=== PATIENT | female | born 1935 | race Caucasian/White ===

== ENCOUNTER → 2017-10-24 | Day surgery (SDC) | payer MEDICARE ==
[2017-10-18 11:37] VITALS: BMI 30.4
[~2017-10-24] MED LIST: SODIUM CHLORIDE 0.9% 1,000 ML IV SCH
[2017-10-24 08:08] VITALS: BP 166/76; PULSE 76; RESP 18; TEMP 97.7
--- NOTE | 2017-10-24 12:45 | P.PCN ---
Preoperative Diagnosis: Indication for the procedure Recurrent syncope Twelve-lead ECG shows sinus rhythm normal MI narrow QRS normal ST segments no delta waves no epsilon waves normal QT interval PACs noted Tilt table test for protocol Baseline blood pressure 145/80 mmHg Baseline heart is 69 beats a minute patient was tilted upright at an angle of 70 per protocol was no significant change in her blood pressure her blood pressure remained in the 140-150s. The procedure without any symptoms No evidence for neurocardiogenic syncope No evidence for dysautonomia Impression Telemetry ECG shows PACs only with normal conduction intervals Tilt table test shows normal heart rate and blood pressure response to upright tilting Anesthesia: none Condition: stable Disposition: same day
== END | disposition home or self-care (01) ==
LOC: CATHEP 07:43
PROVIDERS: ATTEND Internal Medicine Clinical Cardiac Electrophysiology
DX: R55 Syncope and collapse (principal)
CPT/HCPCS: 93660

== ENCOUNTER 2018-09-06 19:05 | Inpatient (IN) | payer MEDICARE ==
[2018-09-06] MEDS ORDERED: SODIUM CHLORIDE 0.9% 500 ML 500 ML IV STA (19:21)
--- NOTE | 2018-09-06 19:54 | ED ---
General Adult HPI - General Chief complaint: Altered Mental Status Stated complaint: Confusion Time Seen by Provider: 09/06/18 19:12 Source: patient, RN notes reviewed, old records reviewed Mode of arrival: wheelchair Limitations: no limitations - History of Present Illness Initial comments: 82-year-old female presents for evaluation generalized weakness and confusion. She has had confusion for the past several days according to family. She has not been eating or drinking well with decreased appetite. No vomiting. No pain complaints. She does note bilateral lower extremity swelling and erythema which is been present for many years. She denies dysuria but states she's had some urinary frequency. No abdominal pain, no vomiting or diarrhea. No chest pain or dyspnea. - Related Data Home Medications Medication Instructions Recorded Confirmed Melatonin 10 mg PO HS 10/15/13 09/06/18 Aspirin EC [Ecotrin Low Dose] 81 mg PO DAILY 09/06/18 09/06/18 Furosemide [Lasix] 40 mg PO DAILY 09/06/18 09/06/18 Meloxicam 15 mg PO DAILY 09/06/18 09/06/18 Metolazone [Zaroxolyn] 5 mg PO DAILY 09/06/18 09/06/18 Potassium Chloride ER [K-Dur 20] 20 meq PO DAILY 09/06/18 09/06/18 Pramipexole [Mirapex] 0.5 mg PO BID 09/06/18 09/06/18 rOPINIRole HCL [Requip] 2 mg PO BID 09/06/18 09/06/18 Allergies Allergy/AdvReac Type Severity Reaction Status Date / Time morphine Allergy Unknown Verified 09/06/18 20:26 erythromycin base AdvReac Unknown Verified 09/06/18 20:26 [Erythromycin Base] hydromorphone HCl AdvReac Itching Verified 09/06/18 20:26 [From Dilaudid] Penicillins AdvReac Rash/Hives Verified 09/06/18 20:26 flu vaccine Allergy Unknown Uncoded 09/06/18 19:10 Review of Systems ROS Statement: Those systems with pertinent positive or pertinent negative responses have been documented in the HPI. ROS Other: All systems not noted in ROS Statement are negative. Past Medical History Past Medical History: Asthma, Chest Pain / Angina, CVA/TIA, Deep Vein Thrombosis (DVT), GERD/Reflux Additional Past Medical History / Comment(s): hx ulcer, hiatal hernia. blood clot x 3 left leg, anemia, bruises easily; see Dr Velázquez's H&P History of Any Multi-Drug Resistant Organisms: None Reported Past Surgical History: Appendectomy, Bladder Surgery, Section, Heart Catheterization, Hysterectomy, Joint Replacement Additional Past Surgical History / Comment(s): gastrectomy, stomach tumor removed, stomach stapling, surgery to reattach ureters, left knee replacement Past Anesthesia/Blood Transfusion Reactions: Motion Sickness Additional Past Anesthesia/Blood Transfusion Reaction / Comment(s): motion sickness in past Past Psychological History: No Psychological Hx Reported Smoking Status: Former smoker - Past Family History Mother Family Medical History: No Reported History General Exam Limitations: no limitations General appearance: alert, in no apparent distress Head exam: Present: atraumatic, normocephalic Eye exam: Present: normal appearance, PERRL ENT exam: Present: mucous membranes dry Neck exam: Present: normal inspection. Absent: tenderness, meningismus Respiratory exam: Present: normal lung sounds bilaterally. Absent: respiratory distress, wheezes Cardiovascular Exam: Present: regular rate, normal rhythm GI/Abdominal exam: Present: soft. Absent: distended, tenderness, guarding Extremities exam: Present: pedal edema, joint swelling, other (Bilateral lower extremity erythema to the mid calf) Neurological exam: Present: alert, oriented X3, CN II-XII intact. Absent: motor sensory deficit Psychiatric exam: Present: normal affect, normal mood Skin exam: Present: warm, dry Course Vital Signs 09/06/18 09/06/18 09/06/18 19:08 19:30 20:00 Temperature 97.8 F Pulse Rate 71 78 78 Respiratory 16 18 18 Rate Blood Pressure 101/59 105/58 114/65 O2 Sat by Pulse 98 Oximetry EKG Findings - EKG Comments: EKG Findings:: EKG: Atrial fibrillation with poor baseline, no ST segment elevation. Rate is 71, QRS duration 94, QTC 430 Medical Decision Making - Medical Decision Making 82-year-old female presenting for generalized weakness, intermittent confusion over the past 3 days. She is alert and oriented at the time of my evaluation with stable vitals. She has a nonfocal neurologic exam. EKG is sinus rhythm. Chest x-ray negative for focal pneumonia or acute findings, head CT shows chronic ischemic changes, no acute processes. She has normal CBC. She is a sodium of 1:15. She has baseline hyponatremia with a sodium typically around 135. She is potassium at 2.3. Creatinine 1.20, lactic acid 4.7. She will be admitted for electrolyte Replacement, close monitoring of Sodium. Discussed case with Dr. Fan and Dr. Lyons. Diuretics will be held. Dr. Fan recommends sodium chloride infusion at a rate of 75 mL/h. Recommends rechecking sodium at midnight tonight. He will be called with these results. If sodium does not respond, patient will require ICU and hypertonic saline. - Lab Data Result diagrams: 09/06/18 19:25 09/06/18 19:25 Lab Results 09/06/18 09/06/18 09/06/18 Range/Units 19:25 19:25 19:25 WBC 10.3 (3.8-10.6) k/uL RBC 4.58 (3.80-5.40) m/uL Hgb 13.0 (11.4-16.0) gm/dL Hct 37.0 (34.0-46.0) % MCV 80.9 (80.0-100.0) fL MCH 28.5 (25.0-35.0) pg MCHC 35.2 (31.0-37.0) g/dL RDW 14.8 (11.5-15.5) % Plt Count 302 (150-450) k/uL Neutrophils % 79 % Lymphocytes % 13 % Monocytes % 4 % Eosinophils % 3 % Basophils % 1 % Neutrophils # 8.1 H (1.3-7.7) k/uL Lymphocytes # 1.4 (1.0-4.8) k/uL Monocytes # 0.4 (0-1.0) k/uL Eosinophils # 0.3 (0-0.7) k/uL Basophils # 0.1 (0-0.2) k/uL PT (9.0-12.0) sec INR (<1.2) APTT (22.0-30.0) sec Sodium 115 L* (137-145) mmol/L Potassium 2.3 L* (3.5-5.1) mmol/L Chloride 74 L* (98-107) mmol/L Carbon Dioxide 24 (22-30) mmol/L Anion Gap 17 mmol/L BUN 21 H (7-17) mg/dL Creatinine 1.20 H (0.52-1.04) mg/dL Est GFR (CKD-EPI)AfAm 48 (>60 ml/min/1.73 sqM) Est GFR (CKD-EPI)NonAf 42 (>60 ml/min/1.73 sqM) Glucose 212 H (74-99) mg/dL Plasma Lactic Acid Davin 4.7 H* (0.7-2.0) mmol/L Calcium 8.1 L (8.4-10.2) mg/dL Magnesium 1.9 (1.6-2.3) mg/dL Total Bilirubin 0.5 (0.2-1.3) mg/dL AST 31 (14-36) U/L ALT 22 (9-52) U/L Alkaline Phosphatase 154 H (38-126) U/L Troponin I (0.000-0.034) ng/mL Total Protein 6.2 L (6.3-8.2) g/dL Albumin 3.8 (3.5-5.0) g/dL 09/06/18 09/06/18 Range/Units 19:25 19:25 WBC (3.8-10.6) k/uL RBC (3.80-5.40) m/uL Hgb (11.4-16.0) gm/dL Hct (34.0-46.0) % MCV (80.0-100.0) fL MCH (25.0-35.0) pg MCHC (31.0-37.0) g/dL RDW (11.5-15.5) % Plt Count (150-450) k/uL Neutrophils % % Lymphocytes % % Monocytes % % Eosinophils % % Basophils % % Neutrophils # (1.3-7.7) k/uL Lymphocytes # (1.0-4.8) k/uL Monocytes # (0-1.0) k/uL Eosinophils # (0-0.7) k/uL Basophils # (0-0.2) k/uL PT 9.9 (9.0-12.0) sec INR 0.9 (<1.2) APTT 25.9 (22.0-30.0) sec Sodium (137-145) mmol/L Potassium (3.5-5.1) mmol/L Chloride (98-107) mmol/L Carbon Dioxide (22-30) mmol/L Anion Gap mmol/L BUN (7-17) mg/dL Creatinine (0.52-1.04) mg/dL Est GFR (CKD-EPI)AfAm (>60 ml/min/1.73 sqM) Est GFR (CKD-EPI)NonAf (>60 ml/min/1.73 sqM) Glucose (74-99) mg/dL Plasma Lactic Acid Davin (0.7-2.0) mmol/L Calcium (8.4-10.2) mg/dL Magnesium (1.6-2.3) mg/dL Total Bilirubin (0.2-1.3) mg/dL AST (14-36) U/L ALT (9-52) U/L Alkaline Phosphatase (38-126) U/L Troponin I 0.040 H* (0.000-0.034) ng/mL Total Protein (6.3-8.2) g/dL Albumin (3.5-5.0) g/dL Critical Care Time Critical Care Time: Yes Total Critical Care Time: 35 Disposition Clinical Impression: Hyponatremia, Hypokalemia Disposition: ADMITTED IP TO THIS [facility] Condition: Stable Is patient prescribed a controlled substance at d/c from ED?: No Referrals: Grzegorz Pandey MD [Primary Care Provider] - 1-2 days Decision to Admit Reason: Admit from EC Decision Date: 09/06/18 Decision Time: 21:16
[2018-09-06 20:01] LABS: Albumin 3.8 g/dL (3.5-5.0); Calcium 8.1 mg/dL (8.4-10.2); Magnesium 1.9 mg/dL (1.6-2.3); Total Bilirubin 0.5 mg/dL (0.2-1.3); Total Protein 6.2 g/dL (6.3-8.2)
[2018-09-06 20:05] LABS: Potassium 2.3 mmol/L (3.5-5.1)
--- NOTE | 2018-09-06 20:16 | CT ---
EXAMINATION TYPE: CT brain wo con DATE OF EXAM: 09/06/2018 COMPARISON: 09/21/2012 HISTORY: weakness and confusion CT DLP: 1142.4 mGycm Automated exposure control for dose reduction was used. FINDINGS: There is cerebral cortical atrophy. There is no mass effect nor midline shift. There is no sign of in tracranial hemorrhage. There is mild hypodensity in the periventricular white matter. Calvarium is in tact. IMPRESSION: MILD ATROPHY. CHRONIC SMALL VESSEL ISCHEMIA. NO ACUTE INTRACRANIAL ABNORMALITY. NO SIGNIFICANT CHANGE .
--- NOTE | 2018-09-06 20:17 | XR ---
EXAMINATION TYPE: XR chest 2V DATE OF EXAM: 09/06/2018 COMPARISON: 06/19/2009 HISTORY: Weakness TECHNIQUE: Frontal and lateral views of the chest are obtained. FINDINGS: Heart is normal. Lungs are clear of consolidation. Thoracic aorta is atheromatous. There i s osteopenia. There is no pleural effusion. IMPRESSION: No active cardiopulmonary disease. Normal heart. No change.
[2018-09-06 20:25] LABS: INR 0.9 (<1.2); Partial Thromboplastin Time 25.9 sec (22.0-30.0); Prothrombin Time 9.9 sec (9.0-12.0)
[2018-09-06 20:31] LABS: Basophils # (A) 0.1 k/uL (0-0.2); Basophils % (A) 1 %; Eosinophils # (A) 0.3 k/uL (0-0.7); Eosinophils % (A) 3 %; Lymphocytes # (A) 1.4 k/uL (1.0-4.8); Lymphocytes % (A) 13 %; MCH 28.5 pg (25.0-35.0); MCHC 35.2 g/dL (31.0-37.0); MCV 80.9 fL (80.0-100.0); Mean Platelet Volume 7.6; Monocytes # (A) 0.4 k/uL (0-1.0); Monocytes % (A) 4 %; Neutrophils # (A) 8.1 k/uL (1.3-7.7); Neutrophils % (A) 79 %; Platelet Count 302 k/uL (150-450); RBC 4.58 m/uL (3.80-5.40); RDW 14.8 % (11.5-15.5); WBC 10.3 k/uL (3.8-10.6)
[2018-09-06] MEDS ORDERED: POTASSIUM CHLORIDE ER 20 MEQ TAB.ER PO STA (20:45)
[2018-09-06] MEDS ORDERED: SODIUM CHLORIDE 0.9% 500 ML 500 ML IV ONE (20:59)
[2018-09-06] MEDS ORDERED: NALOXONE 0.4 MG/ML 1 ML VIAL IV PRN (21:00)
[2018-09-06] MEDS: ACETAMINOPHEN TAB 325 MG TAB PO PRN (21:29)
[2018-09-06] MEDS: SODIUM CHLORIDE 0.9% 1,000 ML IV SCH (21:30)
[2018-09-06] MEDS: POTASSIUM CHLORIDE 10 MEQ in WATER FOR INJECTION 1 100ML.BAG IVPB SCH ×2 (21:34→23:22)
[2018-09-06 22:37] LABS: Glucose,Whole Blood 140 mg/dL (75-99)
[2018-09-07 02:27] LABS: Basophils % (A) 0 %; Eosinophils # (A) 0.3 k/uL (0-0.7); Eosinophils % (A) 2 %; HCT 34.3 % (34.0-46.0); HGB 12.1 gm/dL (11.4-16.0); Lymphocytes # (A) 1.1 k/uL (1.0-4.8); Lymphocytes % (A) 11 %; MCH 28.3 pg (25.0-35.0); MCHC 35.3 g/dL (31.0-37.0); MCV 80.4 fL (80.0-100.0); Mean Platelet Volume 7.1; Monocytes # (A) 0.4 k/uL (0-1.0); Monocytes % (A) 4 %; Neutrophils # (A) 8.9 k/uL (1.3-7.7); Neutrophils % (A) 82 %; Platelet Count 297 k/uL (150-450); RBC 4.26 m/uL (3.80-5.40); RDW 14.2 % (11.5-15.5); WBC 10.8 k/uL (3.8-10.6)
[2018-09-07 02:45] LABS: Albumin 3.3 g/dL (3.5-5.0); Magnesium 1.9 mg/dL (1.6-2.3); Phosphorus 2.3 mg/dL (2.5-4.5); Total Bilirubin 0.7 mg/dL (0.2-1.3); Total Protein 5.7 g/dL (6.3-8.2)
[2018-09-07 02:57] LABS: Potassium 2.4 mmol/L (3.5-5.1)
[2018-09-07] MEDS: POTASSIUM CHLORIDE 10 MEQ in WATER FOR INJECTION 1 100ML.BAG IVPB SCH (03:10)
[2018-09-07 03:30] LABS: Appearance,Urine Clear (Clear); Bacteria,Urine Rare /hpf; Bilirubin,Urine Negative (Negative); Blood,Urine Moderate (Negative); Color,Urine Colorless; Glucose,Urine (UA) Negative (Negative); Ketones,Urine Negative (Negative); Leukocyte Esterase,Urine Large (Negative); Nitrite,Urine Positive (Negative); PH, Urine 6.5 (5.0-8.0); Protein,Urine Negative (Negative); RBC,Urine 1 /hpf (0-5); Specific Gravity,Urine 1.004 (1.001-1.035); Urobilinogen,Urine <2.0 mg/dL (<2.0); WBC,Urine 14 /hpf (0-5)
[2018-09-07] MEDS: POTASSIUM CHLORIDE ER 20 MEQ TAB.ER PO SCH ×7 (03:50→21:56)
[2018-09-07] MEDS ORDERED: POTASSIUM PHOSPHATE 20 MMOL in SODIUM CHLORIDE 0.9% 250 ML IV ONE (04:00)
[2018-09-07] MEDS: ACETAMINOPHEN TAB 325 MG TAB PO PRN (06:33)
[2018-09-07 09:31] LABS: Potassium 2.9 mmol/L (3.5-5.1)
--- NOTE | 2018-09-07 09:45 | P.NPCON ---
History of Present Illness - Reason for Consult hyponatremia - History of Present Illness Reason for consultation: Hyponatremia History of present illness: Patient is a 82-year-old female seen in renal consultation for hyponatremia. Patient's sodium level was 115 on admission and she was also extremely h ypokalemic with a potassium level of 2.3. Patient's lactic acid level was high at 4.7. Patient was also noted to be in acute kidney injury with creatinine of 1.2. Patient received 1 L of normal saline in the ER. She was subsequently started on normal saline at 75 mL an hour. Sodium level has been gradually improving and is up to 123 this morning. Additionally she was noted to have severe urinary retention. Rascon catheter was placed and 1.8 L of urine was obtained. She is still maintained on normal saline at 75 mL an hour. Urine output has been about 100 mL an hour. Patient states her oral intake has been relatively fair but she does made to drinking 2-3 glasses of water, 8-10 Cokes, and 2 cans of beer almost on a daily basis. She was also taking meloxicam as well as Lasix at home. No hematuria or dysuria. No history of kidney disease. Creatinine is down to 0.99 today. Potassium level is up to 2.9. Vital signs are stable. General: The patient appeared well nourished and normally developed. HEENT: Head exam is unremarkable. Neck is without jugular venous distension. LUNGS: Lungs are clear to auscultation and percussion. Breath sounds decreased. HEART: Rate and Rhythm are regular. First and second heart sounds normal. No murmurs, rubs or gallops. ABDOMEN: Abdominal exam reveals normal bowel sounds. Non-tender and non- distended. No evidence of peritonitis. EXTREMITITES: No clubbing, cyanosis, or edema. Past Medical History Past Medical History: Asthma, Chest Pain / Angina, CVA/TIA, Deep Vein Thrombosis (DVT), GERD/Reflux Additional Past Medical History / Comment(s): hx ulcer, hiatal hernia. blood clot x 3 left leg, anemia, syncope,bruises easily; see Dr Velázquez's H&P History of Any Multi-Drug Resistant Organisms: None Reported Past Surgical History: Bladder Surgery, Section, Heart Catheterization, Hysterectomy, Joint Replacement Additional Past Surgical History / Comment(s): gastrectomy, stomach tumor re moved, stomach stapling, surgery to reattach ureters, left knee replacement Past Anesthesia/Blood Transfusion Reactions: Motion Sickness Additional Past Anesthesia/Blood Transfusion Reaction / Comment(s): motion sickness in past Past Psychological History: No Psychological Hx Reported Smoking Status: Former smoker Past Alcohol Use History: Daily Additional Past Alcohol Use History / Comment(s): smoked years ago socially; drinks 2 beers daily Past Drug Use History: None Reported - Past Family History Mother Family Medical History: Cancer Additional Family Medical History / Comment(s): "throat" CA Medications and Allergies Home Medications Medication Instructions Recorded Confirmed Type Melatonin 10 mg PO HS 10/15/13 09/06/18 History Aspirin EC [Ecotrin Low Dose] 81 mg PO DAILY 09/06/18 09/06/18 History Furosemide [Lasix] 40 mg PO DAILY 09/06/18 09/06/18 History Meloxicam 15 mg PO DAILY 09/06/18 09/06/18 History Metolazone [Zaroxolyn] 5 mg PO DAILY 09/06/18 09/06/18 History Potassium Chloride ER [K-Dur 20] 20 meq PO DAILY 09/06/18 09/06/18 History Pramipexole [Mirapex] 0.5 mg PO BID 09/06/18 09/06/18 History rOPINIRole HCL [Requip] 2 mg PO BID 09/06/18 09/06/18 History Allergies Allergy/AdvReac Type Severity Reaction Status Date / Time morphine Allergy Unknown Verified 09/06/18 20:26 erythromycin base AdvReac Unknown Verified 09/06/18 20:26 [Erythromycin Base] hydromorphone HCl AdvReac Itching Verified 09/06/18 20:26 [From Dilaudid] Penicillins AdvReac Rash/Hives Verified 09/06/18 20:26 flu vaccine Allergy Unknown Uncoded 09/06/18 19:10 Physical Exam Vitals: Vital Signs Temp Pulse Pulse Resp BP BP Pulse Ox 09/07/18 08:00 97.2 F L 73 16 102/68 98 09/07/18 07:00 80 20 98 09/07/18 06:00 69 14 09/07/18 04:00 97.6 F 76 18 102/68 98 09/07/18 00:30 64 16 122/76 99 09/06/18 22:10 98 09/06/18 22:07 97.8 F 14 109/70 99 09/06/18 22:00 97.8 F 71 18 105/66 09/06/18 21:50 20 102/61 09/06/18 21:40 16 102/61 09/06/18 21:30 79 17 100/79 100 09/06/18 21:20 67 19 100/79 80 L 09/06/18 21:10 72 15 100/79 99 09/06/18 21:00 77 15 108/78 85 L 09/06/18 20:50 70 17 108/78 80 L 09/06/18 20:40 75 11 L 108/78 84 L 09/06/18 20:00 78 18 114/65 09/06/18 19:30 78 18 105/58 09/06/18 19:08 97.8 F 71 16 101/59 98 Intake and Output 09/06/18 09/07/18 09/07/18 22:59 06:59 14:59 Intake Total 175 850 385 Output Total 50 2710 175 Balance 125 -1860 210 Intake: IV 175 700 325 Potassium Chloride 10 meq 100 100 In Water For Injection 1 100ml.bag @ 100 mls/hr IVPB Q1H [facility] Rx#: [id number] Potassium Phosphate 20 250 mmol In Sodium Chloride 0 .9% 250 ml @ 125 mls/hr IV ONCE ONE Rx#:[id number] Sodium Chloride 0.9% 1, 75 600 75 000 ml @ 75 mls/hr IV . [id number] [facility] Rx#:[id number] Oral 150 60 Output: Urine 50 2710 175 Other: Voiding Method Indwelling Catheter # Voids 1 # Bowel Movements 1 1 Weight 70.307 kg 71.5 kg Results - Lab Results Most recent lab results Calcium 8.0 mg/dL (8.4-10.2) L 09/07/18 02:00 Phosphorus 2.3 mg/dL (2.5-4.5) L 09/07/18 02:00 Magnesium 1.9 mg/dL (1.6-2.3) 09/07/18 02:00 09/07/18 02:00 09/07/18 09:10 Assessment and Plan Plan: Assessment: 1. Hypovolemic hyponatremia improving with normal saline. Additionally there is also component of urinary retention. Sodium level was 115 on admission and is up to 123 this morning. 2. Urinary retention status post Rascon catheter placement. 3. Hypokalemia from poor oral intake and diuretics. Magnesium normal. 4. Hypophosphatemia from poor oral intake and diuretics. 5. Acute kidney injury mostly prerenal secondary to intravascular volume depletion from diuretics and poor oral intake. Better. Plan: Discontinue normal saline. Start D5W at 70 mL an hour. Recheck sodium level at 1 PM. Continue with potassium and phosphorus of placement. Continue to hold diuretics. Avoid rapid correction of hyponatremia. Check serum osmolality, urine osmolality and urine sodium. Check TSH and uric acid. Thank you for the consultation. I will continue to follow the patient with you during her hospital stay.
[2018-09-07] MEDS: DEXTROSE 5% IN WATER 1,000 ML IV SCH ×2 (09:47→21:57)
[2018-09-07 10:18] LABS: Uric Acid 7.7 mg/dL (3.7-7.4)
[2018-09-07] MEDS: ASPIRIN 81 MG PO SCH (14:57)
[2018-09-07] MEDS: ENOXAPARIN 40 MG/0.4 ML SYRINGE SQ SCH (14:58)
[2018-09-07 17:24] LABS: Potassium 3.2 mmol/L (3.5-5.1)
--- NOTE | 2018-09-07 17:33 | HP ---
HISTORY AND PHYSICAL DATE OF ADMISSION: 09/06/18 DATE OF SERVICE: 09/07/18 PRESENTING COMPLAINT: Slightly confused, weak. HISTORY OF PRESENTING COMPLAINT: This is a pleasant 82-year-old patient of Dr. Pandey from [place]. The patient lives by herself. Chronic stable medical conditions include asthma, GERD, hiatal hernia. The patient presented to the ER yesterday evening. The patient's daughter lives a few doors away from her and according to the daughter, patient had been getting increasingly more confused in the last few days. The patient's appetite had gone down. Not been eating and drinking too well. No vomiting. No fever. No chills. The patient has chronic bilateral lower extremity swelling and erythema. The patient was found to have a low sodium of sodium of 115 and she was admitted for telemetry monitoring. Nephrology was consulted. Initially, IV fluids were given. The patient's urine output had been not been good, but then patient was found a urine retention of 1800 mL and patient did put out good urine. The patient is being monitored on telemetry. The patient does drink a lot of water, likes to have a couple of beers a day and also loves to drink Coke. REVIEW OF SYSTEMS: CONSTITUTIONAL: Tired. HEENT: Decreased hearing. RESPIRATORY: None. CARDIOVASCULAR: None. GASTROINTESTINAL: Some heartburn. GENITOURINARY: None. MUSCULOSKELETAL: Arthritic pain in the joints. DERMATOLOGICAL, HEMATOLOGIC, LYMPHATIC: None. PSYCHIATRY: Forgetful. NEUROLOGICAL: Does use a cane to get about. PAST MEDICAL HISTORY: Asthma, TIA, DVT, GERD, hiatal hernia, peptic ulcer disease. PAST SURGICAL HISTORY: Bladder surgery, , cardiac catheterization, gastrectomy, stomach tumor removed, stomach stapling surgery to reattach ureters, left knee replacement. SOCIAL HISTORY: Smokes occasionally. Drinks 2 beers a day. Drinks a lot of water. Lives by herself. Daughter lives a few doors away. FAMILY HISTORY: Throat cancer. HOME MEDICATIONS: 1. Requip 2 mg b.i.d. 2. Mirapex 0.5 mg b.i.d. 3. Melatonin 10 mg q.h.s. 4. Potassium 20 mEq a day. 5. Zaroxolyn 5 mg daily. 6. Meloxicam 50 mg p.o. daily. 7. Lasix 40 mg daily. 8. Aspirin 81 mg p.o. daily. ALLERGIES: MORPHINE, ERYTHROMYCIN, DILAUDID, PENICILLIN, FLU VACCINE. PHYSICAL EXAMINATION: On examination: Temperature 97.8, pulse 71, respirations 16, blood pressure 101/59, pulse ox 98% on room air. GENERAL APPEARANCE: Average build, sitting up in a chair, awake. EYES: Pupils equal. Conjunctivae normal. HEENT: External appearance of nose and ears normal. Oral cavity normal. Decreased hearing. NECK: JVD not raised. Mass not palpable. RESPIRATORY: Effort normal. LUNGS: Fair entry. CARDIOVASCULAR: First and second sounds normal. Nonpitting edema. ABDOMEN: Soft, nontender. Liver and spleen not palpable. LYMPHATIC: No lymph nodes palpable in the neck and axilla. PSYCHIATRY: Patient is able to answer simple questions. NEUROLOGICAL: Pupils equal. Cranial nerves grossly intact. Power and sensation grossly intact. MUSCULOSKELETAL: Evidence of osteoarthritis especially in the hands and knees. INVESTIGATIONS: White count 10.3, hemoglobin 13. Sodium 115, potassium 2.3, chloride 74, BUN 21, creatinine 1.20. Plasma lactic acid 4.7, troponin 0.040. ASSESSMENT: 1. Acute severe hyponatremia, hypoosmolar from hypovolemia from severe diuretics and patient also drinking water on top of that, symptomatic. 2. Severe hypokalemia from aggressive diuresis. 3. Acute metabolic encephalopathy on presentation from severe hyponatremia. 4. Restless legs syndrome. 5. Chronic idiopathic insomnia for which patient takes melatonin. 6. Chronic lower extremity venous insufficiency. 7. Primary osteoarthritis. PLAN: Patient was treated with saline, sodium has been coming up. Potassium been aggressively replaced. Care was discussed with the daughter at the bedside. The patient told to adjust the way she drinks her fluids and of course patient's diuretics have been discontinued for right now. The patient's IV fluids will be adjusted accordingly. Will monitor slow correction of sodium. Follow up with Nephrology. Care was discussed with the patient and daughter at the bedside. MMODL / IJN: [id number] /
[2018-09-07] MEDS: SODIUM CHLORIDE 0.9% 1,000 ML IV SCH (21:33)
[2018-09-07] MEDS: PRAMIPEXOLE 0.5 MG TAB PO SCH (21:56)
[2018-09-07] MEDS: MELATONIN 5 MG TABLET PO SCH (21:56)
[2018-09-07 22:30] LABS: Potassium 3.9 mmol/L (3.5-5.1)
[2018-09-08] MEDS ORDERED: DESMOPRESSIN ACETATE 4 MCG/ML VIAL (MDV) IV ONE
[2018-09-08] MEDS: POTASSIUM CHLORIDE ER 20 MEQ TAB.ER PO SCH (00:05)
[2018-09-08] MEDS: DEXTROSE 5% IN WATER 1,000 ML IV SCH ×2 (01:30→21:20)
[2018-09-08 06:04] LABS: Calcium 8.7 mg/dL (8.4-10.2); Phosphorus 2.7 mg/dL (2.5-4.5); Potassium 4.6 mmol/L (3.5-5.1)
[2018-09-08] MEDS: ASPIRIN 81 MG PO SCH (08:06)
[2018-09-08] MEDS: ENOXAPARIN 40 MG/0.4 ML SYRINGE SQ SCH (08:06)
[2018-09-08] MEDS: PRAMIPEXOLE 0.5 MG TAB PO SCH ×2 (08:07→22:21)
--- NOTE | 2018-09-08 15:04 | PN ---
PROGRESS NOTE Patient is seen for followup for hyponatremia. Patient's serum sodium was 115 at the time of admission. It did go up to 124 yesterday on 09/07, and patient was started on D5W. She also received a dose of DDAVP to avoid rapid correction. Since then, the serum sodium has been at about 125 mEq/L for the last 3 readings since last night. The patient has had oral intake. She is currently not on any IV fluids. Urine osmolality was 147. Random urine sodium was 38. The patient did admit to decreased intake of protein prior to admission. She was also hypokalemic and has had potassium replacement. On examination, blood pressure was 119/66, heart rate 75 per minute, patient is afebrile. Examination of the heart, S1, S2. Examination of the lungs, bilateral breath sounds are heard. Abdomen is soft, nontender. Examination of the lower extremities shows no significant edema. 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 LABS: Show sodium 125 this morning, potassium 4.6, serum creatinine 0.78. ASSESSMENT: 1. Hyponatremia, initially hypovolemic currently improved. Serum sodium did increase rapidly. Therefore, the fluids were changed to D5W for some time, and patient also received a dose of DDAVP last night. At this time, her sodium is staying at about 125 and we can allow the serum sodium to rise now since it has been 2 days since admission. The patient has had increased oral intake. Hopefully, this will help. I will not keep her on any fluid restriction. We will recheck his serum sodium this evening. If it has not improved much, saline will be restarted. 2. Urine retention, currently with Rascon catheter. 3. Hypokalemia from decreased oral intake and diuretics, currently replaced. 4. Acute kidney injury, currently improved. Serum creatinine down from 1.2 to 0.78. PLAN: Continue to encourage increased oral intake. Repeat serum sodium this evening. If not further improved, I will add normal saline. MMODL / IJN: [id number] /
[2018-09-08] MEDS ORDERED: SODIUM CHLORIDE 0.9% 1,000 ML IV SCH (20:15)
[2018-09-08] MEDS: MELATONIN 5 MG TABLET PO SCH (22:21)
[2018-09-09 00:28] LABS: African American GFR (CKD) >90 (>60 ml/min/1.73 sqM); Anion Gap 8 mmol/L; Blood Urea Nitrogen 12 mg/dL (7-17); Calcium 8.6 mg/dL (8.4-10.2); Carbon Dioxide 23 mmol/L (22-30); Chloride 90 mmol/L (98-107); Glucose 121 mg/dL (74-99); Potassium 4.1 mmol/L (3.5-5.1); Sodium 121 mmol/L (137-145)
--- NOTE | 2018-09-09 06:19 | PN ---
PROGRESS NOTE DATE OF SERVICE: 09/08/2018 PRESENTING COMPLAINT: Tired. INTERVAL HISTORY: This patient presented with symptomatic hyponatremia, hypoosmolar, hypovolemic from severe diuretic. Sodium is slowly coming up. Patient had initially received IV fluids. The patient made a lot of urine output today, was given a dose of DDAVP. Potassium replaced. Moved out of ICU. REVIEW OF SYSTEMS: Done for constitutional, cardiovascular, GI, pulmonary; relevant findings as above. CURRENT MEDICATIONS: Current medications are reviewed that include normal saline. PHYSICAL EXAMINATION: On examination, temperature 96.9, pulse 58, respiration 16, blood pressure 138/64, pulse ox 98% on room air. GENERAL APPEARANCE: Lying in bed, comfortable. EYES: Pupils equal. Conjunctivae normal. NECK: JVD not raised. Mass not palpable. RESPIRATORY: Effort normal. LUNGS: Are clear. CARDIOVASCULAR: First and second sounds normal. Nonpitting edema. ABDOMEN: Soft, nontender. Liver and spleen not palpable. PSYCHIATRY: Alert and oriented x3. Mood and affect normal. INVESTIGATIONS: Sodium 125. ASSESSMENT: 1. Severe hyponatremia initially hypovolemic, hypoosmolar, slowly coming up. The patient has been put back on saline. 2. Severe hypokalemia, being replaced. 3. Acute metabolic encephalopathy on presentation from severe hyponatremia improving. 4. Restless legs syndrome. 5. Chronic idiopathic insomnia for which patient takes melatonin. 6. Chronic lower extremity venous insufficiency. 7. Primary osteoarthritis. PLAN: Continue current medication and treatment plan. Care was discussed with the patient. Follow with Nephrology. MMODL / IJN: [id number] /
[2018-09-09] MEDS: ENOXAPARIN 40 MG/0.4 ML SYRINGE SQ SCH (08:38)
[2018-09-09] MEDS: ASPIRIN 81 MG PO SCH (08:38)
[2018-09-09] MEDS: PRAMIPEXOLE 0.5 MG TAB PO SCH ×2 (08:38→20:03)
[2018-09-09] MEDS ORDERED: SODIUM CHLORIDE TAB 1 GM TAB PO STA ×2 (10:42→22:19)
[2018-09-09] MEDS ORDERED: FUROSEMIDE 10 MG/ML 2 ML VIAL IV STA (10:43)
--- NOTE | 2018-09-09 14:14 | PN ---
PROGRESS NOTE Patient is seen for followup for hyponatremia. His serum sodium had gone up from 115 to 125 for which she was given a dose of DDAVP to prevent rapid increase in the sodium. Patient also received D5W for short periods of time. Following that, his serum sodium has been staying at 125. It did drop down to 123 yesterday and this morning it is at 121. Patient was started on normal saline last night and currently I have held it as his serum sodium has dropped. The patient will be maintained on fluid restriction and will give her a dose of sodium chloride tabs today. 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 PHYSICAL EXAMINATION: Today, blood pressure was 120/61, heart rate 67 per minute. She is afebrile. Examination of the heart S1, S2. Examination of the lungs, bilateral breath sounds are heard. Abdomen is soft, nontender. Examination of the lower extremities shows no significant edema. BAGGAGE SMASHER exam is grossly intact. LABS: Shows sodium 121, potassium 4.1, serum creatinine 0.7. ASSESSMENT: 1. Hyponatremia, euvolemic, initially hypovolemic and improved with saline, status post DDAVP to prevent . Patient was started on saline last night and her sodium level dropped this morning, therefore, I will discontinue the normal saline and will be give her a sodium chloride tab and repeat sodium this evening. She should be maintained on fluid restriction as well. The patient is advised to increase protein in her diet. Urine osmolality was significantly low, suggesting underlying tea and toast syndrome. I will check another urine osmolality state. 2. Urine retention status post Rascon catheter. 3. Acute kidney injury, mainly prerenal currently improved and resolved. 4. Hypokalemia from decreased oral intake, status post replacement. PLAN: Continue to hold off on diuretics, sodium chloride 2 g p.o. x1 now, maintain patient off of IV fluids and repeat sodium this afternoon and maintain patient on fluid restriction as well. Increase protein intake. MMODL / IJN: [id number] /
[2018-09-09] MEDS: MELATONIN 5 MG TABLET PO SCH (20:08)
--- NOTE | 2018-09-10 06:26 | PN ---
PROGRESS NOTE DATE OF SERVICE: September 09, 2018 PRESENTING COMPLAINT: Tired. INTERVAL HISTORY: Patient presented symptomatic hyponatremia, hypoosmolar, hypovolemic from severe diuresis. Sodium is holding around 125. Occasionally patient has been delirious. The patient is status post normal saline. Did tolerate some diet. Otherwise comfortable. Daughter at the bedside. The patient is on the medical floor. REVIEW OF SYSTEMS: Done for constitutional, cardiovascular, GI, pulmonary and relevant findings as above. CURRENT MEDICATIONS: Reviewed. The patient is off normal saline. PHYSICAL EXAMINATION: VITAL SIGNS: Temperature 97.1 pulse 67, respiration 17, blood pressure 116/66, pulse ox 100 percent on room air. GENERAL APPEARANCE: Lying in bed, awake. EYES: Pupils equal. Conjunctivae normal. NECK: JVD not raised. Mass not palpable. RESPIRATORY: Effort normal. LUNGS: Clear. CARDIOVASCULAR: First and second sounds normal. Nonpitting edema. ABDOMEN: Soft, nontender. Liver and spleen not palpable. PSYCHIATRY: Alert, oriented x3. Mood and affect normal. INVESTIGATIONS: Sodium 122, potassium 4.1. ASSESSMENT: 1. Severe hyponatremia, initially hypovolemic, hypoosmolar, now slow to respond. 2. Severe hypokalemia, being replaced. 3. Acute metabolic encephalopathy on presentation with severe hypernatremia, improving. 4. Restless legs syndrome. 5. Chronic idiopathic insomnia. 6. Chronic lower extremity venous insufficiency. 7. Primary osteoarthritis. PLAN: We will add salt tablets. I told the patient to hold off on drinking clear liquids and habit in a different form, for example, chicken broth or juices. Repeat serum osmolality in the morning. MMODL / IJN: [id number] /
[2018-09-10 07:08] LABS: African American GFR (CKD) >90 (>60 ml/min/1.73 sqM); Anion Gap 8 mmol/L; Blood Urea Nitrogen 9 mg/dL (7-17); Calcium 8.8 mg/dL (8.4-10.2); Carbon Dioxide 28 mmol/L (22-30); Chloride 89 mmol/L (98-107); Glucose 124 mg/dL (74-99); Potassium 3.8 mmol/L (3.5-5.1); Sodium 125 mmol/L (137-145)
[2018-09-10 07:38] LABS: Basophils # (A) 0.1 k/uL (0-0.2); Basophils % (A) 1 %; Eosinophils # (A) 0.3 k/uL (0-0.7); Eosinophils % (A) 3 %; HCT 35.7 % (34.0-46.0); HGB 11.8 gm/dL (11.4-16.0); Lymphocytes # (A) 1.5 k/uL (1.0-4.8); Lymphocytes % (A) 20 %; MCH 28.4 pg (25.0-35.0); MCHC 33.2 g/dL (31.0-37.0); Mean Platelet Volume 7.4; Monocytes # (A) 0.4 k/uL (0-1.0); Monocytes % (A) 5 %; Neutrophils # (A) 5.2 k/uL (1.3-7.7); Neutrophils % (A) 69 %; Platelet Count 293 k/uL (150-450); RBC 4.16 m/uL (3.80-5.40); WBC 7.5 k/uL (3.8-10.6)
[2018-09-10 07:41] LABS: MCV 85.7 fL (80.0-100.0)
[2018-09-10] MEDS: ACETAMINOPHEN TAB 325 MG TAB PO PRN (07:55)
[2018-09-10] MEDS: PRAMIPEXOLE 0.5 MG TAB PO SCH ×2 (07:56→21:00)
[2018-09-10] MEDS: ASPIRIN 81 MG PO SCH (07:56)
[2018-09-10] MEDS: ENOXAPARIN 40 MG/0.4 ML SYRINGE SQ SCH (07:56)
[2018-09-10] MEDS: SODIUM CHLORIDE TAB 1 GM TAB PO SCH ×3 (07:56→21:00)
--- NOTE | 2018-09-10 20:47 | PN ---
PROGRESS NOTE Patient is seen for followup for hyponatremia. This morning, patient is comfortable. She feels well. She received sodium chloride tabs yesterday. The sodium is up to 125. Overall, patient denies any other significant complaints. PHYSICAL EXAMINATION: This morning blood pressure was 117/69, heart rate 74 per minute. She is afebrile. Examination of the heart S1, S2. Examination of the lungs, bilateral breath sounds are heard. Abdomen is soft, nontender. Examination of lower extremities shows trace edema bilaterally. OUTREACH ANALYST exam is grossly intact. LABS: Show sodium 125, potassium 3.8, serum creatinine 0.7, calcium was 8.8. ASSESSMENT: 1. 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 The patient received sodium chloride tabs, which has helped with her serum sodium level. She has been started on a regular dose of sodium chloride tablets. I will, however, decrease the dose to twice a day. It is quite a large sodium load for this elderly patient if we give it as 4 times a day. 2. Metabolic encephalopathy secondary to hyponatremia on initial admission, currently improved. 3. Chronic lower extremity insufficiency. PLAN: Maintain good oral protein intake. Continue with salt tablets, but decrease to twice a day. Repeat labs in a.m.. MMODL / IJN: [id number] /
[2018-09-10] MEDS: MELATONIN 5 MG TABLET PO SCH (21:00)
--- NOTE | 2018-09-10 22:22 | PN ---
PROGRESS NOTE DATE OF SERVICE: September 10, 2018 PRESENTING COMPLAINT: Low sodium. INTERVAL HISTORY: Patient presented with symptomatic hyponatremia hypoosmolar hypovolemic from increased free fluid intake and using diuretics. Sodium tablets were added yesterday. The patient has been told to cut back on free fluid. Sodium is slowly coming up. Did walk a few steps in the room. Oral intake oral intake is good. Daughter at the bedside. No new issues. REVIEW OF SYSTEMS: Done for constitutional, cardiovascular, GI, pulmonary; relevant findings as above. CURRENT MEDICATIONS: Reviewed that include sodium tablets 2 tablets twice a day. PHYSICAL EXAMINATION: Temperature 97.8. Pulse 67, respiration 20, blood pressure 106/67. Pulse ox 99% on room air. GENERAL APPEARANCE: Lying in bed, awake, comfortable. EYES: Pupils are equal. Conjunctivae normal. NECK: JVD not raised. Mass not palpable. RESPIRATORY: Effort normal. LUNGS are clear. CARDIOVASCULAR: First and second sounds normal. No edema. ABDOMEN: Soft, nontender. Liver and spleen not palpable. PSYCHIATRY: Alert and oriented times three. Mood and affect normal. INVESTIGATIONS: White count 7.5, hemoglobin 11.8, potassium 3.8. Sodium is 125, serum osmolality is 257. ASSESSMENT: 1. Severe hyponatremia, initially hypovolemic, hypoosmolar, slow to respond. 2. Severe hypokalemia. Potassium being replaced. 3. Acute metabolic encephalopathy on presentation, improved. 4. Restless legs syndrome. 5. Chronic idiopathic insomnia. 6. Chronic lower extremity venous insufficiency. 7. Primary osteoarthritis. PLAN: Care was discussed with the daughter at the bedside. Continue to follow. Check sodium. Follow up with Nephrology. MMODL / IJN: [id number] /
[2018-09-11] MEDS: ASPIRIN 81 MG PO SCH (07:38)
[2018-09-11] MEDS: PRAMIPEXOLE 0.5 MG TAB PO SCH ×2 (07:38→20:06)
[2018-09-11] MEDS: SODIUM CHLORIDE TAB 1 GM TAB PO SCH ×3 (07:38→20:06)
[2018-09-11] MEDS: ENOXAPARIN 40 MG/0.4 ML SYRINGE SQ SCH (07:39)
[2018-09-11 07:52] LABS: African American GFR (CKD) >90 (>60 ml/min/1.73 sqM); Anion Gap 6 mmol/L; Blood Urea Nitrogen 10 mg/dL (7-17); Calcium 8.9 mg/dL (8.4-10.2); Carbon Dioxide 28 mmol/L (22-30); Chloride 92 mmol/L (98-107); Glucose 123 mg/dL (74-99); Potassium 4.1 mmol/L (3.5-5.1); Sodium 126 mmol/L (137-145)
--- NOTE | 2018-09-11 14:13 | PN ---
PROGRESS NOTE Patient is seen for followup for hyponatremia. Her serum sodium continues to improve. She has been maintained on sodium chloride tabs. Patient's blood pressure has been running low and her urine osmolality was low as well, seems to be responding to the sodium chloride tablets fairly with increase in the sodium to 126 today. On examination, blood pressure was 107/60, heart rate of 96 per minute. Patient is afebrile. Examination of the heart, S1, S2. Examination of the lungs, bilateral breath sounds are heard. Abdomen is soft, nontender. Examination of the lower extremities shows no significant edema. LABS: Show sodium 126, potassium 4.1, serum creatinine 0.9. ASSESSMENT: 1. Hyponatremia secondary to underlying decreased urine osmolality but has similar tea and toast syndrome, maintained on sodium chloride tablets with improvement in the sodium level. 2. Metabolic encephalopathy secondary to hyponatremia on initial admission, currently improved. 3. Hypokalemia on initial admission, now resolved. 4. Acute kidney injury, currently resolved, which was mainly prerenal. PLAN: Continue with the sodium chloride tablets. Repeat labs in a.m. Consider 1 dose of tolvaptan. We will proceed with that if the sodium is not significantly improved tomorrow. MMODL / IJN: [id number] /
[2018-09-11] MEDS: MELATONIN 5 MG TABLET PO SCH (20:06)
[2018-09-12 04:30] VITALS: TEMP 97.7
[2018-09-12] MEDS: ACETAMINOPHEN TAB 325 MG TAB PO PRN (04:32)
[2018-09-12 07:44] LABS: African American GFR (CKD) >90 (>60 ml/min/1.73 sqM); Anion Gap 7 mmol/L; Blood Urea Nitrogen 10 mg/dL (7-17); Carbon Dioxide 26 mmol/L (22-30); Chloride 95 mmol/L (98-107); Glucose 104 mg/dL (74-99); Potassium 3.6 mmol/L (3.5-5.1); Sodium 128 mmol/L (137-145)
[2018-09-12 08:16] LABS: Basophils # (A) 0.1 k/uL (0-0.2); Basophils % (A) 1 %; Eosinophils # (A) 0.2 k/uL (0-0.7); Eosinophils % (A) 4 %; HCT 35.3 % (34.0-46.0); Lymphocytes # (A) 1.9 k/uL (1.0-4.8); Lymphocytes % (A) 28 %; MCHC 33.9 g/dL (31.0-37.0); MCV 85.6 fL (80.0-100.0); Mean Platelet Volume 7.4; Monocytes # (A) 0.3 k/uL (0-1.0); Monocytes % (A) 5 %; Neutrophils # (A) 4.2 k/uL (1.3-7.7); Neutrophils % (A) 61 %; Platelet Count 292 k/uL (150-450); RBC 4.13 m/uL (3.80-5.40); RDW 15.4 % (11.5-15.5); WBC 6.8 k/uL (3.8-10.6)
[2018-09-12 09:15] VITALS: BP 122/57; PULSE 85; RESP 16
--- NOTE | 2018-09-12 09:29 | PN ---
PROGRESS NOTE Patient is seen for followup for hyponatremia. His serum sodium continues to improve. She is maintained on sodium chloride tabs. On admission, patient's urine osmolality was low at 147 . She has been encouraged to increase her oral intake. There is a component of tea and toast syndrome on initial admission. PHYSICAL EXAMINATION: This morning, patient is comfortable. Blood pressure is 143/64, heart rate 65 per minute. She is afebrile. Examination of the heart, S1, S2. Examination of the lungs, bilateral breath sounds are heard. Abdomen is soft, nontender. Examination of the lower extremities shows no significant edema. MEDICAL OBSERVER exam is grossly intact. LABS: Show sodium 128, potassium 3.6, chloride 95, serum creatinine 0.65. ASSESSMENT: 1. 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 Patient could be discharged on sodium chloride tabs but she will need close followup as we need to be cautious with using high-dose sodium chloride in elderly. Patient's blood pressure is not elevated and she does not have significant edema currently. 2. Metabolic encephalopathy secondary to hyponatremia on initial admission, currently resolved. 3. Acute kidney injury on initial admission, mainly prerenal currently resolved. PLAN: Continue with sodium chloride tabs as outpatient. However, I would maintain it at 1 g twice a day with close followup as outpatient. MMODL / IJN: [id number] /
[2018-09-12] MEDS: PRAMIPEXOLE 0.5 MG TAB PO SCH (10:08)
[2018-09-12] MEDS: SODIUM CHLORIDE TAB 1 GM TAB PO SCH (10:08)
[2018-09-12] MEDS: ASPIRIN 81 MG PO SCH (10:08)
[2018-09-12] MEDS: ENOXAPARIN 40 MG/0.4 ML SYRINGE SQ SCH (10:09)
[2018-09-12 13:54] VITALS: BMI 28.8
== END 2018-09-12 14:16 | disposition home health service (06) | DRG 640 ==
LOC: EC 19:05 → 2SICU 21:03 → 3SCARD 09-08 13:52
PROVIDERS: ADMIT Hospitalist; ATTEND Hospitalist
DX: E87.1 Hypo-osmolality and hyponatremia (principal); G93.41 Metabolic encephalopathy; N17.9 Acute kidney failure, unspecified; E87.6 Hypokalemia; E86.1 Hypovolemia; E83.39 Other disorders of phosphorus metabolism; F17.200 Nicotine dependence, unspecified, uncomplicated; F51.01 Primary insomnia; G25.81 Restless legs syndrome; I87.2 Venous insufficiency (chronic) (peripheral); J45.909 Unspecified asthma, uncomplicated; K21.9 Gastro-esophageal reflux disease without esophagitis; K44.9 Diaphragmatic hernia without obstruction or gangrene; M19.91 Primary osteoarthritis, unspecified site; Z79.1 Long term (current) use of non-steroidal anti-inflammatories (NSAID); Z79.82 Long term (current) use of aspirin; Z79.899 Other long term (current) drug therapy; Z80.8 Family history of malignant neoplasm of other organs or systems; Z86.73 Personal history of transient ischemic attack (TIA), and cerebral infarction without residual deficits; Z87.11 Personal history of peptic ulcer disease; Z90.710 Acquired absence of both cervix and uterus; Z96.652 Presence of left artificial knee joint; Z88.1 Allergy status to other antibiotic agents; Z88.5 Allergy status to narcotic agent; Z88.0 Allergy status to penicillin; Z88.7 Allergy status to serum and vaccine; R33.9 Retention of urine, unspecified
CPT/HCPCS: 36415; 70450; 71046; 80048; 80053; 81001; 83605; 83735; 83930; 83935; 84100; 84132; 84295; 84300; 84443; 84484; 84550; 85025; 85610; 85730; 87040; 87077; 87086; 87186; 93005; 94760; 96361; 96365; 99291

== ENCOUNTER 2018-11-15 07:35 | Emergency (ER) | payer MEDICARE ==
[2018-11-15] MEDS ORDERED: SODIUM CHLORIDE 0.9% 500 ML 500 ML IV STA (07:48)
[2018-11-15] MEDS ORDERED: LEVOFLOXACIN 750MG-D5W PMX 750 MG in DEXTROSE/WATER 1 150ML.BAG IVPB STA (08:00)
[2018-11-15 08:31] LABS: Basophils % (A) 0 %; Eosinophils # (A) 0.1 k/uL (0-0.7); Eosinophils % (A) 1 %; HCT 28.6 % (34.0-46.0); Lymphocytes # (A) 0.7 k/uL (1.0-4.8); Lymphocytes % (A) 8 %; MCH 27.7 pg (25.0-35.0); MCHC 31.5 g/dL (31.0-37.0); Mean Platelet Volume 6.5; Monocytes # (A) 0.3 k/uL (0-1.0); Monocytes % (A) 3 %; Neutrophils % (A) 89 %; Platelet Count 477 k/uL (150-450); RBC 3.26 m/uL (3.80-5.40); RDW 14.8 % (11.5-15.5); WBC 9.1 k/uL (3.8-10.6)
[2018-11-15 08:34] LABS: ALT 11 U/L (9-52); AST 15 U/L (14-36); African American GFR (CKD) >90 (>60 ml/min/1.73 sqM); Albumin 3.3 g/dL (3.5-5.0); Alkaline Phosphatase 107 U/L (38-126); Anion Gap 11 mmol/L; Blood Urea Nitrogen 13 mg/dL (7-17); Calcium 8.7 mg/dL (8.4-10.2); Carbon Dioxide 22 mmol/L (22-30); Chloride 94 mmol/L (98-107); Glucose 156 mg/dL (74-99); Partial Thromboplastin Time 24.9 sec (22.0-30.0); Potassium 3.5 mmol/L (3.5-5.1); Prothrombin Time 10.4 sec (9.0-12.0); Sodium 127 mmol/L (137-145); Total Bilirubin 0.3 mg/dL (0.2-1.3); Total Protein 5.9 g/dL (6.3-8.2)
[2018-11-15 08:35] LABS: MCV 87.7 fL (80.0-100.0)
--- NOTE | 2018-11-15 08:58 | XR ---
EXAMINATION TYPE: XR chest 2V DATE OF EXAM: 11/15/2018 HISTORY: Fever. REFERENCE: Previous study dated 09/06/2018. FINDINGS: The heart is mildly enlarged. There is some chronic parenchymal changes at the left lung ba se. Lungs are otherwise clear. Pleural spaces are clear. IMPRESSION: 1. MILD CARDIOMEGALY. 2. CHRONIC PARENCHYMAL CHANGE, LEFT LUNG BASE.
--- NOTE | 2018-11-15 09:00 | XR ---
EXAMINATION TYPE: XR KUB , 2 VIEWS DATE OF EXAM ORDERED: 11/15/2018 HISTORY: pain. COMPARISON: Previous study dated 12/05/2013. FINDINGS: The lung bases are clear. There is been extensive epigastric and left upper quadrant surgery. The abdominal gas pattern is within normal limits. There is no evidence of obstruction or free air. T here is a moderate stool burden. There is a moderate levoscoliosis. There are phleboliths within the pelvis. IMPRESSION: 1. NO ACUTE INTRA-ABDOMINAL ABNORMALITY. 2. CONSTIPATION. 3. MODERATE LEVOSCOLIOSIS.
[2018-11-15] MEDS ORDERED: SODIUM CHLORIDE 0.9% 1,000 ML IV STA (09:01)
[2018-11-15] MEDS ORDERED: SODIUM CHLORIDE 0.9% 500 ML IV STA (09:07)
--- NOTE | 2018-11-15 09:42 | ED ---
General Adult HPI <Sarkis Rubio - Last Filed: 11/15/18 10:36> - General Source: family, RN notes reviewed, old records reviewed Mode of arrival: wheelchair Limitations: no limitations <Samuel Black - Last Filed: 11/15/18 10:53> - General Chief complaint: Altered Mental Status Stated complaint: Wound under breast/confused Time Seen by Provider: 11/15/18 07:45 - History of Present Illness Initial comments: 83-year-old female patient comes to ED for evaluation of possible infection. Patient has past medical history significant for a perforated bowel on 10/11/18 which was repaired by Dr. Davis. Patient currently has a wound drain under her left breast region. Patient reports that for the last couple days the drainage has increased and appears to look like pus. Patient's daughter assists with caregiving. This morning when evaluating patient patient appeared disoriented, was confused. Denies any facial droop, falls, unilateral weakness. Upon presenting to Hospital patient is alert and oriented 3. Patient and daughter would like to ensure that the incision is not infected denies all other complaints at this time. Denies any pain, nausea vomiting or diarrhea. Systemic: Pt denies fatigue, fever/chills, rash. Pt denies weakness, night sweats, weight loss. Neuro: Pt denies headache, visual disturbances, syncope or pre-syncope. HEENT: Pt denies ocular discharge or irritation, otalgia, rhinorrhea, pharyngitis or notable lymphadenopathy. Cardiopulmonary: Pt denies chest pain, SOB, heart palpitations, dyspnea on exertion. Abdominal/GI: Pt denies abdominal pain, n/v/d. : Pt denies dysuria, burning w/ urination, frequency/urgency. Denies new onset urinary or bowel incontinence. MSK: Pt denies myalgia, loss of strength or function in extremities. Neuro: Pt denies new onset weakness, paresthesias. (Samuel Black) - Related Data Home Medications Medication Instructions Recorded Confirmed Melatonin 10 mg PO HS 10/15/13 11/15/18 Aspirin EC [Ecotrin Low Dose] 81 mg PO W/SUPPER 09/06/18 11/15/18 Furosemide [Lasix] 40 mg PO DAILY 09/06/18 11/15/18 Meloxicam 15 mg PO DAILY 09/06/18 11/15/18 Pramipexole [Mirapex] 0.5 mg PO BID 09/06/18 11/15/18 rOPINIRole HCL [Requip] 2 mg PO BID 09/06/18 11/15/18 Acetaminophen Tab [Tylenol Tab] 1,000 mg PO Q6HR PRN 11/15/18 11/15/18 Cholecalciferol [Vitamin D3 (25 1,000 unit PO HS 11/15/18 11/15/18 Mcg = 1000 Iu)] Ferrous Sulfate [Feosol] 325 mg PO DAILY 11/15/18 11/15/18 HYDROcodone/APAP 5-325MG [[place] 1 tab PO TID PRN 11/15/18 11/15/18 5-325] Potassium Chloride [Klor-Con 10] 10 meq PO BID 11/15/18 11/15/18 Previous Rx's Medication Instructions Recorded Levofloxacin [Levaquin] 750 mg PO DAILY 7 Days tab 11/15/18 Allergies Allergy/AdvReac Type Severity Reaction Status Date / Time erythromycin base AdvReac Unknown Verified 11/15/18 08:33 [Erythromycin Base] hydromorphone HCl AdvReac Itching Verified 11/15/18 08:33 [From Dilaudid] Penicillins AdvReac Rash/Hives Verified 11/15/18 08:33 flu vaccine Allergy Unknown Uncoded 09/06/18 19:10 Review of Systems ROS Other: All systems not noted in ROS Statement are negative. <Sarkis Rubio - Last Filed: 11/15/18 10:36> ROS Other: All systems not noted in ROS Statement are negative. <Samuel Black - Last Filed: 11/15/18 10:53> ROS Statement: Those systems with pertinent positive or pertinent negative responses have been documented in the HPI. Past Medical History Past Medical History: Asthma, Chest Pain / Angina, CVA/TIA, Deep Vein Thrombosis (DVT), GERD/Reflux Additional Past Medical History / Comment(s): hx ulcer, hiatal hernia. blood clot x 3 left leg, anemia, syncope,bruises easily; see Dr Velázquez's H&P History of Any Multi-Drug Resistant Organisms: None Reported Past Surgical History: Bladder Surgery, Section, Heart Catheterization, Hysterectomy, Joint Replacement Additional Past Surgical History / Comment(s): gastrectomy, stomach tumor removed, stomach stapling, surgery to reattach ureters, left knee replacement Past Anesthesia/Blood Transfusion Reactions: Motion Sickness Additional Past Anesthesia/Blood Transfusion Reaction / Comment(s): motion sickness in past Past Psychological History: No Psychological Hx Reported Smoking Status: Former smoker Past Alcohol Use History: Daily Past Drug Use History: None Reported - Past Family History Mother Family Medical History: Cancer Additional Family Medical History / Comment(s): "throat" CA <Samuel Black - Last Filed: 11/15/18 10:53> General Exam Limitations: no limitations <Samuel Black - Last Filed: 11/15/18 10:53> - General Exam Comments Initial Comments: Constitutional: NAD, AOX3, Pt has pleasant affect. HEENT: NC/AT, trachea midline, neck supple, no lymphadenopathy. Posterior pharynx non erythematous, without exudates. External ears appear normal, without discharge. Mucous membranes moist. Eyes PERRLA, EOM intact. There is no scleral icterus. No pallor noted. Cardiopulmonary: RRR, no murmurs, rubs or gallops, no JVD noted. Lungs CTAB in anterior and posterior rojas. +1 pitting edema bilaterally. Abdominal exam: Abdomen soft and non-distended. Abdomen non-tender to palpation in all 4 quadrants. Bowel sounds active in LLQ. No hepatosplenomegaly. No ecchymosis Neuro: CN II-XII intact. No nuchal rigidity. No raccon eyes, no meier sign, no hemotympanum. No cervical spinal tenderness. MSK: No posterior calf tenderness bilaterally, homans sign negative bilaterally. Posterior tibialis and radial pulse +2 bilaterally. Sensation intact in upper and lower extremities. Full active ROM in upper and lower extremities, 5/5 stregnth. Derm: Purulent drainage noted from incision under left breast, small amount of erythema around the incision, no streaking. (Samuel Black) Course Vital Signs 11/15/18 11/15/18 11/15/18 07:38 08:00 08:30 Temperature 97.4 F L Pulse Rate 84 Respiratory 18 18 17 Rate Blood Pressure 101/58 108/63 99/58 O2 Sat by Pulse 99 99 100 Oximetry 11/15/18 11/15/18 11/15/18 09:00 09:30 10:00 Temperature Pulse Rate 70 73 Respiratory 18 16 16 Rate Blood Pressure 112/70 107/62 120/66 O2 Sat by Pulse 98 95 99 Oximetry Medical Decision Making - Lab Data Result diagrams: 11/15/18 08:11 11/15/18 08:11 <Sarkis Rubio - Last Filed: 11/15/18 10:36> - Lab Data Result diagrams: 11/15/18 08:11 11/15/18 08:11 <Samuel Black - Last Filed: 11/15/18 10:53> - Medical Decision Making I spoke with Dr. davis and told Dr. davis she had a abscess in the abdominal wall he did not think she needed be admitted because she didn't have a white count and he did state that she had been draining from that area for quite a while. He wanted the patient sent home on antibiotics. (Sarkis Rubio) 83-year-old female patient comes to ED for evaluation of possible infection. Patient has past medical history significant for a perforated bowel on 10/11/18 which was repaired by Dr. Davis. Patient currently has a wound drain under her left breast region. Patient reports that for the last couple days the drainage has increased and appears to look like pus. Patient's daughter assists with caregiving. This morning when evaluating patient patient appeared disoriented, was confused. Denies any facial droop, falls, unilateral weakness. Upon presenting to Hospital patient is alert and oriented 3. Patient and daughter would like to ensure that the incision is not infected denies all other complaints at this time. Denies any pain, nausea vomiting or diarrhea. Patient vital signs stable, afebrile. Physical exam displayed: Purulent drainage noted from incision under left breast, small amount of erythema around the incision, no streaking. Laboratory investigations non-impressive. White blood cell count 9.1, lactic acid negative. UA negative. CT brain and C-spine displayed probable anterior abdominal wall abscess in left upper quadrant. These results were discussed with attending physician Dr. Rubio as well as patient surgeon Dr. Davis, recommendation by Dr. Davis was discharged patient on Levaquin and have them follow-up in the office on Saturday. Patient comfortable with this plan, return precautions discussed. (Samuel Black) - Lab Data Lab Results 11/15/18 11/15/18 11/15/18 Range/Units 08:11 08:11 08:11 WBC 9.1 (3.8-10.6) k/uL RBC 3.26 L (3.80-5.40) m/uL Hgb 9.0 L (11.4-16.0) gm/dL Hct 28.6 L (34.0-46.0) % MCV 87.7 D (80.0-100.0) fL MCH 27.7 (25.0-35.0) pg MCHC 31.5 (31.0-37.0) g/dL RDW 14.8 (11.5-15.5) % Plt Count 477 H (150-450) k/uL Neutrophils % 89 % Lymphocytes % 8 % Monocytes % 3 % Eosinophils % 1 % Basophils % 0 % Neutrophils # 8.0 H (1.3-7.7) k/uL Lymphocytes # 0.7 L (1.0-4.8) k/uL Monocytes # 0.3 (0-1.0) k/uL Eosinophils # 0.1 (0-0.7) k/uL Basophils # 0.0 (0-0.2) k/uL PT (9.0-12.0) sec INR (<1.2) APTT (22.0-30.0) sec Sodium 127 L (137-145) mmol/L Potassium 3.5 (3.5-5.1) mmol/L Chloride 94 L (98-107) mmol/L Carbon Dioxide 22 (22-30) mmol/L Anion Gap 11 mmol/L BUN 13 (7-17) mg/dL Creatinine 0.68 (0.52-1.04) mg/dL Est GFR (CKD-EPI)AfAm >90 (>60 ml/min/1.73 sqM) Est GFR (CKD-EPI)NonAf 80 (>60 ml/min/1.73 sqM) Glucose 156 H (74-99) mg/dL Plasma Lactic Acid Davin 1.8 (0.7-2.0) mmol/L Calcium 8.7 (8.4-10.2) mg/dL Total Bilirubin 0.3 (0.2-1.3) mg/dL AST 15 (14-36) U/L ALT 11 (9-52) U/L Alkaline Phosphatase 107 (38-126) U/L Troponin I (0.000-0.034) ng/mL Total Protein 5.9 L (6.3-8.2) g/dL Albumin 3.3 L (3.5-5.0) g/dL Urine Color Urine Appearance (Clear) Urine pH (5.0-8.0) Ur Specific [place] (1.001-1.035) Urine Protein (Negative) Urine Glucose (UA) (Negative) Urine Ketones (Negative) Urine Blood (Negative) Urine Nitrite (Negative) Urine Bilirubin (Negative) Urine Urobilinogen (<2.0) mg/dL Ur Leukocyte Esterase (Negative) Urine RBC (0-5) /hpf Urine WBC (0-5) /hpf Ur Squamous Epith Cells (0-4) /hpf Amorphous Sediment (None) /hpf Hyaline Casts (0-2) /lpf Urine Mucus (None) /hpf Urine Yeast (Budding) (None) /hpf 11/15/18 11/15/18 11/15/18 Range/Units 08:11 08:11 09:40 WBC (3.8-10.6) k/uL RBC (3.80-5.40) m/uL Hgb (11.4-16.0) gm/dL Hct (34.0-46.0) % MCV (80.0-100.0) fL MCH (25.0-35.0) pg MCHC (31.0-37.0) g/dL RDW (11.5-15.5) % Plt Count (150-450) k/uL Neutrophils % % Lymphocytes % % Monocytes % % Eosinophils % % Basophils % % Neutrophils # (1.3-7.7) k/uL Lymphocytes # (1.0-4.8) k/uL Monocytes # (0-1.0) k/uL Eosinophils # (0-0.7) k/uL Basophils # (0-0.2) k/uL PT 10.4 (9.0-12.0) sec INR 1.0 (<1.2) APTT 24.9 (22.0-30.0) sec Sodium (137-145) mmol/L Potassium (3.5-5.1) mmol/L Chloride (98-107) mmol/L Carbon Dioxide (22-30) mmol/L Anion Gap mmol/L BUN (7-17) mg/dL Creatinine (0.52-1.04) mg/dL Est GFR (CKD-EPI)AfAm (>60 ml/min/1.73 sqM) Est GFR (CKD-EPI)NonAf (>60 ml/min/1.73 sqM) Glucose (74-99) mg/dL Plasma Lactic Acid Davin (0.7-2.0) mmol/L Calcium (8.4-10.2) mg/dL Total Bilirubin (0.2-1.3) mg/dL AST (14-36) U/L ALT (9-52) U/L Alkaline Phosphatase (38-126) U/L Troponin I <0.012 (0.000-0.034) ng/mL Total Protein (6.3-8.2) g/dL Albumin (3.5-5.0) g/dL Urine Color Yellow Urine Appearance Clear (Clear) Urine pH 5.5 (5.0-8.0) Ur Specific [place] 1.012 (1.001-1.035) Urine Protein Negative (Negative) Urine Glucose (UA) Negative (Negative) Urine Ketones Negative (Negative) Urine Blood Negative (Negative) Urine Nitrite Negative (Negative) Urine Bilirubin Negative (Negative) Urine Urobilinogen <2.0 (<2.0) mg/dL Ur Leukocyte Esterase Small H (Negative) Urine RBC 4 (0-5) /hpf Urine WBC 3 (0-5) /hpf Ur Squamous Epith Cells 1 (0-4) /hpf Amorphous Sediment Rare H (None) /hpf Hyaline Casts 3 H (0-2) /lpf Urine Mucus Rare H (None) /hpf Urine Yeast (Budding) Few H (None) /hpf Disposition <Sarkis Rubio - Last Filed: 11/15/18 10:36> Is patient prescribed a controlled substance at d/c from ED?: No <Samuel Black - Last Filed: 11/15/18 10:53> Clinical Impression: Abscess Disposition: HOME SELF-CARE Condition: Stable Instructions (If sedation given, give patient instructions): Abscess (ED) Additional Instructions: Patient to adhere to previously discussed treatment plan and will take medication(s) as directed. Patient to follow up with PCP in 1-2 days. Patient to return to ED if symptoms do not improve. Take medication as directed. Follow-up with Dr. davis first thing on Saturday, return to ER immediately if condition worsens in any way. Prescriptions: Levofloxacin [Levaquin] 750 mg PO DAILY 7 Days tab Referrals: Jack Manley DO [Primary Care Provider] - 1-2 days Jeet Davis DO [Doctor of Osteopathic Medicine] - 1-2 days
[2018-11-15 10:02] LABS: Amorphous Sediment,Urine Rare /hpf; Appearance,Urine Clear (Clear); Bilirubin,Urine Negative (Negative); Blood,Urine Negative (Negative); Budding Yeast,Urine Few /hpf; Color,Urine Yellow; Glucose,Urine (UA) Negative (Negative); Hyaline Casts,Urine 3 /lpf (0-2); Ketones,Urine Negative (Negative); Leukocyte Esterase,Urine Small (Negative); Mucus,Urine Rare /hpf; Nitrite,Urine Negative (Negative); PH, Urine 5.5 (5.0-8.0); Protein,Urine Negative (Negative); RBC,Urine 4 /hpf (0-5); Specific Gravity,Urine 1.012 (1.001-1.035); Squamous Epithelial Cell,Urine 1 /hpf (0-4); Urobilinogen,Urine <2.0 mg/dL (<2.0); WBC,Urine 3 /hpf (0-5)
--- NOTE | 2018-11-15 10:27 | CT ---
EXAMINATION TYPE: CT abdomen pelvis w con DATE OF EXAM: 11/15/2018 REFERENCE: Previous study dated 10/23/2013. HISTORY: Pain HISTORY: Left upper quarant pain, next to stomach REFERENCE: NONE CT DLP: 839.1 mGy Automated exposure control for dose reduction was used. TECHNIQUE: Helical acquisition through the abdomen and pelvis was obtained following the oral ingesti on of without Oral Contrast and following intravenous administration of 100 mL of Isovue 300. The luis angel a was reformatted in axial, coronal and sagittal projections. FINDINGS: There is a 1.4 cm pleural-based density in the superior segment of the right lower lobe be st seen on image 1. This may represent some atelectatic change or pleural thickening. It was not pres ent previously. Visualized portions of the lungs are otherwise unremarkable. There is no pleural or p ericardial fluid. The heart is mildly enlarged. There is evidence of previous gastric stapling. There is a partial eventration of the right hemidiaph ragm. The liver, spleen and gallbladder appear unremarkable. There is stable prominence of the left adrenal gland without a definite adrenal mass. There is a stable, simple appearing 2.8 cm cyst in the upper pole of the right kidney. The left kidne y is unremarkable. The pancreas is poorly visualized. There is no significant retroperitoneal, iliac or inguinal adenopathy. The bladder is unremarkable. The uterus and ovaries are not visualized. There is no significant diverticular change and I do not see radiographic evidence of diverticulitis. The appendix is not visualized. There is been a previous small bowel resection. Adjacent to this there is induration within the skin and of the anterior abdominal wall and there are gas bubbles within this induration suggesting a left upper quadrant abscess. This does not extend intraperitoneally. There is no free fluid and no free a ir. There is degenerative disc disease and facet arthropathy and hypertrophic spondylosis throughout the lumbar spine. There is a degenerative grade 1 spondylolisthesis of L5 on S1. IMPRESSION: 1. PROBABLE ANTERIOR ABDOMINAL WALL ABSCESS IN THE LEFT UPPER QUADRANT. 2. MILD CARDIOMEGALY. 3. POSTSURGICAL CHANGE. 4. SIMPLE APPEARING RIGHT RENAL CYST. 5. DEGENERATIVE CHANGES WITHIN THE SPINE.
[2018-11-15 11:27] VITALS: BP 100/61; PULSE 67; RESP 18; TEMP 98.9
== END 2018-11-15 11:27 | disposition home or self-care (01) ==
LOC: EC 07:35
DX: L02.211 Cutaneous abscess of abdominal wall (principal); R41.82 Altered mental status, unspecified; D64.9 Anemia, unspecified; Z86.73 Personal history of transient ischemic attack (TIA), and cerebral infarction without residual deficits; Z95.818 Presence of other cardiac implants and grafts; Z96.652 Presence of left artificial knee joint; Z87.891 Personal history of nicotine dependence; Z53.8 Procedure and treatment not carried out for other reasons; Z98.890 Other specified postprocedural states; Z79.82 Long term (current) use of aspirin; Z79.1 Long term (current) use of non-steroidal anti-inflammatories (NSAID); Z79.899 Other long term (current) drug therapy; Z88.1 Allergy status to other antibiotic agents; Z88.5 Allergy status to narcotic agent; Z88.0 Allergy status to penicillin; Z88.7 Allergy status to serum and vaccine
CPT/HCPCS: 36415; 93005; 80053; 83605; 84484; 85025; 85610; 85730; 81001; 87040; 87070; 87086; 87205; 87077; 87186; 71046; 74018; 74177; 99285; 96365; 96366; J1956; Q9967

== ENCOUNTER 2018-11-20 11:05 | Emergency (ER) | payer MEDICARE ==
[2018-11-20 11:13] VITALS: RESP 18
[2018-11-20] MEDS ORDERED: SODIUM CHLORIDE 0.9% 1,000 ML IV STA ×2 (11:46)
[2018-11-20] MEDS ORDERED: PANTOPRAZOLE 40 MG/10 ML VIAL IVP STA (11:46)
[2018-11-20] MEDS ORDERED: ONDANSETRON 4 MG/2 ML VIAL IVP STA (11:46)
[2018-11-20] MEDS ORDERED: MORPHINE SULFATE 4 MG/ML SYRINGE IV STA (11:46)
[2018-11-20 12:23] LABS: Basophils % (A) 0 %; Eosinophils # (A) 0.1 k/uL (0-0.7); Eosinophils % (A) 2 %; HCT 31.1 % (34.0-46.0); HGB 9.9 gm/dL (11.4-16.0); Lymphocytes # (A) 0.9 k/uL (1.0-4.8); Lymphocytes % (A) 15 %; MCH 27.8 pg (25.0-35.0); MCV 86.8 fL (80.0-100.0); Mean Platelet Volume 6.5; Monocytes # (A) 0.2 k/uL (0-1.0); Monocytes % (A) 3 %; Neutrophils # (A) 4.9 k/uL (1.3-7.7); Neutrophils % (A) 79 %; Platelet Count 552 k/uL (150-450); RBC 3.58 m/uL (3.80-5.40); RDW 14.6 % (11.5-15.5); WBC 6.2 k/uL (3.8-10.6)
[2018-11-20 12:29] LABS: Albumin 3.6 g/dL (3.5-5.0); Potassium 3.4 mmol/L (3.5-5.1); Total Bilirubin 0.6 mg/dL (0.2-1.3); Total Protein 6.4 g/dL (6.3-8.2)
--- NOTE | 2018-11-20 13:22 | ED ---
Abdominal Pain HPI - General Chief Complaint: Abdominal Pain Stated Complaint: Diarrhea Time Seen by Provider: 11/20/18 11:21 Source: EMS, RN notes reviewed, old records reviewed Mode of arrival: EMS Limitations: physical limitation - History of Present Illness Initial Comments: This is a 3-year-old female the ER for evaluation. Patient resents today for evaluation regarding weakness, UTI, 5 diarrheal episodes today possible C. diff. Dehydration. Abdominal pain back pain leg pain. Patient is very weak here in the ER with difficulty hearing history is obtained from EMS and patient's family. Patient was seen by [facility] earlier today and sent to ER for evaluation MD Complaint: abdominal pain -: days(s) Location: diffuse Radiation: none Migration to: no migration Severity: mild Severity scale (1-10): 3 Quality: cramping, stabbing, aching Consistency: constant Improves With: nothing Worsens With: nothing Context: recent surgery/procedure Associated Symptoms: denies other symptoms - Related Data Home Medications Medication Instructions Recorded Confirmed Melatonin 10 mg PO HS 10/15/13 11/20/18 Aspirin EC [Ecotrin Low Dose] 81 mg PO W/SUPPER 09/06/18 11/20/18 Furosemide [Lasix] 40 mg PO DAILY 09/06/18 11/20/18 Meloxicam 15 mg PO DAILY 09/06/18 11/20/18 Pramipexole [Mirapex] 0.5 mg PO BID 09/06/18 11/20/18 rOPINIRole HCL [Requip] 2 mg PO BID 09/06/18 11/20/18 Cholecalciferol [Vitamin D3 (25 1,000 unit PO HS 11/15/18 11/20/18 Mcg = 1000 Iu)] Ferrous Sulfate [Feosol] 325 mg PO DAILY 11/15/18 11/20/18 HYDROcodone/APAP 5-325MG [Vernalis 1 tab PO TID PRN 11/15/18 11/20/18 5-325] Potassium Chloride [Klor-Con 10] 10 meq PO BID 11/15/18 11/20/18 Fluconazole [Diflucan] 150 mg PO DIRECTED 11/20/18 11/20/18 Previous Rx's Medication Instructions Recorded Levofloxacin [Levaquin] 750 mg PO DAILY 7 Days tab 11/15/18 Allergies Allergy/AdvReac Type Severity Reaction Status Date / Time hydromorphone HCl Allergy Itching Verified 11/20/18 11:47 [From Dilaudid] Penicillins Allergy Rash/Hives Verified 11/20/18 11:47 erythromycin base AdvReac Unknown Verified 11/20/18 11:47 [Erythromycin Base] flu vaccine Allergy Unknown Uncoded 11/20/18 11:47 Review of Systems ROS Statement: Those systems with pertinent positive or pertinent negative responses have been documented in the HPI. ROS Other: All systems not noted in ROS Statement are negative. Past Medical History Past Medical History: Asthma, Chest Pain / Angina, Heart Failure, CVA/TIA, Deep Vein Thrombosis (DVT), GERD/Reflux Additional Past Medical History / Comment(s): hx ulcer, hiatal hernia. blood clot x 3 left leg, anemia, syncope,bruises easily; see Dr Velázquez's H&P History of Any Multi-Drug Resistant Organisms: None Reported Past Surgical History: Bladder Surgery, Section, Heart Catheterization, Hysterectomy, Joint Replacement Additional Past Surgical History / Comment(s): gastrectomy, stomach tumor removed, stomach stapling, surgery to reattach ureters, left knee replacement Past Anesthesia/Blood Transfusion Reactions: Motion Sickness Additional Past Anesthesia/Blood Transfusion Reaction / Comment(s): motion sickness in past Past Psychological History: No Psychological Hx Reported Smoking Status: Former smoker Past Alcohol Use History: Daily Past Drug Use History: None Reported - Past Family History Mother Family Medical History: Cancer Additional Family Medical History / Comment(s): "throat" [place] General Exam Limitations: physical limitation General appearance: alert, in no apparent distress Head exam: Present: atraumatic, normocephalic, normal inspection Eye exam: Present: normal appearance, PERRL, EOMI. Absent: scleral icterus, conjunctival injection, periorbital swelling ENT exam: Present: normal exam, mucous membranes moist Neck exam: Present: normal inspection. Absent: tenderness, meningismus, lymphadenopathy Respiratory exam: Present: normal lung sounds bilaterally. Absent: respiratory distress, wheezes, rales, rhonchi, stridor Cardiovascular Exam: Present: regular rate, normal rhythm, normal heart sounds. Absent: systolic murmur, diastolic murmur, rubs, gallop, clicks GI/Abdominal exam: Present: soft, normal bowel sounds. Absent: distended, tenderness, guarding, rebound, rigid Extremities exam: Present: normal inspection, full ROM, normal capillary refill. Absent: tenderness, pedal edema, joint swelling, calf tenderness Back exam: Present: normal inspection Neurological exam: Present: alert, oriented X3, CN II-XII intact Psychiatric exam: Present: normal affect, normal mood Skin exam: Present: warm, dry, intact, normal color. Absent: rash Course Vital Signs 11/20/18 11/20/18 11/20/18 11:07 12:29 14:05 Temperature 97.8 F Pulse Rate 74 72 78 Respiratory 18 18 18 Rate Blood Pressure 128/86 111/74 111/76 O2 Sat by Pulse 100 99 99 Oximetry - Reevaluation(s) Reevaluation #1: 11/20/18 15:30 Medical record is reviewed Reevaluation #2: 11/20/18 15:30 The patient is in no acute distress no diarrhea here in the ER Medical Decision Making - Medical Decision Making 83 female the ER for evaluation. Patient was sent to the ED for evaluation of diarrhea and evaluation of pain. - Lab Data Result diagrams: 11/20/18 12:12 11/20/18 12:12 Lab Results 11/20/18 11/20/18 11/20/18 Range/Units 12:12 12:12 12:12 WBC 6.2 (3.8-10.6) k/uL RBC 3.58 L (3.80-5.40) m/uL Hgb 9.9 L (11.4-16.0) gm/dL Hct 31.1 L (34.0-46.0) % MCV 86.8 (80.0-100.0) fL MCH 27.8 (25.0-35.0) pg MCHC 32.0 (31.0-37.0) g/dL RDW 14.6 (11.5-15.5) % Plt Count 552 H (150-450) k/uL Neutrophils % 79 % Lymphocytes % 15 % Monocytes % 3 % Eosinophils % 2 % Basophils % 0 % Neutrophils # 4.9 (1.3-7.7) k/uL Lymphocytes # 0.9 L (1.0-4.8) k/uL Monocytes # 0.2 (0-1.0) k/uL Eosinophils # 0.1 (0-0.7) k/uL Basophils # 0.0 (0-0.2) k/uL Sodium 130 L (137-145) mmol/L Potassium 3.4 L (3.5-5.1) mmol/L Chloride 96 L (98-107) mmol/L Carbon Dioxide 23 (22-30) mmol/L Anion Gap 11 mmol/L BUN 12 (7-17) mg/dL Creatinine 1.09 H (0.52-1.04) mg/dL Est GFR (CKD-EPI)AfAm 54 (>60 ml/min/1.73 sqM) Est GFR (CKD-EPI)NonAf 47 (>60 ml/min/1.73 sqM) Glucose 93 (74-99) mg/dL Plasma Lactic Acid Davin 1.1 (0.7-2.0) mmol/L Calcium 9.0 (8.4-10.2) mg/dL Total Bilirubin 0.6 (0.2-1.3) mg/dL AST 22 (14-36) U/L ALT 20 (9-52) U/L Alkaline Phosphatase 92 (38-126) U/L Creatine Kinase 81 (30-135) U/L Total Protein 6.4 (6.3-8.2) g/dL Albumin 3.6 (3.5-5.0) g/dL Amylase 42 (30-110) U/L Lipase 15 L (23-300) U/L Urine Color Urine Appearance (Clear) Urine pH (5.0-8.0) Ur Specific [place] (1.001-1.035) Urine Protein (Negative) Urine Glucose (UA) (Negative) Urine Ketones (Negative) Urine Blood (Negative) Urine Nitrite (Negative) Urine Bilirubin (Negative) Urine Urobilinogen (<2.0) mg/dL Ur Leukocyte Esterase (Negative) Urine RBC (0-5) /hpf Urine WBC (0-5) /hpf Urine Bacteria (None) /hpf Urine Mucus (None) /hpf 11/20/18 Range/Units 13:07 WBC (3.8-10.6) k/uL RBC (3.80-5.40) m/uL Hgb (11.4-16.0) gm/dL Hct (34.0-46.0) % MCV (80.0-100.0) fL MCH (25.0-35.0) pg MCHC (31.0-37.0) g/dL RDW (11.5-15.5) % Plt Count (150-450) k/uL Neutrophils % % Lymphocytes % % Monocytes % % Eosinophils % % Basophils % % Neutrophils # (1.3-7.7) k/uL Lymphocytes # (1.0-4.8) k/uL Monocytes # (0-1.0) k/uL Eosinophils # (0-0.7) k/uL Basophils # (0-0.2) k/uL Sodium (137-145) mmol/L Potassium (3.5-5.1) mmol/L Chloride (98-107) mmol/L Carbon Dioxide (22-30) mmol/L Anion Gap mmol/L BUN (7-17) mg/dL Creatinine (0.52-1.04) mg/dL Est GFR (CKD-EPI)AfAm (>60 ml/min/1.73 sqM) Est GFR (CKD-EPI)NonAf (>60 ml/min/1.73 sqM) Glucose (74-99) mg/dL Plasma Lactic Acid Davin (0.7-2.0) mmol/L Calcium (8.4-10.2) mg/dL Total Bilirubin (0.2-1.3) mg/dL AST (14-36) U/L ALT (9-52) U/L Alkaline Phosphatase (38-126) U/L Creatine Kinase (30-135) U/L Total Protein (6.3-8.2) g/dL Albumin (3.5-5.0) g/dL Amylase (30-110) U/L Lipase (23-300) U/L Urine Color Light Yellow Urine Appearance Clear (Clear) Urine pH 5.5 (5.0-8.0) Ur Specific [place] 1.009 (1.001-1.035) Urine Protein Negative (Negative) Urine Glucose (UA) Negative (Negative) Urine Ketones Negative (Negative) Urine Blood Negative (Negative) Urine Nitrite Negative (Negative) Urine Bilirubin Negative (Negative) Urine Urobilinogen <2.0 (<2.0) mg/dL Ur Leukocyte Esterase Trace H (Negative) Urine RBC 1 (0-5) /hpf Urine WBC 2 (0-5) /hpf Urine Bacteria Rare H (None) /hpf Urine Mucus Rare H (None) /hpf - Radiology Data Radiology results: report reviewed (XR aas - negative for acute disease), image reviewed Disposition Clinical Impression: Abdominal pain Disposition: HOME SELF-CARE Condition: Good Instructions (If sedation given, give patient instructions): Abdominal Pain (ED) Is patient prescribed a controlled substance at d/c from ED?: No Referrals: Jack Manley DO [Primary Care Provider] - 1-2 days
[2018-11-20 13:37] LABS: Appearance,Urine Clear (Clear); Bacteria,Urine Rare /hpf; Bilirubin,Urine Negative (Negative); Blood,Urine Negative (Negative); Color,Urine Light Yellow; Glucose,Urine (UA) Negative (Negative); Ketones,Urine Negative (Negative); Leukocyte Esterase,Urine Trace (Negative); Mucus,Urine Rare /hpf; Nitrite,Urine Negative (Negative); PH, Urine 5.5 (5.0-8.0); Protein,Urine Negative (Negative); RBC,Urine 1 /hpf (0-5); Specific Gravity,Urine 1.009 (1.001-1.035); Urobilinogen,Urine <2.0 mg/dL (<2.0); WBC,Urine 2 /hpf (0-5)
--- NOTE | 2018-11-20 14:29 | XR ---
EXAMINATION TYPE: XR abdomen acute w cxr DATE OF EXAM: 11/20/2018 CLINICAL HISTORY: Left-sided pain and diarrhea. TECHNIQUE: Single frontal view of chest is obtained. Supine and upright views of the abdomen are acq uired. COMPARISON: Chest x-ray, acute abdominal series, and CT from 5 days ago. FINDINGS: Some chronic parenchymal changes present bilaterally with patchy left basilar opacity. Righ t lung is clear. Cardiac silhouette size appears mildly enlarged with atherosclerotic and ectatic ao rta. Osseous structures are demineralized. Surgical sutures and clips at epigastric region are seen. There is overall nonobstructive bowel gas p attern. Sutures overlie the right pelvis. Levoconvex scoliosis centered upper to mid lumbar spine red emonstrated. No pneumoperitoneum. IMPRESSION: 1. Mild cardiomegaly and chronic parenchymal changes with new acute left basilar acute infiltrate and /or atelectasis. 2. Overall nonobstructive bowel gas pattern.
[2018-11-20 15:46] VITALS: BP 120/61; PULSE 86; TEMP 98.6
== END 2018-11-20 15:46 | disposition home or self-care (01) ==
LOC: EC 11:05
DX: R10.84 Generalized abdominal pain (principal); R19.7 Diarrhea, unspecified; R53.1 Weakness; H91.90 Unspecified hearing loss, unspecified ear; M54.9 Dorsalgia, unspecified; M79.606 Pain in leg, unspecified; I20.9 Angina pectoris, unspecified; I50.9 Heart failure, unspecified; D64.9 Anemia, unspecified; Z87.891 Personal history of nicotine dependence; Z88.0 Allergy status to penicillin; Z88.1 Allergy status to other antibiotic agents; Z88.5 Allergy status to narcotic agent; Z88.7 Allergy status to serum and vaccine; Z79.1 Long term (current) use of non-steroidal anti-inflammatories (NSAID); Z79.82 Long term (current) use of aspirin; Z79.899 Other long term (current) drug therapy; Z86.73 Personal history of transient ischemic attack (TIA), and cerebral infarction without residual deficits; Z96.652 Presence of left artificial knee joint; Z90.49 Acquired absence of other specified parts of digestive tract; Z98.890 Other specified postprocedural states; Z87.19 Personal history of other diseases of the digestive system; Z53.8 Procedure and treatment not carried out for other reasons
CPT/HCPCS: 36415; 80053; 82150; 82550; 83605; 83690; 85025; 81001; 87086; 74022; 99284; 96374; 96375 ×2; J2270; J2405; C9113

== ENCOUNTER 2018-11-23 06:47 | Inpatient (IN) | payer MEDICARE ==
[2018-11-23] MEDS ORDERED: SODIUM CHLORIDE 0.9% 1,000 ML IV ONE ×2 (07:18→12:15)
[2018-11-23] MEDS ORDERED: MORPHINE SULFATE 4 MG/ML SYRINGE IVP STA ×2 (07:20→10:26)
--- NOTE | 2018-11-23 07:22 | ED ---
Fall HPI - General Chief Complaint: Fall Stated Complaint: Fall Time Seen by Provider: 11/23/18 07:09 Source: patient, EMS, RN notes reviewed, old records reviewed Mode of arrival: EMS - History of Present Illness Initial Comments: Patient is an 83-year-old female with, [place] medical history. She presents today after falling off of her couch. She reports that she landed on her left leg at 2 in the morning. She is crawling around her house that she was unable to stand up and bear weight. Patient reports that she had a history of a bowel perforation as well as repaired by Dr. locke in September of this past year. She is currently being treated for a abdominal wound. She finished Levaquin yesterday for concern for an abscess. Patient has home health coming to change the dressing every few days. Patient has had some recent diarrhea and is evaluated few days ago for concern for C. diff. Patient was then discharged home in stable condition. Patient's daughter reports that she has been ambulating well and otherwise been doing well over the past few days since her last ER visit. Patient reports she sleeps on her couch as she is uncomfortable in her own bed. - Related Data Home Medications Medication Instructions Recorded Confirmed Aspirin EC [Ecotrin Low Dose] 81 mg PO HS 09/06/18 11/23/18 Furosemide [Lasix] 40 mg PO DAILY 09/06/18 11/23/18 Meloxicam 15 mg PO DAILY 09/06/18 11/23/18 rOPINIRole HCL [Requip] 2 mg PO BID 09/06/18 11/23/18 Cholecalciferol [Vitamin D3 (25 1,000 unit PO HS 11/15/18 11/23/18 Mcg = 1000 Iu)] Potassium Chloride [Klor-Con 10] 10 meq PO BID 11/15/18 11/23/18 Acetaminophen [Tylenol Extra 1,000 mg PO TID PRN 11/23/18 11/23/18 Strength] Metolazone [Zaroxolyn] 5 mg PO DAILY 11/23/18 11/23/18 Allergies Allergy/AdvReac Type Severity Reaction Status Date / Time hydromorphone HCl Allergy Itching Verified 11/23/18 08:12 [From Dilaudid] Penicillins Allergy Rash/Hives Verified 11/23/18 08:12 erythromycin base AdvReac Unknown Verified 11/23/18 08:12 [Erythromycin Base] flu vaccine Allergy Unknown Uncoded 11/23/18 07:03 Review of Systems ROS Statement: Those systems with pertinent positive or pertinent negative responses have been documented in the HPI. ROS Other: All systems not noted in ROS Statement are negative. Past Medical History Past Medical History: Asthma, Chest Pain / Angina, Heart Failure, CVA/TIA, Deep Vein Thrombosis (DVT), GERD/Reflux Additional Past Medical History / Comment(s): hx ulcer, hiatal hernia. blood clot x 3 left leg, anemia, syncope,bruises easily; see Dr Velázquez's H&P History of Any Multi-Drug Resistant Organisms: None Reported Past Surgical History: Bladder Surgery, Section, Heart Catheterization, Hysterectomy, Joint Replacement Additional Past Surgical History / Comment(s): gastrectomy, stomach tumor removed, stomach stapling, surgery to reattach ureters, left knee replacement Past Anesthesia/Blood Transfusion Reactions: Motion Sickness Additional Past Anesthesia/Blood Transfusion Reaction / Comment(s): motion sickness in past Past Psychological History: No Psychological Hx Reported Smoking Status: Former smoker Past Alcohol Use History: None Reported Past Drug Use History: None Reported - Past Family History Mother Family Medical History: Cancer Additional Family Medical History / Comment(s): "throat" [place] General Exam - General Exam Comments Initial Comments: 83-year-old female. Alert and oriented 3. Patient is resting comfortably in bed. No significant distress at this time. Limitations: no limitations General appearance: alert, in no apparent distress Head exam: Present: atraumatic, normocephalic, normal inspection Eye exam: Present: normal appearance, PERRL, EOMI. Absent: scleral icterus, conjunctival injection, periorbital swelling ENT exam: Present: normal exam, normal oropharynx, mucous membranes moist Neck exam: Present: normal inspection. Absent: tenderness, meningismus, lym phadenopathy Respiratory exam: Present: normal lung sounds bilaterally. Absent: respiratory distress, wheezes, rales, rhonchi, stridor Cardiovascular Exam: Present: regular rate GI/Abdominal exam: Present: soft, normal bowel sounds, other (Patient has an open draining wound underneath her left breast. Packed with iodoform.). Absent: distended, tenderness, guarding, rebound, rigid Extremities exam: Present: normal inspection, full ROM, normal capillary refill. Absent: tenderness, pedal edema, joint swelling, calf tenderness Left Hip exam: Present: shortening. Absent: normal inspection Lower Leg exam: Present: full ROM, erythema (Patient has some erythema over the distal tib-fib and ankle.). Absent: normal inspection Ankle exam: Present: normal inspection, full ROM Foot/Toe exam: Present: normal inspection, full ROM Neurovascular tendon exam: Present: no vascular compromise Back exam: Present: normal inspection Neurological exam: Present: alert, oriented X3, CN II-XII intact Psychiatric exam: Present: normal affect, normal mood Skin exam: Present: warm, dry, intact, normal color. Absent: rash Course Vital Signs 11/23/18 11/23/18 11/23/18 06:58 08:30 09:32 Temperature 97.7 F Pulse Rate 74 71 72 Respiratory 18 18 18 Rate Blood Pressure 96/62 114/70 105/68 O2 Sat by Pulse 100 96 98 Oximetry 11/23/18 10:45 Temperature 97.6 F Pulse Rate 74 Respiratory 18 Rate Blood Pressure 94/55 O2 Sat by Pulse 100 Oximetry - Reevaluation(s) Reevaluation #1: 11/23/18 12:12 Identity ambulate Patient and Patient would not appear weight over the left leg. Medical Decision Making - Medical Decision Making 83-year-old female presents after falling off her couch complaining of left leg pain. Patient has some swelling and erythema over the left lower extremity. He reports for the past 2 days concern for possible cellulitis. She's been treated for abdominal wall infection with Levaquin and finished this today. At this time patient's labwork was reviewed. Patient x-rays of the hip and tib-fib are negative for fracture. With the Patient continued and the unable to ambulate CT of the hip was ordered which shows no fracture. Patient was started on her concern for left lower extremity cellulitis. Ultrasound also completed to rule out DVT. Patient's daughter reports she is unable take care of her at home with inability to ambulate. Patient will be admitted at this time with consults to or if the for left leg pain and inability to ambulate, as well as Dr. locke patient's surgeon for her chronic abdominal wound. - Lab Data Result diagrams: 11/23/18 07:39 11/23/18 07:39 Lab Results 11/23/18 11/23/1819 Range/Units 07:39 07:39 07:39 WBC 9.8 (3.8-10.6) k/uL RBC 3.09 L (3.80-5.40) m/uL Hgb 8.5 L (11.4-16.0) gm/dL Hct 26.4 L (34.0-46.0) % MCV 85.3 (80.0-100.0) fL MCH 27.5 (25.0-35.0) pg MCHC 32.2 (31.0-37.0) g/dL RDW 14.5 (11.5-15.5) % Plt Count 455 H (150-450) k/uL Neutrophils % 85 % Lymphocytes % 9 % Monocytes % 4 % Eosinophils % 0 % Basophils % 0 % Neutrophils # 8.4 H (1.3-7.7) k/uL Lymphocytes # 0.9 L (1.0-4.8) k/uL Monocytes # 0.4 (0-1.0) k/uL Eosinophils # 0.0 (0-0.7) k/uL Basophils # 0.0 (0-0.2) k/uL PT 12.8 H (9.0-12.0) sec INR 1.2 H (<1.2) APTT 28.1 (22.0-30.0) sec Sodium 128 L (137-145) mmol/L Potassium 3.3 L (3.5-5.1) mmol/L Chloride 98 (98-107) mmol/L Carbon Dioxide 22 (22-30) mmol/L Anion Gap 8 mmol/L BUN 12 (7-17) mg/dL Creatinine 1.15 H (0.52-1.04) mg/dL Est GFR (CKD-EPI)AfAm 50 (>60 ml/min/1.73 sqM) Est GFR (CKD-EPI)NonAf 44 (>60 ml/min/1.73 sqM) Glucose 105 H (74-99) mg/dL Calcium 8.4 (8.4-10.2) mg/dL Total Bilirubin 0.5 (0.2-1.3) mg/dL AST 48 H (14-36) U/L ALT 28 (9-52) U/L Alkaline Phosphatase 69 (38-126) U/L Total Protein 5.0 L (6.3-8.2) g/dL Albumin 2.7 L (3.5-5.0) g/dL Urine Color Urine Appearance (Clear) Urine pH (5.0-8.0) Ur Specific [place] (1.001-1.035) Urine Protein (Negative) Urine Glucose (UA) (Negative) Urine Ketones (Negative) Urine Blood (Negative) Urine Nitrite (Negative) Urine Bilirubin (Negative) Urine Urobilinogen (<2.0) mg/dL Ur Leukocyte Esterase (Negative) Urine RBC (0-5) /hpf Urine WBC (0-5) /hpf Amorphous Sediment (None) /hpf Urine Bacteria (None) /hpf Hyaline Casts (0-2) /lpf 11/23/18 Range/Units 08:00 WBC (3.8-10.6) k/uL RBC (3.80-5.40) m/uL Hgb (11.4-16.0) gm/dL Hct (34.0-46.0) % MCV (80.0-100.0) fL MCH (25.0-35.0) pg MCHC (31.0-37.0) g/dL RDW (11.5-15.5) % Plt Count (150-450) k/uL Neutrophils % % Lymphocytes % % Monocytes % % Eosinophils % % Basophils % % Neutrophils # (1.3-7.7) k/uL Lymphocytes # (1.0-4.8) k/uL Monocytes # (0-1.0) k/uL Eosinophils # (0-0.7) k/uL Basophils # (0-0.2) k/uL PT (9.0-12.0) sec INR (<1.2) APTT (22.0-30.0) sec Sodium (137-145) mmol/L Potassium (3.5-5.1) mmol/L Chloride (98-107) mmol/L Carbon Dioxide (22-30) mmol/L Anion Gap mmol/L BUN (7-17) mg/dL Creatinine (0.52-1.04) mg/dL Est GFR (CKD-EPI)AfAm (>60 ml/min/1.73 sqM) Est GFR (CKD-EPI)NonAf (>60 ml/min/1.73 sqM) Glucose (74-99) mg/dL Calcium (8.4-10.2) mg/dL Total Bilirubin (0.2-1.3) mg/dL AST (14-36) U/L ALT (9-52) U/L Alkaline Phosphatase (38-126) U/L Total Protein (6.3-8.2) g/dL Albumin (3.5-5.0) g/dL Urine Color Yellow Urine Appearance Clear (Clear) Urine pH 5.5 (5.0-8.0) Ur Specific [place] 1.007 (1.001-1.035) Urine Protein Negative (Negative) Urine Glucose (UA) Negative (Negative) Urine Ketones Trace H (Negative) Urine Blood Negative (Negative) Urine Nitrite Negative (Negative) Urine Bilirubin Negative (Negative) Urine Urobilinogen <2.0 (<2.0) mg/dL Ur Leukocyte Esterase Moderate H (Negative) Urine RBC 2 (0-5) /hpf Urine WBC 8 H (0-5) /hpf Amorphous Sediment Rare H (None) /hpf Urine Bacteria Rare H (None) /hpf Hyaline Casts 1 (0-2) /lpf 11/23/18 07:50 EKG shows sinus rhythm with first-degree AV block. Otherwise normal EKG. Ventricular rate 71 bpm. Pulse 220 ms. QRS ration is 80 ms. QT QTc is 46/441 ms. - Radiology Data Radiology results: report reviewed Head CT is negative for fracture. Tib-fib x-ray shows evidence of soft tissue swelling but no fracture. Hip and pelvis x-ray shows no acute fracture. Chest x-ray shows chronic parenchymal changes and cardiomegaly without acute process. Disposition Clinical Impression: Fall, Unable to ambulate, Left leg cellulitis, Dehydration, Chronic abdominal wound infection Disposition: ADMITTED IP TO THIS HOSP Condition: Stable Is patient prescribed a controlled substance at d/c from ED?: No Referrals: Jack Manley DO [Primary Care Provider] - 1-2 days Time of Disposition: 12:15
[2018-11-23 07:52] LABS: Basophils % (A) 0 %; Eosinophils % (A) 0 %; HCT 26.4 % (34.0-46.0); HGB 8.5 gm/dL (11.4-16.0); Lymphocytes # (A) 0.9 k/uL (1.0-4.8); Lymphocytes % (A) 9 %; MCH 27.5 pg (25.0-35.0); MCHC 32.2 g/dL (31.0-37.0); MCV 85.3 fL (80.0-100.0); Mean Platelet Volume 6.5; Monocytes # (A) 0.4 k/uL (0-1.0); Monocytes % (A) 4 %; Neutrophils # (A) 8.4 k/uL (1.3-7.7); Neutrophils % (A) 85 %; Platelet Count 455 k/uL (150-450); RBC 3.09 m/uL (3.80-5.40); RDW 14.5 % (11.5-15.5); WBC 9.8 k/uL (3.8-10.6)
[2018-11-23 08:03] LABS: Albumin 2.7 g/dL (3.5-5.0); Calcium 8.4 mg/dL (8.4-10.2); Potassium 3.3 mmol/L (3.5-5.1); Total Bilirubin 0.5 mg/dL (0.2-1.3)
[2018-11-23] MEDS: SODIUM CHLORIDE 0.9% 1,000 ML IV SCH ×2 (08:08→18:32)
[2018-11-23 08:13] LABS: INR 1.2 (<1.2); Prothrombin Time 12.8 sec (9.0-12.0)
[2018-11-23 08:14] LABS: Partial Thromboplastin Time 28.1 sec (22.0-30.0)
[2018-11-23 08:21] LABS: Amorphous Sediment,Urine Rare /hpf; Appearance,Urine Clear (Clear); Bacteria,Urine Rare /hpf; Bilirubin,Urine Negative (Negative); Blood,Urine Negative (Negative); Color,Urine Yellow; Glucose,Urine (UA) Negative (Negative); Hyaline Casts,Urine 1 /lpf (0-2); Ketones,Urine Trace (Negative); Leukocyte Esterase,Urine Moderate (Negative); Nitrite,Urine Negative (Negative); PH, Urine 5.5 (5.0-8.0); Protein,Urine Negative (Negative); RBC,Urine 2 /hpf (0-5); Specific Gravity,Urine 1.007 (1.001-1.035); Urobilinogen,Urine <2.0 mg/dL (<2.0)
--- NOTE | 2018-11-23 09:11 | XR ---
EXAMINATION TYPE: XR Hip LT and AP Pelvis DATE OF EXAM: 11/23/2018 COMPARISON: NONE HISTORY: Pelvic and left hip pain after fall injury. TECHNIQUE: A single AP view of the pelvis is obtained. Two views of the left hip are obtained. FINDINGS: Demineralization is present which is noted to the radiographic sensitivity. There is no acu te fracture/dislocation evident in the pelvis. The sacroiliac joints appear symmetric and unremarkab le. Mild to moderate axial joint space loss in both hips is present. Pubic symphysis is intact. Overl gracie surgical sutures are felt present. Two views of left hip show no acute fracture or dislocation. No focal lytic or sclerotic lesion seen in the proximal left femur. The overlying soft tissue is unremarkable. IMPRESSION: There is no acute fracture or dislocation in the pelvis or left hip.
--- NOTE | 2018-11-23 09:12 | XR ---
EXAMINATION TYPE: XR tibia fibula LT DATE OF EXAM: 11/23/2018 CLINICAL HISTORY: Pain after fall injury. TECHNIQUE: Two views of the left leg are obtained. COMPARISON: None. FINDINGS: Demineralization is present. There is no acute fracture or dislocation seen in the left tib ia or fibula. Metallic artifact from left knee arthroplasty is identified. Ankle joint felt within no rmal limits. Moderate to severe diffuse subcutaneous edema is present. Moderate distal soft tissue sw elling is present. IMPRESSION: There is no acute fracture or dislocation seen in the left tibia or fibula.
--- NOTE | 2018-11-23 09:13 | XR ---
EXAMINATION TYPE: XR chest 1V DATE OF EXAM: 11/23/2018 COMPARISON: Chest x-ray November 15, 2018. HISTORY: Pain after fall injury. TECHNIQUE: Single frontal view of the chest is obtained. FINDINGS: There is chronic parenchymal change without suspicious focal air space opacity, pleural ef fusion, or pneumothorax seen. The cardiac silhouette size is enlarged with ectatic aorta. The osse ous structures are demineralized. IMPRESSION: Chronic parenchymal changes and cardiomegaly without acute pulmonary process.
--- NOTE | 2018-11-23 11:06 | CT ---
EXAMINATION TYPE: CT hip LT wo con DATE OF EXAM: 11/23/2018 COMPARISON: CT abdomen and pelvis 8 days ago. Pelvic and left hip x-ray earlier today. HISTORY: left hip pain post fall CT DLP: 506.8 mGycm Automated exposure control for dose reduction was used. FINDINGS: Osseous structures are demineralized. There is no acute fracture or dislocation in the left hip. Mild -to-moderate axial joint space loss is redemonstrated. Muscle bulk is preserved. Prominent but subcen timeter left groin lymph nodes are redemonstrated. No groin hernia is present. Rascon catheter in decompressed bladder. Uterus is suspected surgically absent. No suspicious bowel di latation or concerning pelvic fluid collection. Left groin sutures are redemonstrated. IMPRESSION: NO ACUTE FRACTURE OR DISLOCATION IN THE LEFT HIP.
[2018-11-23] MEDS ORDERED: ONDANSETRON 4 MG/2 ML VIAL IVP PRN (12:16)
[2018-11-23] MEDS ORDERED: MORPHINE SULFATE 4 MG/ML SYRINGE IV PRN (12:16)
[2018-11-23] MEDS ORDERED: HYDROcodone/APAP 5-325MG 1 EACH TAB PO PRN (12:16)
[2018-11-23] MEDS ORDERED: IBUPROFEN 400 MG TAB PO PRN (12:16)
[2018-11-23] MEDS ORDERED: NALOXONE 0.4 MG/ML 1 ML VIAL IV PRN (12:16)
--- NOTE | 2018-11-23 12:31 | US ---
EXAMINATION TYPE: US venous doppler duplex LE LT DATE OF EXAM: 11/23/2018 12:05 PM COMPARISON: US 2010 CLINICAL HISTORY: Pain. Left leg swelling, history DVT SIDE PERFORMED: Left TECHNIQUE: The lower extremity deep venous system is examined utilizing real time linear array sonog juliocesar with graded compression, doppler sonography and color-flow sonography. VESSELS IMAGED: External Iliac Vein (EIV) Common Femoral Vein Deep Femoral Vein Greater Saphenous Vein * Femoral Vein Popliteal Vein Small Saphenous Vein * Proximal Calf Veins (* superficial vessels) Left Leg: Positive for non occlusive DVT, low level echoes seen within common femoral vein, superfic ial femoral vein and popliteal vein, there is color flow seen with partial compressibility, possible chronic rather than acute findings Grayscale, color doppler, spectral doppler imaging performed of the deep veins of the left lower extr emity. There is normal flow, compressibility, vascular waveforms. 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 No significant change from prior study 2010.
[2018-11-23] MEDS ORDERED: HEPARIN SODIUM,PORCINE 5,000 UNIT/ML 1 ML VIAL IV PRN (12:39)
[2018-11-23] MEDS ORDERED: HEPARIN SODIUM,PORCINE 10,000 UNIT/ML 1 ML VIAL IV ONE (12:39)
[2018-11-23] MEDS: HEPARIN SOD,PORK IN 0.45% NACL 25,000 UNIT in 0.45% NACL 1 250ML.BAG IV SCH (12:54)
[2018-11-23] MEDS: ACETAMINOPHEN TAB 325 MG TAB PO PRN (14:10)
[2018-11-23] MEDS ORDERED: ACETAMINOPHEN TAB 500 MG TAB PO PRN (17:07)
[2018-11-23 20:27] VITALS: BMI 32.5
[2018-11-23] MEDS: ASPIRIN 81 MG PO SCH (21:42)
[2018-11-23] MEDS: POTASSIUM CHLORIDE ER 10 MEQ TAB.ER.PRT PO SCH (21:44)
[2018-11-23] MEDS: CHOLECALCIFEROL 1,000 UNIT TAB PO SCH (21:44)
--- NOTE | 2018-11-24 00:31 | P.HPIM ---
History of Present Illness H&P Date: 11/23/18 Chief Complaint: Left leg pain Patient is a 83-year-old female with a known history of asthma, history of CVA/TIA, GERD and history of DVT and history of stomach ulcer presents to ER status post fall from her couch. She reports that she landed on her left leg at 2 in the morning. She is crawling around her house that she was unable to stand up and bear weight. Patient otherwise denied any complaints of fever or chills. Patient says that she does have chronic swelling of the legs and is taking Lasix and Zaroxolyn at home. Patient presents to hospital with left leg pain. Patient reports that she had a history of a bowel perforation as well as repaired by Dr. locke in September. She is currently being treated for a abdominal wound. She finished Levaquin yesterday for concern for an abscess. Patient has home health coming to change the dressing every few days. Patient has had some recent diarrhea and is evaluated few days ago for concern for C. diff. Patient was then discharged home in stable condition. Patient's daughter reports that she has been ambulating well and otherwise been doing well over the past few days since her last ER visit. Patient reports she sleeps on her couch as she is uncomfortable in her own bed. Sodium 128 and potassium 3.3 albumin 2.7 hemoglobin 8.5 Abnormal urine analysis with slightly elevated WBC 8 and moderate leukocyte esterase. Chest x-ray showed chronic parenchymal changes and cardiomegaly without acute process CT left hip showed no acute fracture or dislocation. Left lower extremity duplex scan showed persistent partial occlusive but extensive venous thrombosis in the left lower extremity. age indeterminate fevored chronic. No significant change from prior study in 2010 Review of Systems Constitutional: Patient denies any fever or chills . Patient does have generalized weakness.. Abdomen: Patient denied nausea vomiting and diarrhea and abdominal pain. Cardiovascular: Patient denies any chest pain or short of breath no palpitations. Leg swelling bilaterally. Respiratory: patient denied any cough is from production. No shortness of breath Neurologic: Patient denied any numbness or tingling headache. Musculoskeletal: Patient denies any complaints of joint swelling or deformity. Left hip pain and bilateral leg swelling Skin: Negative Psychiatric: Negative Endocrine: No heat or cold intolerance. No recent weight gain. Genitourinary: No dysuria or hematuria. All other 14 point ROS negative except the above Past Medical History Past Medical History: Asthma, Chest Pain / Angina, Heart Failure, CVA/TIA, Deep Vein Thrombosis (DVT), GERD/Reflux Additional Past Medical History / Comment(s): hx ulcer, hiatal hernia. blood clot x 3 left leg, anemia, syncope,bruises easily; see Dr Velázquez's H&P History of Any Multi-Drug Resistant Organisms: None Reported Past Surgical History: Bladder Surgery, Section, Heart Catheterization, Hysterectomy, Joint Replacement Additional Past Surgical History / Comment(s): gastrectomy, stomach tumor removed, stomach stapling, surgery to reattach ureters, left knee replacement Past Anesthesia/Blood Transfusion Reactions: Motion Sickness Additional Past Anesthesia/Blood Transfusion Reaction / Comment(s): motion sickness in past Past Psychological History: No Psychological Hx Reported Smoking Status: Former smoker Past Alcohol Use History: None Reported Past Drug Use History: None Reported - Past Family History Mother Family Medical History: Cancer Additional Family Medical History / Comment(s): "throat" CA Medications and Allergies Home Medications Medication Instructions Recorded Confirmed Type Aspirin EC [Ecotrin Low Dose] 81 mg PO HS 09/06/18 11/23/18 History Furosemide [Lasix] 40 mg PO DAILY 09/06/18 11/23/18 History Meloxicam 15 mg PO DAILY 09/06/18 11/23/18 History rOPINIRole HCL [Requip] 2 mg PO BID 09/06/18 11/23/18 History Cholecalciferol [Vitamin D3 (25 1,000 unit PO HS 11/15/18 11/23/18 History Mcg = 1000 Iu)] Potassium Chloride [Klor-Con 10] 10 meq PO BID 11/15/18 11/23/18 History Acetaminophen [Tylenol Extra 1,000 mg PO TID PRN 11/23/18 11/23/18 History Strength] Metolazone [Zaroxolyn] 5 mg PO DAILY 11/23/18 11/23/18 History Allergies Allergy/AdvReac Type Severity Reaction Status Date / Time hydromorphone HCl Allergy Itching Verified 11/23/18 19:46 [From Dilaudid] Penicillins Allergy Rash/Hives Verified 11/23/18 19:46 erythromycin base AdvReac Unknown Verified 11/23/18 19:46 [Erythromycin Base] flu vaccine Allergy Unknown Uncoded 11/23/18 19:46 Physical Exam Vitals: Vital Signs Temp Pulse Pulse Resp BP BP Pulse Ox 11/23/18 16:00 97.6 F 65 16 95/52 99 11/23/18 14:06 97.7 F 78 18 101/53 96 11/23/18 13:30 75 18 98/56 11/23/18 13:15 18 95/75 99 11/23/18 13:03 78 18 91/48 98 11/23/18 12:42 73 18 90/54 100 11/23/18 12:35 73 18 83/38 98 11/23/18 10:45 97.6 F 74 18 94/55 100 11/23/18 09:32 72 18 105/68 98 11/23/18 08:30 71 18 114/70 96 11/23/18 06:58 97.7 F 74 18 96/62 100 Intake and Output 11/23/18 11/23/18 11/23/18 06:59 14:59 22:59 Output Total 1300 Balance -1300 Output: Urine 1300 Uretheral (Rascon) 1300 Other: Weight 66.769 kg PHYSICAL EXAMINATION: Patient is lying in the bed comfortably, no acute distress, awake alert and oriented.. HEENT: Normocephalic. Neck is supple. Pupils reactive. Nostrils clear. Oral cavity is moist. Ears reveal no drainage. Neck reveals no JVD, carotid bruits, or thyromegaly. CHEST EXAMINATION: Trachea is central. Symmetrical expansion. Lung rojas clear to auscultation and percussion. CARDIAC: Normal S1, S2 with no gallops. No murmurs ABDOMEN: Soft. Bowel sounds normal. No organomegaly. No abdominal bruits. Extremities: Lower extremity 2+ edema with redness and warmth mainly left leg. No clubbing or cyanosis Neurologically awake, alert, oriented x3 with well-coordinated movements. No focal deficits noted Skin: No rash or skin lesions. Psychiatric: Coperative. Nonsuicidal Musculoskeletal: No joint swelling or deformity. Normal range of motion. Results CBC & Chem 7: 11/23/18 07:39 11/23/18 07:39 Labs: Abnormal Lab Results - Last 24 Hours (Table) 11/23/18 11/23/18 11/23/18 Range/Units 07:39 07:39 07:39 RBC 3.09 L (3.80-5.40) m/uL Hgb 8.5 L (11.4-16.0) gm/dL Hct 26.4 L (34.0-46.0) % Plt Count 455 H (150-450) k/uL Neutrophils # 8.4 H (1.3-7.7) k/uL Lymphocytes # 0.9 L (1.0-4.8) k/uL PT 12.8 H (9.0-12.0) sec INR 1.2 H (<1.2) Sodium 128 L (137-145) mmol/L Potassium 3.3 L (3.5-5.1) mmol/L Creatinine 1.15 H (0.52-1.04) mg/dL Glucose 105 H (74-99) mg/dL AST 48 H (14-36) U/L Total Protein 5.0 L (6.3-8.2) g/dL Albumin 2.7 L (3.5-5.0) g/dL Urine Ketones (Negative) Ur Leukocyte Esterase (Negative) Urine WBC (0-5) /hpf Amorphous Sediment (None) /hpf Urine Bacteria (None) /hpf 11/23/18 Range/Units 08:00 RBC (3.80-5.40) m/uL Hgb (11.4-16.0) gm/dL Hct (34.0-46.0) % Plt Count (150-450) k/uL Neutrophils # (1.3-7.7) k/uL Lymphocytes # (1.0-4.8) k/uL PT (9.0-12.0) sec INR (<1.2) Sodium (137-145) mmol/L Potassium (3.5-5.1) mmol/L Creatinine (0.52-1.04) mg/dL Glucose (74-99) mg/dL AST (14-36) U/L Total Protein (6.3-8.2) g/dL Albumin (3.5-5.0) g/dL Urine Ketones Trace H (Negative) Ur Leukocyte Esterase Moderate H (Negative) Urine WBC 8 H (0-5) /hpf Amorphous Sediment Rare H (None) /hpf Urine Bacteria Rare H (None) /hpf Microbiology - Last 24 Hours (Table) 11/23/18 08:00 Urine Culture - Preliminary Urine,Catheterized Thrombosis Risk Factor Assmnt - DVT/VTE Prophylaxis DVT/VTE Prophylaxis: Pharmacologic Prophylaxis ordered Assessment and Plan Assessment: Left lower extremity cellulitis Left leg DVT age indeterminate Hyponatremia likely hypovolemic. Lasix and Zaroxolyn is on hold currently. Hypokalemia potassium 3.3 Chronic bilateral lower extremities swelling. Anemia and hypoalbuminemia is contributing. Follow BNP level. Coronary artery disease with known history of PCI Left hip pain and unable to ambulate Recent history of abdominal surgery due to perforation. History of CVA/TIA GERD History of stomach ulcer Chronic anemia Previous history of smoking Plan: Patient will be continued on IV hydration and follow-up sodium level tomorrow. Continue to monitor volume status. Pro BNP level was ordered. Continue with heparin drip. will change to oral anticoagulant. FOBT negative. Monitor H&H. Patient will be continued on antibiotics in the form of cefazolin. Follow blood cultures and urine culture. Replace potassium. Continued with pain management. Further recommendations based on the clinical course. Prognosis is guarded. Time with Patient: Greater than 30
[2018-11-24] MEDS: SODIUM CHLORIDE 0.9% 1,000 ML IV SCH ×3 (03:24→23:08)
[2018-11-24 05:51] LABS: Basophils % (A) 1 %; Eosinophils # (A) 0.2 k/uL (0-0.7); Eosinophils % (A) 3 %; HCT 25.6 % (34.0-46.0); HGB 8.3 gm/dL (11.4-16.0); Hypochromasia Slight; Lymphocytes # (A) 1.7 k/uL (1.0-4.8); Lymphocytes % (A) 35 %; MCH 28.5 pg (25.0-35.0); MCHC 32.4 g/dL (31.0-37.0); Mean Platelet Volume 7.1; Monocytes # (A) 0.2 k/uL (0-1.0); Monocytes % (A) 4 %; Neutrophils # (A) 2.8 k/uL (1.3-7.7); Neutrophils % (A) 56 %; Platelet Count 317 k/uL (150-450); RBC 2.91 m/uL (3.80-5.40); RDW 14.7 % (11.5-15.5); WBC 4.9 k/uL (3.8-10.6)
[2018-11-24 06:26] LABS: Calcium 7.9 mg/dL (8.4-10.2)
[2018-11-24] MEDS ORDERED: Potassium Replacement Protocol 1 EACH MISC MISCELLANE PRN (06:37)
[2018-11-24] MEDS: MELOXICAM 7.5 MG TAB PO SCH (08:27)
[2018-11-24] MEDS: POTASSIUM CHLORIDE ER 20 MEQ TAB.ER PO SCH ×2 (08:27→11:11)
[2018-11-24] MEDS: POTASSIUM CHLORIDE ER 10 MEQ TAB.ER.PRT PO SCH ×2 (08:27→20:30)
[2018-11-24] MEDS: FUROSEMIDE 40 MG TAB PO SCH (08:28)
[2018-11-24] MEDS: METOLAZONE 5 MG TAB PO SCH (08:28)
[2018-11-24] MEDS: HEPARIN SOD,PORK IN 0.45% NACL 25,000 UNIT in 0.45% NACL 1 250ML.BAG IV SCH (08:34)
[2018-11-24] MEDS ORDERED: PANTOPRAZOLE 40 MG/10 ML VIAL IV SCH (09:00)
--- NOTE | 2018-11-24 12:08 | P.CNOR ---
History of Present Illness - [facility] Consult date: 11/24/18 History of present illness: This patient is an 83-year-old female with a past medical history left total knee replacement, asthma, DVT, CVA/TIA, GERD, stomach ulcer, bowel perforation status post repair in September 2018 that presented to my clinic in ER on 11/23/18 after a fall. Patient states he was sleeping WHEN she rolled off the couch and landed onto her left side. She is to take. Immediate pain at the left hip. She states she is unable to get off the ground on her own, she was unable to bear weight on the left lower extremity. Therefore, the patient presented to my clinic in ER for evaluation. On presentation to the ER, X-rays of the left tibia/fibula, left hip revealed no acute fractures. A CT scan of the left hip revealed no acute fractures. Doppler US of left lower extremity showed a partial occlusive thrombosis, most likely chronic. The patient was admitted to internal medicine with a consult placed to orthopedic surgery. Patient states her pain is localized to the posterior hip. She denies radiation of her pain. She denies pain in the knee, ankle, or foot. She denies chest pain, shortness of breath, nausea, vomiting, fevers, chills, numbness or tingling of the left lower extremity. She denies back pain. Past Medical History Past Medical History: Asthma, Chest Pain / Angina, Heart Failure, CVA/TIA, Deep Vein Thrombosis (DVT), GERD/Reflux Additional Past Medical History / Comment(s): hx ulcer, hiatal hernia. blood clot x 3 left leg, anemia, syncope,bruises easily; see Dr Velázquez's H&P History of Any Multi-Drug Resistant Organisms: None Reported Past Surgical History: Bladder Surgery, Section, Heart Catheterization, Hysterectomy, Joint Replacement Additional Past Surgical History / Comment(s): gastrectomy, stomach tumor removed, stomach stapling, surgery to reattach ureters, left knee replacement Past Anesthesia/Blood Transfusion Reactions: Motion Sickness Additional Past Anesthesia/Blood Transfusion Reaction / Comm: motion sickness in past Past Psychological History: No Psychological Hx Reported Smoking Status: Former smoker Past Alcohol Use History: None Reported Past Drug Use History: None Reported - Past Family History Mother Family Medical History: Cancer Additional Family Medical History / Comment(s): "throat" [place] Medications and Allergies Home Medications Medication Instructions Recorded Confirmed Type Aspirin EC [Ecotrin Low Dose] 81 mg PO HS 09/06/18 11/23/18 History Furosemide [Lasix] 40 mg PO DAILY 09/06/18 11/23/18 History Meloxicam 15 mg PO DAILY 09/06/18 11/23/18 History rOPINIRole HCL [Requip] 2 mg PO BID 09/06/18 11/23/18 History Cholecalciferol [Vitamin D3 (25 1,000 unit PO HS 11/15/18 11/23/18 History Mcg = 1000 Iu)] Potassium Chloride [Klor-Con 10] 10 meq PO BID 11/15/18 11/23/18 History Acetaminophen [Tylenol Extra 1,000 mg PO TID PRN 11/23/18 11/23/18 History Strength] Metolazone [Zaroxolyn] 5 mg PO DAILY 11/23/18 11/23/18 History Allergies Allergy/AdvReac Type Severity Reaction Status Date / Time hydromorphone HCl Allergy Itching Verified 11/23/18 19:46 [From Dilaudid] Penicillins Allergy Rash/Hives Verified 11/23/18 19:46 erythromycin base AdvReac Unknown Verified 11/23/18 19:46 [Erythromycin Base] flu vaccine Allergy Unknown Uncoded 11/23/18 19:46 Physical Examination On examination, the patient is lying in bed in no apparent distress. She is alert and oriented 3. Her head is atraumatic and normocephalic. Her breathing appears nonlabored. On inspection of the left hip, there is no erythema, ecchymosis, skin discoloration, open wounds, or lacerations. There is tenderness to palpation of the posterior hip. There is no pain on palpation of the distal femur, knee, proximal tibia or fibula, dorsal or plantar foot. Mild tenderness to palpation of the lateral ankle. There is mild pain with passive range motion of the hip. Mild pain with logrolling. No pain with passive range of motion of the knee, ankle. Motor and sensory are intact to left lower extremity. Dorsalis pedis pulse palpable. The left lower extremity is warm and well perfused. Results Left pelvis/hip x-ray 11/23/18: No acute fractures. Left tibia/fibula x-ray 11/23/18: No acute fractures. Left hip CT scan 11/23/18: No acute fractures. Doppler US left lower extremity 11/23/18: Partial occlusive thrombosis, most likely chronic. - Labs Labs: Abnormal Lab Results - Last 24 Hours (Table) 11/23/18 11/24/18 11/24/18 Range/Units 19:30 05:26 05:26 RBC 2.91 L (3.80-5.40) m/uL Hgb 8.3 L (11.4-16.0) gm/dL Hct 25.6 L (34.0-46.0) % APTT >200.0 H* (22.0-30.0) sec Sodium 132 L (137-145) mmol/L Potassium 3.0 L (3.5-5.1) mmol/L Carbon Dioxide 19 L (22-30) mmol/L Calcium 7.9 L (8.4-10.2) mg/dL 11/24/18 Range/Units 05:26 RBC (3.80-5.40) m/uL Hgb (11.4-16.0) gm/dL Hct (34.0-46.0) % APTT >200.0 H* (22.0-30.0) sec Sodium (137-145) mmol/L Potassium (3.5-5.1) mmol/L Carbon Dioxide (22-30) mmol/L Calcium (8.4-10.2) mg/dL Microbiology - Last 24 Hours (Table) 11/23/18 08:00 Urine Culture - Preliminary Urine,Catheterized H & H 11/23/18 11/24/18 Range/Units 07:39 05:26 Hgb 8.5 L 8.3 L (11.4-16.0) gm/dL Hct 26.4 L 25.6 L (34.0-46.0) % Coagulation 11/23/18 Range/Units 07:39 INR 1.2 H (<1.2) Result Diagrams: 11/24/18 05:26 11/24/18 05:26 Assessment and Plan Assessment: Severe left hip pain status-post ground level fall. Inability to ambulate. Plan: - Clinical, x-ray, and CT scan findings were discussed with the patient. We will plan to obtain an MRI of the left hip and pelvis to assess for an occult fracture as a source of the patient's pain. - Continue pain management and medical management per admitting team. - Further recommendations will be based off of MRI results. Patient discussed with Dr. Barkley.
[2018-11-24] MEDS: HEPARIN SODIUM,PORCINE 5,000 UNIT/ML 1 ML VIAL IV PRN ×2 (14:10→21:58)
--- NOTE | 2018-11-24 14:51 | P.PN ---
Subjective Progress Note Date: 11/25/18 Patient is a 83-year-old female with a known history of asthma, history of CVA/TIA, GERD and history of DVT and history of stomach ulcer presents to ER status post fall from her couch. She reports that she landed on her left leg at 2 in the morning. She is crawling around her house that she was unable to stand up and bear weight. Patient otherwise denied any complaints of fever or chills. Patient says that she does have chronic swelling of the legs and is taking Lasix and Zaroxolyn at home. Patient presents to hospital with left leg pain. Patient reports that she had a history of a bowel perforation as well as repaired by Dr. locke in September. She is currently being treated for a abdominal wound. She finished Levaquin yesterday for concern for an abscess. Patient has home health coming to change the dressing every few days. Patient has had some recent diarrhea and is evaluated few days ago for concern for C. diff. Patient was then discharged home in stable condition. Patient's daughter reports that she has been ambulating well and otherwise been doing well over the past few days since her last ER visit. Patient reports she sleeps on her couch as she is uncomfortable in her own bed. Sodium 128 and potassium 3.3 albumin 2.7 hemoglobin 8.5 Abnormal urine analysis with slightly elevated WBC 8 and moderate leukocyte esterase. Chest x-ray showed chronic parenchymal changes and cardiomegaly without acute process CT left hip showed no acute fracture or dislocation. Left lower extremity duplex scan showed persistent partial occlusive but extensive venous thrombosis in the left lower extremity. age indeterminate fevored chronic. No significant change from prior study in 2010 Maintained on heparin drip and IV cefazolin. Receiving potassium supplements for potassium of 3.3. Continues on IV fluid hydration with sodium improving up to 132. Significant left hip pain. Evaluated by orthopedic surgery and MRI ordered. Objective - Vital Signs Vital signs: Vital Signs Temp 98.3 F 11/24/18 07:00 Pulse 59 L 11/24/18 07:00 Resp 15 11/24/18 07:00 BP 116/63 11/24/18 07:00 Pulse Ox 96 11/24/18 07:00 Intake & Output 11/23/18 11/24/18 11/24/18 18:59 06:59 18:59 Intake Total 320 411.238 0 Output Total 1300 1800 Balance -980 -3738.762 0 Weight 60.5 kg Intake: Intake, IV Titration 181.238 0 Amount Heparin Sod,Pork in 0.45% 181.238 0 NaCl 25,000 unit In 0.45 % NaCl 1 250ml.bag @ 18 UNITS/KG/HR 12.018 mls/hr IV .[id number] [facility] Rx#: [id number] Oral 320 230 Output: Urine 1300 1800 Uretheral (Rascon) 1300 Other: Voiding Method Indwelling Catheter Indwelling Catheter - Exam Patient is lying in the bed comfortably, no acute distress, awake alert and oriented. HEENT: Normocephalic. Neck is supple. Pupils reactive. Nostrils clear. Oral cavity is moist. Neck reveals no JVD, carotid bruits, or thyromegaly. CHEST EXAMINATION: Trachea is central. Symmetrical expansion. Lung rojas clear to auscultation and percussion. CARDIAC: Normal S1, S2 with no gallops. No murmurs ABDOMEN: Soft. Bowel sounds normal. No organomegaly. No abdominal bruits. Extremities: Lower extremity 2+ edema with redness and warmth mainly left leg. No clubbing or cyanosis Neurologically awake, alert, oriented x3 with well-coordinated movements. No focal deficits noted Skin: No rash or skin lesions. Musculoskeletal: No joint swelling or deformity. Normal range of motion. - Labs CBC & Chem 7: 11/24/18 05:26 11/24/18 05:26 Labs: Abnormal Lab Results - Last 24 Hours (Table) 11/23/18 11/24/18 11/24/18 Range/Units 19:30 05:26 05:26 RBC 2.91 L (3.80-5.40) m/uL Hgb 8.3 L (11.4-16.0) gm/dL Hct 25.6 L (34.0-46.0) % APTT >200.0 H* (22.0-30.0) sec Sodium 132 L (137-145) mmol/L Potassium 3.0 L (3.5-5.1) mmol/L Carbon Dioxide 19 L (22-30) mmol/L Calcium 7.9 L (8.4-10.2) mg/dL 11/24/18 Range/Units 05:26 RBC (3.80-5.40) m/uL Hgb (11.4-16.0) gm/dL Hct (34.0-46.0) % APTT >200.0 H* (22.0-30.0) sec Sodium (137-145) mmol/L Potassium (3.5-5.1) mmol/L Carbon Dioxide (22-30) mmol/L Calcium (8.4-10.2) mg/dL Microbiology - Last 24 Hours (Table) 11/23/18 08:00 Urine Culture - Preliminary Urine,Catheterized Assessment and Plan Assessment: Left lower extremity cellulitis Left leg DVT age indeterminate Severe left hip pain status post fall, MRI pending Hyponatremia likely hypovolemic. Lasix and Zaroxolyn is on hold currently. Hypokalemia potassium 3.3 Chronic bilateral lower extremities swelling. Anemia and hypoalbuminemia is contributing. Follow BNP level. Coronary artery disease with known history of PCI Left hip pain and unable to ambulate Recent history of abdominal surgery due to perforation. History of CVA/TIA GERD History of stomach ulcer Chronic anemia Previous history of smoking Plan: Continue on current medication regime ,monitoring and symptomatic treatment. Potassium supplements as previously ordered via protocol. Close monitoring of electrolytes, hemoglobin with repeat labs ordered for a.m. maintain IV antibiotics of cefazolin, urine and blood cultures pending. Pain management. Evaluated by orthopedic surgery, MRI of left hip and pelvis ordered The impression and plan of care has been dictated as directed. : I performed a history and examination of this patient, discussed the same with the dictator. I agree with the dictator's note ,documented as a scribe. Any additional findings or plans will be noted.
--- NOTE | 2018-11-24 16:37 | MR ---
EXAMINATION TYPE: MR pelvis wo con DATE OF EXAM: 11/24/2018 COMPARISON: CT and x-ray left hip from yesterday. HISTORY: Pelvis/lt hip pain following fall Standard multiplanar, multisequence MRI departmental protocol Multiplanar, multisequence images of the pelvis focusing on left hip were acquired. FINDINGS: Bone marrow signal intensity in the visualized pelvis including left hip shows no suspiciou s edema. There is symmetric mild/moderate axial joint space loss in both hips redemonstrated. There a re symmetric small bilateral hip joint effusions. Femoral head shapes are maintained bilaterally. Mus melquiades bulk bilateral thighs is symmetric and felt within normal limits. No groin adenopathy or suspicio us groin hernia is seen. No well-formed fluid collection or significant focal hematoma is noted. Rascon catheter in bladder which is not decompressed. No suspicious bowel dilatation. No concerning pe lvic fluid collection. Uterus suspect is surgically absent. IMPRESSION: No significant osseous contusion or occult fracture.
--- NOTE | 2018-11-24 16:56 | MR ---
EXAMINATION TYPE: MR hip LT wo con DATE OF EXAM: 11/24/2018 COMPARISON: MRI 11/24/2018, CT scan 11/23/2018 HISTORY: Pelvis/lt hip pain following fall Standard multiplanar, multisequence MRI departmental protocol Multiplanar, multisequence images of the left hip were acquired. FINDINGS: Exam limited by motion artifact. Bone marrow signal intensity in the visualized pelvis including left hip shows no suspicious edema. T here is symmetric mild/moderate axial joint sp kim loss in both hips redemonstrated. There are symmet xavi small bilateral hip joint effusions. Femoral head shapes are maintained bilaterally. Trace of flu id within the joint space bilaterally. Muscle bulk bilateral is symmetric and felt compatible with m uscular atrophy. There appears to be subcutaneous edema bilaterally. Degenerative change lower lumbar spine. No groin adenopathy or suspicious groin hernia is seen. No well-formed fluid collection or significan t focal hematoma is noted. Rascon catheter in bladder and air within the bladder likely secondary to F oley catheter, correlate clinically. Arthropathy of the left SI joint noted. Uterus suspect is surgic ally absent. IMPRESSION: 1. No acute fracture.
--- NOTE | 2018-11-24 17:45 | P.GSCN ---
History of Present Illness Consult date: 11/24/18 History of present illness: Patient well known to me. She previously has had a small bowel resection for a perforated strangulated left upper quadrant hernia. She's had a wound in the left lower quadrant which is been draining a small amount of purulent drainage. She's been seeing wound care regarding this.she apparently had a fall at home was then having hip pain. She was found have a DVT upon admission. She is tolerating her diet no nausea vomiting. Past Medical History Past Medical History: Asthma, Chest Pain / Angina, Heart Failure, CVA/TIA, Deep Vein Thrombosis (DVT), GERD/Reflux Additional Past Medical History / Comment(s): hx ulcer, hiatal hernia. blood clot x 3 left leg, anemia, syncope,bruises easily; see Dr Velázquez's H&P History of Any Multi-Drug Resistant Organisms: None Reported Past Surgical History: Bladder Surgery, Section, Heart Catheterization, Hysterectomy, Joint Replacement Additional Past Surgical History / Comment(s): gastrectomy, stomach tumor removed, stomach stapling, surgery to reattach ureters, left knee replacement Past Anesthesia/Blood Transfusion Reactions: Motion Sickness Additional Past Anesthesia/Blood Transfusion Reaction / Comm: motion sickness in past Past Psychological History: No Psychological Hx Reported Smoking Status: Former smoker Past Alcohol Use History: None Reported Past Drug Use History: None Reported - Past Family History Mother Family Medical History: Cancer Additional Family Medical History / Comment(s): "throat" CA Medications and Allergies Home Medications Medication Instructions Recorded Confirmed Type Aspirin EC [Ecotrin Low Dose] 81 mg PO HS 09/06/18 11/23/18 History Furosemide [Lasix] 40 mg PO DAILY 09/06/18 11/23/18 History Meloxicam 15 mg PO DAILY 09/06/18 11/23/18 History rOPINIRole HCL [Requip] 2 mg PO BID 09/06/18 11/23/18 History Cholecalciferol [Vitamin D3 (25 1,000 unit PO HS 11/15/18 11/23/18 History Mcg = 1000 Iu)] Potassium Chloride [Klor-Con 10] 10 meq PO BID 11/15/18 11/23/18 History Acetaminophen [Tylenol Extra 1,000 mg PO TID PRN 11/23/18 11/23/18 History Strength] Metolazone [Zaroxolyn] 5 mg PO DAILY 11/23/18 11/23/18 History Allergies Allergy/AdvReac Type Severity Reaction Status Date / Time hydromorphone HCl Allergy Itching Verified 11/23/18 19:46 [From Dilaudid] Penicillins Allergy Rash/Hives Verified 11/23/18 19:46 erythromycin base AdvReac Unknown Verified 11/23/18 19:46 [Erythromycin Base] flu vaccine Allergy Unknown Uncoded 11/23/18 19:46 Surgical - Exam Osteopathic Statement: *. No significant issues noted on an osteopathic structural exam other than those noted in the History and Physical/Consult. Vital Signs Temp Pulse Resp BP Pulse Ox 97.7 F 74 18 96/62 100 11/23/18 06:58 11/23/18 06:58 11/23/18 06:58 11/23/18 06:58 11/23/18 06:58 - General well developed, well nourished - Eyes PERRL - Respiratory normal expansion, normal respiratory effort - Cardiovascular Rhythm: regular - Abdomen wound with minimal purulent drainage, no erythema, no bilious drainage. no tenderness Abdomen: soft, non tender - Neurologic normal coordination, normal sensation - Psychiatric oriented to time, oriented to person, oriented to place Results - Labs 11/24/18 05:26 11/24/18 05:26 Abnormal Lab Results - Last 24 Hours (Table) 11/23/18 11/24/18 11/24/18 Range/Units 19:30 05:26 05:26 RBC 2.91 L (3.80-5.40) m/uL Hgb 8.3 L (11.4-16.0) gm/dL Hct 25.6 L (34.0-46.0) % APTT >200.0 H* (22.0-30.0) sec Sodium 132 L (137-145) mmol/L Potassium 3.0 L (3.5-5.1) mmol/L Carbon Dioxide 19 L (22-30) mmol/L Calcium 7.9 L (8.4-10.2) mg/dL 11/24/18 Range/Units 05:26 RBC (3.80-5.40) m/uL Hgb (11.4-16.0) gm/dL Hct (34.0-46.0) % APTT >200.0 H* (22.0-30.0) sec Sodium (137-145) mmol/L Potassium (3.5-5.1) mmol/L Carbon Dioxide (22-30) mmol/L Calcium (8.4-10.2) mg/dL Microbiology - Last 24 Hours (Table) 11/23/18 12:40 Blood Culture - Preliminary Blood No Growth after 24 hours 11/23/18 08:00 Urine Culture - Preliminary Urine,Catheterized Diabetes panel 11/24/18 Range/Units 05:26 Sodium 132 L (137-145) mmol/L Potassium 3.0 L (3.5-5.1) mmol/L Chloride 105 (98-107) mmol/L Carbon Dioxide 19 L (22-30) mmol/L BUN 7 (7-17) mg/dL Creatinine 0.80 (0.52-1.04) mg/dL Glucose 75 (74-99) mg/dL Calcium 7.9 L (8.4-10.2) mg/dL Calcium panel 11/24/18 Range/Units 05:26 Calcium 7.9 L (8.4-10.2) mg/dL Pituitary panel 11/24/18 Range/Units 05:26 Sodium 132 L (137-145) mmol/L Potassium 3.0 L (3.5-5.1) mmol/L Chloride 105 (98-107) mmol/L Carbon Dioxide 19 L (22-30) mmol/L BUN 7 (7-17) mg/dL Creatinine 0.80 (0.52-1.04) mg/dL Glucose 75 (74-99) mg/dL Calcium 7.9 L (8.4-10.2) mg/dL Adrenal panel 11/24/18 Range/Units 05:26 Sodium 132 L (137-145) mmol/L Potassium 3.0 L (3.5-5.1) mmol/L Chloride 105 (98-107) mmol/L Carbon Dioxide 19 L (22-30) mmol/L BUN 7 (7-17) mg/dL Creatinine 0.80 (0.52-1.04) mg/dL Glucose 75 (74-99) mg/dL Calcium 7.9 L (8.4-10.2) mg/dL Assessment and Plan Assessment: chronic left upper quadrant wound Plan: continue daily dressing and packing changes and when necessary dressing and packing changes. no plans for surgical intervention
[2018-11-24] MEDS: ASPIRIN 81 MG PO SCH (20:20)
[2018-11-24] MEDS: CHOLECALCIFEROL 1,000 UNIT TAB PO SCH (20:30)
[2018-11-25] MEDS: HEPARIN SOD,PORK IN 0.45% NACL 25,000 UNIT in 0.45% NACL 1 250ML.BAG IV SCH (00:25)
[2018-11-25 08:27] LABS: Basophils # (A) 0.1 k/uL (0-0.2); Basophils % (A) 1 %; Eosinophils # (A) 0.3 k/uL (0-0.7); Eosinophils % (A) 4 %; HCT 28.9 % (34.0-46.0); Hypochromasia Moderate; Lymphocytes # (A) 1.7 k/uL (1.0-4.8); Lymphocytes % (A) 26 %; MCH 27.9 pg (25.0-35.0); MCHC 31.3 g/dL (31.0-37.0); MCV 89.2 fL (80.0-100.0); Monocytes # (A) 0.3 k/uL (0-1.0); Monocytes % (A) 5 %; Neutrophils % (A) 63 %; Platelet Count 391 k/uL (150-450); RBC 3.24 m/uL (3.80-5.40); RDW 14.8 % (11.5-15.5); WBC 6.5 k/uL (3.8-10.6)
[2018-11-25 08:51] LABS: African American GFR (CKD) >90 (>60 ml/min/1.73 sqM); Anion Gap 6 mmol/L; Blood Urea Nitrogen 7 mg/dL (7-17); Carbon Dioxide 19 mmol/L (22-30); Chloride 107 mmol/L (98-107); Glucose 76 mg/dL (74-99); Potassium 3.5 mmol/L (3.5-5.1); Sodium 132 mmol/L (137-145)
[2018-11-25] MEDS: POTASSIUM CHLORIDE ER 10 MEQ TAB.ER.PRT PO SCH ×2 (08:52→20:14)
[2018-11-25] MEDS: FUROSEMIDE 40 MG TAB PO SCH (08:52)
[2018-11-25] MEDS: METOLAZONE 5 MG TAB PO SCH (08:52)
[2018-11-25] MEDS: PANTOPRAZOLE 40 MG TABLET PO SCH (08:52)
[2018-11-25] MEDS: MELOXICAM 7.5 MG TAB PO SCH (08:52)
[2018-11-25] MEDS: SODIUM CHLORIDE 0.9% 1,000 ML IV SCH ×2 (10:10→22:33)
[2018-11-25] MEDS: APIXABAN 5 MG TAB PO SCH ×2 (10:30→20:13)
--- NOTE | 2018-11-25 12:19 | P.PN ---
Subjective Progress Note Date: 11/25/18 Patient is a 83-year-old female with a known history of asthma, history of CVA/TIA, GERD and history of DVT and history of stomach ulcer presents to ER status post fall from her couch. She reports that she landed on her left leg at 2 in the morning. She is crawling around her house that she was unable to stand up and bear weight. Patient otherwise denied any complaints of fever or chills. Patient says that she does have chronic swelling of the legs and is taking Lasix and Zaroxolyn at home. Patient presents to hospital with left leg pain. Patient reports that she had a history of a bowel perforation as well as repaired by Dr. locke in September. She is currently being treated for a abdominal wound. She finished Levaquin yesterday for concern for an abscess. Patient has home health coming to change the dressing every few days. Patient has had some recent diarrhea and is evaluated few days ago for concern for C. diff. Patient was then discharged home in stable condition. Patient's daughter reports that she has been ambulating well and otherwise been doing well over the past few days since her last ER visit. Patient reports she sleeps on her couch as she is uncomfortable in her own bed. Sodium 128 and potassium 3.3 albumin 2.7 hemoglobin 8.5 Abnormal urine analysis with slightly elevated WBC 8 and moderate leukocyte esterase. Chest x-ray showed chronic parenchymal changes and cardiomegaly without acute process CT left hip showed no acute fracture or dislocation. Left lower extremity duplex scan showed persistent partial occlusive but extensive venous thrombosis in the left lower extremity. age indeterminate fevored chronic. No significant change from prior study in 201011/24/2018 Maintained on heparin drip and IV cefazolin. Receiving potassium supplements for potassium of 3.3. Continues on IV fluid hydration with sodium improving up to 132. Significant left hip pain. Evaluated by orthopedic surgery and MRI ordered. 11/25/2018 chronic abdominal wound evaluated by surgery with no surgical intervention planned. Mild confusion today. Left hip pain, improving. Left lower calf reddened, tender, suspect new DVT. Currently maintained on heparin drip. Hip and pelvis MRIs reporting no significant osseous contusion or acute fracture. Received potassium supplementation yesterday, now within normal limits. Hemoglobin 9. Urine screen reporting positive for Staphylococcus epidermides. Afebrile, normal WBC. Objective - Vital Signs Vital signs: Vital Signs Temp 97.9 F 11/25/18 07:00 Pulse 64 11/25/18 07:00 Resp 16 11/25/18 07:00 BP 147/73 11/25/18 07:00 Pulse Ox 98 11/25/18 07:00 Intake & Output 11/24/18 11/25/18 11/25/18 18:59 06:59 18:59 Intake Total 288.328 9104.029 222 Output Total 1300 900 Balance -334.866 899.029 222 Weight 61 kg Intake: Intake, IV Titration 45.134 1799.029 Amount Heparin Sod,Pork in 0.45% 45.134 149.029 NaCl 25,000 unit In 0.45 % NaCl 1 250ml.bag @ 18 UNITS/KG/HR 12.018 mls/hr IV .[id number] [facility] Rx#: [id number] Sodium Chloride 0.9% 1, 1600 000 ml @ 100 mls/hr IV . Q10H [facility] Rx#:[id number] ceFAZolin 2 gm In Sodium 50 Chloride 0.9% 50 ml @ 100 mls/hr IVPB Q8HR [facility] Rx# :[id number] Oral 920 222 Output: Urine 1300 900 Other: Voiding Method Indwelling Catheter # Voids 3 - Exam Patient is sitting up in the bed comfortably, no acute distress HEENT: Normocephalic. Neck is supple. Pupils reactive. Oral mucosa moist. Neck reveals no JVD, carotid bruits, or thyromegaly. CHEST EXAMINATION: Trachea is central. Symmetrical expansion. Lung rojas clear to auscultation and percussion. CARDIAC: Normal S1, S2 with no gallops. No murmurs ABDOMEN: Soft. Bowel sounds normal. No organomegaly. Positive bowel sounds. Dressing clean dry and intact. Extremities: Lower extremity + edema with left lower extremity redness ,warmth , tenderness. No clubbing or cyanosis Neurologically awake, alert, oriented x3 with well-coordinated movements. No focal deficits noted Skin: No rash or skin lesions. Musculoskeletal: No joint swelling or deformity. Normal range of motion. - Labs CBC & Chem 7: 11/25/18 07:25 11/25/18 07:25 Labs: Abnormal Lab Results - Last 24 Hours (Table) 11/24/18 11/25/18 11/25/18 Range/Units 20:15 01:46 07:25 RBC 3.24 L (3.80-5.40) m/uL Hgb 9.0 L (11.4-16.0) gm/dL Hct 28.9 L (34.0-46.0) % APTT 30.8 H >200.0 H* (22.0-30.0) sec Sodium (137-145) mmol/L Carbon Dioxide (22-30) mmol/L Calcium (8.4-10.2) mg/dL 11/25/18 11/25/18 Range/Units 07:25 07:25 RBC (3.80-5.40) m/uL Hgb (11.4-16.0) gm/dL Hct (34.0-46.0) % APTT >200.0 H* (22.0-30.0) sec Sodium 132 L (137-145) mmol/L Carbon Dioxide 19 L (22-30) mmol/L Calcium 8.0 L (8.4-10.2) mg/dL Microbiology - Last 24 Hours (Table) 11/23/18 12:40 Blood Culture - Preliminary Blood No Growth after 24 hours Assessment and Plan Assessment: Left lower extremity cellulitis Left leg DVT age indeterminate, suspect new given clinical presentation . Severe left hip pain status post fall Acute UTI with Staphylococcus epidermides Acute mild metabolic encephalopathy secondary to the above Hyponatremia likely hypovolemic. Hypokalemia Chronic bilateral lower extremities swelling. Anemia and hypoalbuminemia is con tributing. Follow BNP level. Coronary artery disease with known history of PCI Left hip pain and unable to ambulate Recent history of abdominal surgery due to perforation. History of CVA/TIA GERD History of stomach ulcer Chronic anemia Previous history of smoking Chronic abdominal wound Plan: Continue on current medication regime ,monitoring and symptomatic treatment. DC heparin drip, convert over to eliquis, no surgical intervention recommended as per orthopedics .Close monitoring of electrolytes, hemoglobin with repeat labs ordered for a.m. antibiotics adjusted for UTI. Pain management. Discharge planning in progress for [facility], tomorrow. The impression and plan of care has been dictated as directed. : I performed a history and examination of this patient, discussed the same with the dictator. I agree with the dictator's note ,documented as a scribe. Any additional findings or plans will be noted.
[2018-11-25] MEDS: NITROFURANTOIN MONOHYD/M-CRYST 100 MG CAP PO SCH ×2 (13:58→20:14)
[2018-11-25] MEDS: ACETAMINOPHEN TAB 325 MG TAB PO PRN (16:00)
--- NOTE | 2018-11-25 18:58 | P.PN ---
Subjective Progress Note Date: 11/25/18 This patient is an 83-year-old female with a past medical history left total knee replacement, asthma, DVT, CVA/TIA, GERD, stomach ulcer, bowel perforation status post repair in September 2018 that presented to my clinic in ER on 11/23/18 after a fall. Patient states he was sleeping WHEN she rolled off the couch and landed onto her left side. She is to take. Immediate pain at the left hip. She states she is unable to get off the ground on her own, she was unable to bear weight on the left lower extremity. Therefore, the patient presented to my clinic in ER for evaluation. On presentation to the ER, X-rays of the left tibia/fibula, left hip revealed no acute fractures. A CT scan of the left hip revealed no acute fractures. Doppler US of left lower extremity showed a partial occlusive thrombosis, most likely chronic. The patient was admitted to internal medicine with a consult placed to orthopedic surgery. Patient states her pain is localized to the posterior hip. She denies radiation of her pain. She denies pain in the knee, ankle, or foot. She denies chest pain, shortness of breath, nausea, vomiting, fevers, chills, numbness or tingling of the left lower extremity. She denies back pain. 11/25/18: Patient is examined bedside this morning. Patient states her left hip feels better today. She states she is able to move the left hip without significant pain today. She denies radiation of pain down the left lower extremity. She denies back pain. She denies any new complaints today. Objective - Vital Signs Vital signs: Vital Signs Temp 97.6 F 11/25/18 15:00 Pulse 68 11/25/18 15:00 Resp 15 11/25/18 15:00 BP 118/69 11/25/18 15:00 Pulse Ox 100 11/25/18 15:00 Intake & Output 11/24/18 11/25/18 11/25/18 18:59 06:59 18:59 Intake Total 820.179 3295.029 444 Output Total 2036 064 6602 Balance -334.866 899.029 -2656 Weight 61 kg Intake: Intake, IV Titration 45.134 1799.029 Amount Heparin Sod,Pork in 0.45% 45.134 149.029 NaCl 25,000 unit In 0.45 % NaCl 1 250ml.bag @ 18 UNITS/KG/HR 12.018 mls/hr IV .[id number] [facility] Rx#: [id number] Sodium Chloride 0.9% 1, 1600 000 ml @ 100 mls/hr IV . Q10H [facility] Rx#:[id number] ceFAZolin 2 gm In Sodium 50 Chloride 0.9% 50 ml @ 100 mls/hr IVPB Q8HR [facility] Rx# :[id number] Oral 920 444 Output: Urine 1167 033 0394 Other: Voiding Method Indwelling Catheter Indwelling Catheter # Voids 3 3 # Bowel Movements 1 - Exam On examination, the patient is lying in bed in no apparent distress. She is alert and oriented 3. Family is bedside. On inspection of the left hip, there is no erythema, ecchymosis, skin discoloration, open wounds, or lacerations. There is mild tenderness to palpation of the posterior hip. There is no pain on palpation of the distal femur, knee, proximal tibia or fibula, dorsal or plantar foot. Mild tenderness to palpation of the lateral ankle. There is minimal pain with passive range motion of the hip, decreased from yesterday. No pain with logrolling. No pain with passive range of motion of the knee, ankle. Motor and sensory are intact to left lower extremity. Dorsalis pedis pulse palpable. The left lower extremity is warm and well perfused. Left calf is erythematous. Mild pain on palpation of the calf. - Labs CBC & Chem 7: 11/25/18 07:25 11/25/18 07:25 Labs: Abnormal Lab Results - Last 24 Hours (Table) 11/24/18 11/25/18 11/25/18 Range/Units 20:15 01:46 07:25 RBC 3.24 L (3.80-5.40) m/uL Hgb 9.0 L (11.4-16.0) gm/dL Hct 28.9 L (34.0-46.0) % APTT 30.8 H >200.0 H* (22.0-30.0) sec Sodium (137-145) mmol/L Carbon Dioxide (22-30) mmol/L Calcium (8.4-10.2) mg/dL 11/25/18 11/25/18 Range/Units 07:25 07:25 RBC (3.80-5.40) m/uL Hgb (11.4-16.0) gm/dL Hct (34.0-46.0) % APTT >200.0 H* (22.0-30.0) sec Sodium 132 L (137-145) mmol/L Carbon Dioxide 19 L (22-30) mmol/L Calcium 8.0 L (8.4-10.2) mg/dL Microbiology - Last 24 Hours (Table) 11/23/18 12:40 Blood Culture - Preliminary Blood No Growth after 48 hours 11/23/18 08:00 Urine Culture - Final Urine,Catheterized Staphylococcus epidermidis - Imaging and Cardiology MRI pelvis and left hip 11/25/18: No acute osseous contusions, or a occult fractures. Left pelvis/hip x-ray 11/23/18: No acute fractures. Left tibia/fibula x-ray 11/23/18: No acute fractures. Left hip CT scan 11/23/18: No acute fractures. Doppler US left lower extremity 11/23/18: Partial occlusive thrombosis, most likely chronic. Assessment and Plan Assessment: Severe left hip pain status-post ground level fall, improving. Inability to ambulate. DVT left lower extremity. Plan: - Clinical and MRI findings were discussed with the patient and her family. I discussed with the family that there are no acute fracture seen on x-ray, computed tomography scan, or MRI. As long as it is cleared by internal medicine, she is clear from orthopedic standpoint to begin ambulation with walk er and with assistance, as tolerated. - DVT management per internal medicine. - Continue pain management and medical management per admitting team. - We will continue to follow patient as she remains an inpatient make recommendations as needed. Patient discussed with Dr. Barkley.
[2018-11-25] MEDS: CHOLECALCIFEROL 1,000 UNIT TAB PO SCH (20:14)
[2018-11-26] MEDS: SODIUM CHLORIDE 0.9% 1,000 ML IV SCH (06:46)
[2018-11-26 08:34] VITALS: BP 119/71; PULSE 65; RESP 15; TEMP 97.7
[2018-11-26 10:09] LABS: Basophils % (A) 1 %; Eosinophils # (A) 0.3 k/uL (0-0.7); Eosinophils % (A) 5 %; HGB 9.5 gm/dL (11.4-16.0); Hypochromasia Slight; Lymphocytes # (A) 1.4 k/uL (1.0-4.8); Lymphocytes % (A) 19 %; MCH 28.4 pg (25.0-35.0); MCHC 32.8 g/dL (31.0-37.0); MCV 86.8 fL (80.0-100.0); Mean Platelet Volume 7.3; Monocytes # (A) 0.3 k/uL (0-1.0); Monocytes % (A) 4 %; Neutrophils # (A) 5.1 k/uL (1.3-7.7); Neutrophils % (A) 70 %; Platelet Count 369 k/uL (150-450); RBC 3.34 m/uL (3.80-5.40); WBC 7.3 k/uL (3.8-10.6)
[2018-11-26] MEDS: MELOXICAM 7.5 MG TAB PO SCH (10:42)
[2018-11-26] MEDS: POTASSIUM CHLORIDE ER 10 MEQ TAB.ER.PRT PO SCH (10:44)
[2018-11-26] MEDS: PANTOPRAZOLE 40 MG TABLET PO SCH (10:44)
[2018-11-26] MEDS: APIXABAN 5 MG TAB PO SCH (10:44)
[2018-11-26] MEDS: FUROSEMIDE 40 MG TAB PO SCH (10:45)
[2018-11-26] MEDS: METOLAZONE 5 MG TAB PO SCH (10:45)
[2018-11-26] MEDS: NITROFURANTOIN MONOHYD/M-CRYST 100 MG CAP PO SCH (10:45)
--- NOTE | 2018-11-26 10:52 | P.DS ---
Providers Date of admission: 11/23/18 11:44 Expected date of discharge: 11/26/18 Attending physician: Jack Manley Consults: 11/23/18 12:16 Consult Physician Stat Consulting Provider: Miles Barkley Consult Reason/Comments: unable to ambulate, Fall, L leg pain Do you want consulting provider notified?: Yes Consult Physician Stat Consulting Provider: Jeet Davis Consult Reason/Comments: Surgical wound, L abdomen Do you want consulting provider notified?: Yes Primary care physician: Jack Manley Hospital Course: Final Diagnoses: Left lower extremity cellulitis Left leg DVT age indeterminate, suspect new given clinical presentation . Severe left hip pain status post fall Acute UTI with Staphylococcus epidermides Acute mild metabolic encephalopathy secondary to the above Hyponatremia likely hypovolemic. Hypokalemia Chronic bilateral lower extremities swelling. Anemia and hypoalbuminemia is contributing. Follow BNP level. Coronary artery disease with known history of PCI Left hip pain and unable to ambulate Recent history of abdominal surgery due to perforation. History of CVA/TIA GERD History of stomach ulcer Chronic anemia Previous history of smoking Chronic abdominal wound Hospital COurse:Patient is a 83-year-old female with a known history of asthma, history of CVA/TIA, GERD and history of DVT and history of stomach ulcer presents to ER status post fall from her couch. She reports that she landed on her left leg at 2 in the morning. She is crawling around her house that she was unable to stand up and bear weight. Patient otherwise denied any complaints of fever or chills. Patient says that she does have chronic swelling of the legs and is taking Lasix and Zaroxolyn at home. Patient presents to hospital with left leg pain. Patient reports that she had a history of a bowel perforation as well as repaired by Dr. davis in September. She is currently being treated for a abdominal wound. She finished Levaquin yesterday for concern for an abscess. Patient has home health coming to change the dressing every few days. Patient has had some recent diarrhea and is evaluated few days ago for concern for C. diff. Patient was then discharged home in stable condition. Patient's daughter reports that she has been ambulating well and otherwise been doing well over the past few days since her last ER visit. Patient reports she sleeps on her couch as she is uncomfortable in her own bed. Sodium 128 and potassium 3.3 albumin 2.7 hemoglobin 8.5 Abnormal urine analysis with slightly elevated WBC 8 and moderate leukocyte esterase. Chest x-ray showed chronic parenchymal changes and cardiomegaly without acute process CT left hip showed no acute fracture or dislocation. Left lower extremity duplex scan showed persistent partial occlusive but extensive venous thrombosis in the left lower extremity. age indeterminate fevored chronic. No significant change from prior study in 201011/24/2018 Maintained on heparin drip and IV cefazolin. Receiving potassium supplements for potassium of 3.3. Continues on IV fluid hydration with sodium improving up to 132. Significant left hip pain. Evaluated by orthopedic surgery and MRI ordered. 11/25/2018 chronic abdominal wound evaluated by surgery with no surgical intervention planned. Mild confusion today. Left hip pain, improving. Left lower calf reddened, tender, suspect new DVT. Currently maintained on heparin drip. Hip and pelvis MRIs reporting no significant osseous contusion or acute fracture. Received potassium supplementation yesterday, now within normal limits. Hemoglobin 9. Urine screen reporting positive for Staphylococcus epidermides. Afebrile, normal WBC. No acute fracture reported on x-ray, computed tomography scan, or MRI. Cleared from orthopedic standpoint to begin ambulation with walker and with assistance, as tolerated.Significant clinical improvement. Cleared for Dc by Orthopedics.Patient is being discharged to [facility] in a stable condition with guarded prognosis. - Exam Patient is sitting up in the bed comfortably, no acute distress CHEST EXAMINATION: Trachea is central. Symmetrical expansion. Lung rojas clear to auscultation and percussion. CARDIAC: Normal S1, S2 with no gallops. No murmurs ABDOMEN: Soft. Bowel sounds normal. No organomegaly. Positive bowel sounds. Dressing clean dry and intact. Extremities: Lower extremity + edema with left lower extremity redness ,warmth , tenderness. No clubbing or cyanosis Neurologically awake, alert, oriented x3 with well-coordinated movements. No focal deficits noted The impression and plan of care has been dictated as directed. : I performed a history and examination of this patient, discussed the same with the dictator. I agree with the dictator's note ,documented as a scribe. Any additional findings or plans will be noted. Time Taken : 35 min Patient Condition at Discharge: Stable Plan - Discharge Summary Discharge Rx Participant: No New Discharge Prescriptions: New Apixaban [Eliquis] 10 mg PO BID #11 tab Apixaban [Eliquis] 5 mg PO BID #60 tab Nitrofurantoin Monohyd/M-Cryst [Macrobid] 100 mg PO BID #14 cap Pantoprazole [Protonix] 40 mg PO DAILY tablet. Acetaminophen Tab [Tylenol] 650 mg PO Q6HR PRN tab PRN Reason: Mild Pain Or Fever > 100.5 Continue rOPINIRole HCL [Requip] 2 mg PO BID Meloxicam 15 mg PO DAILY Furosemide [Lasix] 40 mg PO DAILY Aspirin EC [Ecotrin Low Dose] 81 mg PO HS Cholecalciferol [Vitamin D3 (25 Mcg = 1000 Iu)] 1,000 unit PO HS Potassium Chloride [Klor-Con 10] 10 meq PO BID Metolazone [Zaroxolyn] 5 mg PO DAILY Discontinued Acetaminophen [Tylenol Extra Strength] 1,000 mg PO TID PRN PRN Reason: Pain Discharge Medication List Aspirin EC [Ecotrin Low Dose] 81 mg PO HS 09/06/18 [History] Furosemide [Lasix] 40 mg PO DAILY 09/06/18 [History] Meloxicam 15 mg PO DAILY 09/06/18 [History] rOPINIRole HCL [Requip] 2 mg PO BID 09/06/18 [History] Cholecalciferol [Vitamin D3 (25 Mcg = 1000 Iu)] 1,000 unit PO HS 11/15/18 [History] Potassium Chloride [Klor-Con 10] 10 meq PO BID 11/15/18 [History] Metolazone [Zaroxolyn] 5 mg PO DAILY 11/23/18 [History] Acetaminophen Tab [Tylenol] 650 mg PO Q6HR PRN tab 11/26/18 [Rx] Apixaban [Eliquis] 5 mg PO BID #60 tab 11/26/18 [Rx] Apixaban [Eliquis] 10 mg PO BID #11 tab 11/26/18 [Rx] Nitrofurantoin Monohyd/M-Cryst [Macrobid] 100 mg PO BID #14 cap 11/26/18 [Rx] Pantoprazole [Protonix] 40 mg PO DAILY tablet. 11/26/18 [Rx] Follow up Appointment(s)/Referral(s): Jack Manley DO [Primary Care Provider] - 1 Week (after dc from [facility]) Activity/Diet/Wound Care/Special Instructions: Grisel DIet: regular Activity: as per ORthopedics: with walker with assist. as tolerated CBC,BMP in 3 days
[2018-11-26 11:09] LABS: African American GFR (CKD) >90 (>60 ml/min/1.73 sqM); Anion Gap 7 mmol/L; Blood Urea Nitrogen 8 mg/dL (7-17); Calcium 8.2 mg/dL (8.4-10.2); Carbon Dioxide 27 mmol/L (22-30); Chloride 97 mmol/L (98-107); Glucose 118 mg/dL (74-99); Potassium 3.3 mmol/L (3.5-5.1); Sodium 131 mmol/L (137-145)
--- NOTE | 2018-11-26 13:09 | P.PN ---
Subjective Progress Note Date: 11/26/18 This patient is an 83-year-old female with a past medical history left total knee replacement, asthma, DVT, CVA/TIA, GERD, stomach ulcer, bowel perforation status post repair in September 2018 that presented to my clinic in ER on 11/23/18 after a fall. Patient states he was sleeping WHEN she rolled off the couch and landed onto her left side. She is to take. Immediate pain at the left hip. She states she is unable to get off the ground on her own, she was unable to bear weight on the left lower extremity. Therefore, the patient presented to my clinic in ER for evaluation. On presentation to the ER, X-rays of the left tibia/fibula, left hip revealed no acute fractures. A CT scan of the left hip revealed no acute fractures. Doppler US of left lower extremity showed a partial occlusive thrombosis, most likely chronic. The patient was admitted to internal medicine with a consult placed to orthopedic surgery. Patient states her pain is localized to the posterior hip. She denies radiation of her pain. She denies pain in the knee, ankle, or foot. She denies chest pain, shortness of breath, nausea, vomiting, fevers, chills, numbness or tingling of the left lower extremity. She denies back pain. 11/26/18: Patient is examined bedside this morning. Patient states her left hip is still aggravating her today. She states the pain is localized to the posterior hip. The patient does not radiate down her legs or into her back. She states she was up with therapy yesterday, and required a lot of assistance. Patient states she otherwise feels well, she denies chest pain, shortness of breath, nausea, fevers, chills. There are no new complaints today. Per physical therapy, the patient did very well today, and has made progress with mobilization today. She required minimal assistance with the walker, and complained of minimal pain with ambulation. Objective - Vital Signs Vital signs: Vital Signs Temp 97.7 F 11/26/18 07:00 Pulse 65 11/26/18 07:00 Resp 15 11/26/18 07:00 BP 119/71 11/26/18 07:00 Pulse Ox 96 11/26/18 07:00 Intake & Output 11/25/18 11/26/18 11/26/18 18:59 06:59 18:59 Intake Total 444 200 Output Total 3100 2375 Balance -3703 -9385 Weight 61.5 kg Intake: Intake, IV Titration 200 Amount Sodium Chloride 0.9% 1, 200 000 ml @ 100 mls/hr IV . Q10H JAILENE Rx#:[id number] Oral 444 Output: Urine 3100 2375 Other: Voiding Method Indwelling Catheter Indwelling Catheter Indwelling Catheter # Voids 3 # Bowel Movements 1 - Exam On examination, the patient is lying in bed in no apparent distress. She is alert and oriented 3. On inspection of the left hip, there is no erythema, ecchymosis, skin discoloration, open wounds, or lacerations. There is mild tenderness to palpation of the posterior hip. There is no pain on palpation of the distal femur, knee, proximal tibia or fibula, dorsal or plantar foot. Mild tenderness to palpation of the lateral ankle. There is minimal pain with passive range motion of the hip. No pain with logrolling. Able to perform straight leg raise with mild pain in the hip. No pain with passive range of motion of the knee, ankle. Motor and sensory are intact to left lower extremity. Dorsalis pedis pulse palpable. The left lower extremity is warm and well perfused. Left calf is erythematous. Mild pain on palpation of the calf. - Labs CBC & Chem 7: 11/26/18 09:10 11/26/18 09:10 Labs: Abnormal Lab Results - Last 24 Hours (Table) 11/26/18 11/26/18 Range/Units 09:10 09:10 RBC 3.34 L (3.80-5.40) m/uL Hgb 9.5 L (11.4-16.0) gm/dL Hct 29.0 L (34.0-46.0) % Sodium 131 L (137-145) mmol/L Potassium 3.3 L (3.5-5.1) mmol/L Chloride 97 L (98-107) mmol/L Glucose 118 H (74-99) mg/dL Calcium 8.2 L (8.4-10.2) mg/dL Microbiology - Last 24 Hours (Table) 11/23/18 12:40 Blood Culture - Preliminary Blood No Growth after 48 hours 11/23/18 08:00 Urine Culture - Final Urine,Catheterized Staphylococcus epidermidis Assessment and Plan Assessment: Severe left hip pain status-post ground level fall, improving. Inability to ambulate, resolved. DVT left lower extremity. Plan: - I again discussed clinical and imaging findings with the patient. I recommended the patient continue physical therapy to increase mobilization, as tolerated. Up with assistance, up with a walker. - DVT management per internal medicine. - Continue pain management and medical management per admitting team. - We will continue to follow patient as she remains an inpatient make recommendations as needed. She may follow-up at [facility] on an as- needed basis in regard to her left hip pain. Patient discussed with Dr. Barkley.
[2018-12-02] MEDS ORDERED: APIXABAN 5 MG TAB PO SCH (09:00)
== END 2018-11-26 14:46 | disposition home or self-care (01) | DRG 602 ==
LOC: EC 06:47 → 3SCARD 11:44 → 4SSUR 14:04
PROVIDERS: ADMIT Family Medicine; ATTEND Family Medicine
DX: L03.116 Cellulitis of left lower limb (principal); G93.41 Metabolic encephalopathy; I82.412 Acute embolism and thrombosis of left femoral vein; I82.432 Acute embolism and thrombosis of left popliteal vein; E87.1 Hypo-osmolality and hyponatremia; N39.0 Urinary tract infection, site not specified; D64.9 Anemia, unspecified; E86.1 Hypovolemia; E87.6 Hypokalemia; E88.09 Other disorders of plasma-protein metabolism, not elsewhere classified; I25.10 Atherosclerotic heart disease of native coronary artery without angina pectoris; I50.9 Heart failure, unspecified; J45.909 Unspecified asthma, uncomplicated; K21.9 Gastro-esophageal reflux disease without esophagitis; W08.XXXA Fall from other furniture, initial encounter; Y92.009 Unspecified place in unspecified non-institutional (private) residence as the place of occurrence of the external cause; Z79.1 Long term (current) use of non-steroidal anti-inflammatories (NSAID); Z79.899 Other long term (current) drug therapy; Z79.2 Long term (current) use of antibiotics; Z80.8 Family history of malignant neoplasm of other organs or systems; Z86.718 Personal history of other venous thrombosis and embolism; Z86.73 Personal history of transient ischemic attack (TIA), and cerebral infarction without residual deficits; Z87.11 Personal history of peptic ulcer disease; Z87.891 Personal history of nicotine dependence; Z90.710 Acquired absence of both cervix and uterus; Z96.652 Presence of left artificial knee joint; Z98.61 Coronary angioplasty status; B95.7 Other staphylococcus as the cause of diseases classified elsewhere; Z88.1 Allergy status to other antibiotic agents; Z88.5 Allergy status to narcotic agent; Z88.0 Allergy status to penicillin; Z88.7 Allergy status to serum and vaccine; T81.49XD Infection following a procedure, other surgical site, subsequent encounter; Z90.3 Acquired absence of stomach [part of]; M25.552 Pain in left hip
CPT/HCPCS: 36415; 51702; 71045; 72195; 73502; 80048; 80053; 81001; 82272; 83880; 85025; 85610; 85730; 87040; 87077; 87086; 87186; 93005; 96361; 96365; 96367; 96375; 96376; 99285

== ENCOUNTER 2018-11-30 05:47 | Inpatient (IN) | payer MEDICARE ==
--- NOTE | 2018-11-30 06:09 | ED ---
General Adult HPI <Walter Contreras - Last Filed: 11/30/18 08:48> - General Source: patient, EMS, RN notes reviewed Mode of arrival: EMS <Chris Sterling - Last Filed: 11/30/18 09:03> - General Chief complaint: Abdominal Pain Stated complaint: Abd pain Time Seen by Provider: 11/30/18 06:08 - History of Present Illness Initial comments: 83-year-old female with a past medical history of asthma, chest pain, heart failure, TIA, DVT, GERD, anemia presents to the emergency department for multiple complaints. Patient is currently living in long-term care at [facility]. She has had a Rascon catheter and since she was last in the hospital a week ago she has been being treated for a urinary tract infection. Daughter is unsure which antibiotic she is on. States that today she feels like her urinary catheter is not draining as she has some suprapubic pressure. Patient also complaining of left sided rib pain. States that this is only when she moves. Patient states that about a week ago she fell and was laying on the floor for several hours. Patient was seen at that time and admitted. Patient is denying any pain whatsoever at this time and states it is only when she moves. Daughter also states that blood pressure has been low at [facility] recently. She is concerned about this.Patient has no other complaints at this time including shortness of breath, chest pain, abdominal pain, nausea or vomiting, headache, or visual changes. (Chris Sterling) - Related Data Home Medications Medication Instructions Recorded Confirmed Aspirin EC [Ecotrin Low Dose] 81 mg PO HS 09/06/18 11/30/18 Furosemide [Lasix] 40 mg PO DAILY 09/06/18 11/30/18 Meloxicam 15 mg PO DAILY 09/06/18 11/30/18 rOPINIRole HCL [Requip] 2 mg PO BID 09/06/18 11/30/18 Cholecalciferol [Vitamin D3 (25 1,000 unit PO DAILY@1700 11/15/18 11/30/18 Mcg = 1000 Iu)] Apixaban [Eliquis] 5 mg PO DIRECTED 11/30/18 11/30/18 Bisacodyl [Dulcolax] 10 mg RECTAL DAILY PRN 11/30/18 11/30/18 Magnesium Hydroxide [Milk of 2,400 mg PO DAILY PRN 11/30/18 11/30/18 Magnesia] Metolazone [Zaroxolyn] 2.5 mg PO DAILY 11/30/18 11/30/18 Na Phos,M-B/Na Phos,Di-Ba [Fleet 133 ml RECTAL DAILY PRN 11/30/18 11/30/18 Adult] Potassium Chloride ER [K-Dur 20] 20 meq PO DAILY 11/30/18 11/30/18 Previous Rx's Medication Instructions Recorded Acetaminophen Tab [Tylenol] 650 mg PO Q6HR PRN tab 11/26/18 Apixaban [Eliquis] 10 mg PO BID #11 tab 11/26/18 Nitrofurantoin Monohyd/M-Cryst 100 mg PO BID #14 cap 11/26/18 [Macrobid] Pantoprazole [Protonix] 40 mg PO DAILY tablet. 11/26/18 Allergies Allergy/AdvReac Type Severity Reaction Status Date / Time hydromorphone HCl Allergy Itching Verified 11/30/18 08:13 [From Dilaudid] Penicillins Allergy Rash/Hives Verified 11/30/18 08:13 erythromycin base AdvReac Unknown Verified 11/30/18 08:13 [Erythromycin Base] flu vaccine Allergy Unknown Uncoded 11/30/18 08:13 Review of Systems ROS Other: All systems not noted in ROS Statement are negative. <Walter Contreras - Last Filed: 11/30/18 08:48> ROS Other: All systems not noted in ROS Statement are negative. <Chris Sterling - Last Filed: 11/30/18 09:03> ROS Statement: Those systems with pertinent positive or pertinent negative responses have been documented in the HPI. Past Medical History Past Medical History: Atrial Fibrillation, Asthma, Chest Pain / Angina, Heart Failure, CVA/TIA, Deep Vein Thrombosis (DVT), GERD/Reflux Additional Past Medical History / Comment(s): hx ulcer, hiatal hernia. blood clot x 3 left leg, anemia, syncope,bruises easily; see Dr Velázquez's H&P History of Any Multi-Drug Resistant Organisms: None Reported Past Surgical History: Bladder Surgery, Section, Heart Catheterization, Hysterectomy, Joint Replacement Additional Past Surgical History / Comment(s): gastrectomy, stomach tumor removed, stomach stapling, surgery to reattach ureters, left knee replacement Past Anesthesia/Blood Transfusion Reactions: Motion Sickness Additional Past Anesthesia/Blood Transfusion Reaction / Comment(s): motion sickness in past Past Psychological History: No Psychological Hx Reported Smoking Status: Former smoker Past Alcohol Use History: None Reported Past Drug Use History: None Reported - Past Family History Mother Family Medical History: Cancer Additional Family Medical History / Comment(s): "throat" CA <Chris Sterling - Last Filed: 11/30/18 09:03> General Exam General appearance: alert, in no apparent distress Head exam: Present: atraumatic, normocephalic, normal inspection Eye exam: Present: normal appearance, PERRL, EOMI. Absent: scleral icterus, c onjunctival injection, periorbital swelling ENT exam: Present: normal exam, mucous membranes moist Neck exam: Present: normal inspection, full ROM. Absent: tenderness, meningismus, lymphadenopathy Respiratory exam: Present: normal lung sounds bilaterally, chest wall tenderness (Patient has left lateral rib tenderness without significant bruising. States this is the side she fell on a week ago and has been painful since.). Absent: respiratory distress, wheezes, rales, rhonchi, stridor Cardiovascular Exam: Present: regular rate, normal rhythm, normal heart sounds. Absent: systolic murmur, diastolic murmur, rubs, gallop, clicks GI/Abdominal exam: Present: soft, normal bowel sounds. Absent: distended, tenderness (No tenderness whatsoever), guarding, rebound, rigid Neurological exam: Present: alert, oriented X3 Psychiatric exam: Present: normal affect, normal mood <Chris Sterling - Last Filed: 11/30/18 09:03> Course <Walter Contreras - Last Filed: 11/30/18 08:48> Vital Signs 11/30/18 11/30/18 11/30/18 05:48 07:00 08:22 Temperature 97 F L Pulse Rate 73 60 67 Respiratory 16 18 18 Rate Blood Pressure 84/64 88/54 98/56 O2 Sat by Pulse 98 98 100 Oximetry - Reevaluation(s) Reevaluation #1: 11/30/18 08:48 Patient reevaluated and remained reexamined by myself, Dr. Contreras. Patient resting comfortably in bed. I do agree with PA findings. This includes diagnostic interpretation and treatment plan. Patient has a possible left lower lobe infiltrate and was treated with antibiotics. Blood pressure has improved to 94 systolic with some IV fluids. Patient does have hyponatremia however this is somewhat chronic. Patient does not meet sepsis criteria. Case was discussed in detail with Dr. Lyons, who will admit covering for Dr. Haynes. (Phill Contreras [facility]) EKG Findings - EKG Comments: EKG Findings:: EKG performed at 06 47 shows partial afib, partial sinus rhythm. Ventricular rate 68, respirations 72, QTc 450 <Chris Sterling - Last Filed: 11/30/18 09:03> Medical Decision Making - Lab Data Result diagrams: 11/30/18 07:15 11/30/18 07:15 <Walter Contreras - Last Filed: 11/30/18 08:48> - Lab Data Result diagrams: 11/30/18 07:15 11/30/18 07:15 <Chris Sterling - Last Filed: 11/30/18 09:03> - Medical Decision Making 83-year-old female with a past medical history of asthma, chest pain, heart failure, atrial fibrillation, TIA, DVT, GERD presents to the emergency department for multiple complaints. Currently living in [facility] care at [facility] as she was recently discharged from this hospital. Patient complaining of suprapubic discomfort from Rascon catheter as well as left rib pain after a fall a week ago. This pain has been consistent and is only with movement. Tender to palpation. Rascon catheter is actively draining, patient is found to have 100 mL in her bladder. No abdominal tenderness. On presentation patient is hypotensive 84/64. Vitals are otherwise stable. Family states that she usually runs at systolic of at least 100. Patient was given fluids and this did increase to 98/56. Hemoglobin found to be 9.9 which is chronic for patient. EKG shows atrial fibrillation with a ventricular rate of 60, currently on Eliquis. Patient has a history of this. CMP shows a hyponatremia of 128 which also appears chronic. Potassium is 3.1, this was replaced orally with 40 mEq. TSHs 8, T3-T4 pending. Patient is noted to have a possible developing nodular infiltrate in the left lower lung. However hypotension is likely secondary to dehydration and patient does not meet sepsis criteria. Patient was started on antibiotics to cover for hospital-acquired pneumonia. Patient will be admitted given dehydration with hypotension as well as possible developing pneumonia. (Chris Sterling) - Lab Data Lab Results 11/30/18 11/30/18 11/30/18 Range/Units 07:15 07:15 07:15 WBC 6.7 (3.8-10.6) k/uL RBC 3.52 L (3.80-5.40) m/uL Hgb 9.9 L (11.4-16.0) gm/dL Hct 29.3 L (34.0-46.0) % MCV 83.3 (80.0-100.0) fL MCH 28.1 (25.0-35.0) pg MCHC 33.8 (31.0-37.0) g/dL RDW 15.2 (11.5-15.5) % Plt Count 279 (150-450) k/uL Neutrophils % 59 % Lymphocytes % 28 % Monocytes % 5 % Eosinophils % 6 % Basophils % 1 % Neutrophils # 3.9 (1.3-7.7) k/uL Lymphocytes # 1.9 (1.0-4.8) k/uL Monocytes # 0.3 (0-1.0) k/uL Eosinophils # 0.4 (0-0.7) k/uL Basophils # 0.1 (0-0.2) k/uL PT (9.0-12.0) sec INR (<1.2) APTT (22.0-30.0) sec Sodium 128 L (137-145) mmol/L Potassium 3.1 L (3.5-5.1) mmol/L Chloride 89 L (98-107) mmol/L Carbon Dioxide 31 H (22-30) mmol/L Anion Gap 8 mmol/L BUN 20 H (7-17) mg/dL Creatinine 0.96 (0.52-1.04) mg/dL Est GFR (CKD-EPI)AfAm 62 (>60 ml/min/1.73 sqM) Est GFR (CKD-EPI)NonAf 54 (>60 ml/min/1.73 sqM) Glucose 97 (74-99) mg/dL Plasma Lactic Acid Davin 1.4 (0.7-2.0) mmol/L Calcium 8.5 (8.4-10.2) mg/dL Magnesium 1.7 (1.6-2.3) mg/dL Total Bilirubin 0.6 (0.2-1.3) mg/dL AST 31 (14-36) U/L ALT 25 (9-52) U/L Alkaline Phosphatase 78 (38-126) U/L Troponin I (0.000-0.034) ng/mL Total Protein 5.1 L (6.3-8.2) g/dL Albumin 2.8 L (3.5-5.0) g/dL TSH 8.060 H (0.465-4.680) mIU/L Urine Color Urine Appearance (Clear) Urine pH (5.0-8.0) Ur Specific [place] (1.001-1.035) Urine Protein (Negative) Urine Glucose (UA) (Negative) Urine Ketones (Negative) Urine Blood (Negative) Urine Nitrite (Negative) Urine Bilirubin (Negative) Urine Urobilinogen (<2.0) mg/dL Ur Leukocyte Esterase (Negative) Urine RBC (0-5) /hpf Urine WBC (0-5) /hpf Urine Bacteria (None) /hpf Hyaline Casts (0-2) /lpf Urine Mucus (None) /hpf 11/30/18 11/30/18 11/30/18 Range/Units 07:15 07:15 07:24 WBC (3.8-10.6) k/uL RBC (3.80-5.40) m/uL Hgb (11.4-16.0) gm/dL Hct (34.0-46.0) % MCV (80.0-100.0) fL MCH (25.0-35.0) pg MCHC (31.0-37.0) g/dL RDW (11.5-15.5) % Plt Count (150-450) k/uL Neutrophils % % Lymphocytes % % Monocytes % % Eosinophils % % Basophils % % Neutrophils # (1.3-7.7) k/uL Lymphocytes # (1.0-4.8) k/uL Monocytes # (0-1.0) k/uL Eosinophils # (0-0.7) k/uL Basophils # (0-0.2) k/uL PT 14.5 H (9.0-12.0) sec INR 1.4 H (<1.2) APTT 33.5 H (22.0-30.0) sec Sodium (137-145) mmol/L Potassium (3.5-5.1) mmol/L Chloride (98-107) mmol/L Carbon Dioxide (22-30) mmol/L Anion Gap mmol/L BUN (7-17) mg/dL Creatinine (0.52-1.04) mg/dL Est GFR (CKD-EPI)AfAm (>60 ml/min/1.73 sqM) Est GFR (CKD-EPI)NonAf (>60 ml/min/1.73 sqM) Glucose (74-99) mg/dL Plasma Lactic Acid Davin (0.7-2.0) mmol/L Calcium (8.4-10.2) mg/dL Magnesium (1.6-2.3) mg/dL Total Bilirubin (0.2-1.3) mg/dL AST (14-36) U/L ALT (9-52) U/L Alkaline Phosphatase (38-126) U/L Troponin I 0.012 (0.000-0.034) ng/mL Total Protein (6.3-8.2) g/dL Albumin (3.5-5.0) g/dL TSH (0.465-4.680) mIU/L Urine Color Yellow Urine Appearance Clear (Clear) Urine pH 8.0 (5.0-8.0) Ur Specific [place] 1.013 (1.001-1.035) Urine Protein Negative (Negative) Urine Glucose (UA) Negative (Negative) Urine Ketones Negative (Negative) Urine Blood Small H (Negative) Urine Nitrite Negative (Negative) Urine Bilirubin Negative (Negative) Urine Urobilinogen <2.0 (<2.0) mg/dL Ur Leukocyte Esterase Trace H (Negative) Urine RBC 67 H (0-5) /hpf Urine WBC 11 H (0-5) /hpf Urine Bacteria Rare H (None) /hpf Hyaline Casts 1 (0-2) /lpf Urine Mucus Rare H (None) /hpf Disposition <Walter Contreras - Last Filed: 11/30/18 08:48> Is patient prescribed a controlled substance at d/c from ED?: No Time of Disposition: 08:55 <Chris Sterling - Last Filed: 11/30/18 09:03> Clinical Impression: HCAP (healthcare-associated pneumonia), Dehydration, Hypotension, Hypokalemia, Hyponatremia, Chronic anemia Disposition: ADMITTED IP TO [facility] Condition: Fair Referrals: Ernie Haynes DO [Primary Care Provider] - 1-2 days
[2018-11-30] MEDS ORDERED: HYDROcodone/APAP 5-325MG 1 EACH TAB PO STA (06:27)
[2018-11-30] MEDS ORDERED: SODIUM CHLORIDE 0.9% 1,000 ML IV STA (06:27)
--- NOTE | 2018-11-30 07:04 | XR ---
EXAM: XR Chest, 2 Views CLINICAL HISTORY: ITS.REASON XR Reason: Weakness TECHNIQUE: Frontal and lateral views of the chest. COMPARISON: 11/23/18 FINDINGS: Lungs: Mild left nodular opacity in the left lower lung Pleural space: Unremarkable. No pneumothorax. Heart: Upper limits of normal cardiovascular silhouette accentuated by low lung volume. Mediastinum: Unremarkable. Bones/joints: Degenerative changes in the thoracic spine. Vasculature: Tortuous thoracic aorta, unchanged. IMPRESSION: 1. Low lung volume. 2. Possible developing nodular infiltrate in the left lower lung. Follow-up to clearing recommended
[2018-11-30 07:25] LABS: Basophils # (A) 0.1 k/uL (0-0.2); Basophils % (A) 1 %; Eosinophils # (A) 0.4 k/uL (0-0.7); Eosinophils % (A) 6 %; HCT 29.3 % (34.0-46.0); HGB 9.9 gm/dL (11.4-16.0); Lymphocytes # (A) 1.9 k/uL (1.0-4.8); Lymphocytes % (A) 28 %; MCH 28.1 pg (25.0-35.0); MCHC 33.8 g/dL (31.0-37.0); MCV 83.3 fL (80.0-100.0); Mean Platelet Volume 7.7; Monocytes # (A) 0.3 k/uL (0-1.0); Monocytes % (A) 5 %; Neutrophils # (A) 3.9 k/uL (1.3-7.7); Neutrophils % (A) 59 %; Platelet Count 279 k/uL (150-450); RBC 3.52 m/uL (3.80-5.40); RDW 15.2 % (11.5-15.5); WBC 6.7 k/uL (3.8-10.6)
[2018-11-30 07:37] LABS: Albumin 2.8 g/dL (3.5-5.0); Calcium 8.5 mg/dL (8.4-10.2); INR 1.4 (<1.2); Magnesium 1.7 mg/dL (1.6-2.3); Partial Thromboplastin Time 33.5 sec (22.0-30.0); Potassium 3.1 mmol/L (3.5-5.1); Prothrombin Time 14.5 sec (9.0-12.0); Total Bilirubin 0.6 mg/dL (0.2-1.3); Total Protein 5.1 g/dL (6.3-8.2)
[2018-11-30 07:53] LABS: Appearance,Urine Clear (Clear); Bacteria,Urine Rare /hpf; Bilirubin,Urine Negative (Negative); Blood,Urine Small (Negative); Color,Urine Yellow; Glucose,Urine (UA) Negative (Negative); Hyaline Casts,Urine 1 /lpf (0-2); Ketones,Urine Negative (Negative); Leukocyte Esterase,Urine Trace (Negative); Mucus,Urine Rare /hpf; Nitrite,Urine Negative (Negative); Protein,Urine Negative (Negative); RBC,Urine 67 /hpf (0-5); Specific Gravity,Urine 1.013 (1.001-1.035); Urobilinogen,Urine <2.0 mg/dL (<2.0); WBC,Urine 11 /hpf (0-5)
[2018-11-30] MEDS ORDERED: POTASSIUM CHLORIDE ER 20 MEQ TAB.ER PO STA (08:55)
[2018-11-30] MEDS ORDERED: NALOXONE 0.4 MG/ML 1 ML VIAL IV PRN (08:58)
[2018-11-30] MEDS ORDERED: SODIUM CHLORIDE 0.9% 1,000 ML IV SCH (09:00)
[2018-11-30] MEDS ORDERED: VANCOMYCIN IV PER PHARMACY 1 EACH MISC MISCELLANE PRN (09:01)
[2018-11-30] MEDS ORDERED: VANCOMYCIN 1,000 MG in SODIUM CHLORIDE 0.9% 250 ML IVPB STA (09:16)
[2018-11-30 11:53] LABS: Glucose,Whole Blood 140 mg/dL (75-99)
[2018-11-30 12:57] LABS: T4, Free (Free Thyroxine) 0.89 ng/dL (0.78-2.19)
[2018-11-30] MEDS ORDERED: BISACODYL 10 MG SUPP RECTAL PRN (13:06)
[2018-11-30] MEDS ORDERED: NA PHOS,M-B/NA PHOS,DI-BA 133 ML ENEMA RECTAL PRN (13:06)
[2018-11-30] MEDS ORDERED: MAGNESIUM HYDROXIDE 2,400 MG/10 ML CUP PO PRN (13:06)
[2018-11-30] MEDS ORDERED: ACETAMINOPHEN TAB 325 MG TAB PO PRN (13:06)
[2018-11-30] MEDS ORDERED: IPRATROPIUM-ALBUTEROL 3 ML NEB INHALATION PRN (13:11)
--- NOTE | 2018-11-30 14:23 | HP ---
HISTORY AND PHYSICAL I am covering for Dr. Manley. DATE OF SERVICE: 11/30/2018. CHIEF COMPLAINT: Abdominal pain as well as leg cramps. HISTORY OF PRESENT ILLNESS: This 83-year-old woman with a past medical history of multiple medical problems including atrial ablation, asthma, CHF, CVA, TIA, DVT, GERD, history of bladder surgery and , was being followed by Dr. Manley in the outpatient setting. The patient recently had a small bowel resection for perforated strangulated left upper quadrant hernia by Dr. Davis. The patient is in [facility] under the care of Dr. Haynes. The patient had Rascon catheter. The patient is being treated for UTI. The patient complains of suprapubic pressure. Patient also complaining of bilateral leg cramps. The patient came to [facility] and was admitted for further evaluation and treatment. The possibility of healthcare associated pneumonia with left lower lobe infiltrate is being considered. There is no history of fever rigors. No headache, loss of consciousness or seizures. PAST MEDICAL HISTORY: History of atrial fibrillation, asthma, CHF, CVA, TIA, DVT, history of GERD, history of bladder surgery, section. MEDICATIONS: Prior to admission home medications are: 1. Milk of magnesia 2.4 grams daily p.r.n. 2. Fleets daily p.r.n. 3. Dulcolax 10 mg daily p.r.n. 4. Requip 2 mg p.o. b.i.d. 5. Macrobid 100 mg p.o. b.i.d. 6. Eliquis 10 mg p.o. b.i.d. 7. Tylenol 650 q.6h p.r.n. 8. Eliquis 5 mg p.r.n. 9. K-Dur 10 mg p.o. daily. 10.Protonix 40 mg. 11.Zaroxolyn 2.5 mg daily. 12.Meloxicam 250 mg p.o. daily. 13.Lasix 40 mg daily. 14.Vitamin D3, 1000 daily. 15.Ecotrin 81 mg at bedtime. ALLERGIES: DILAUDID, PENICILLIN, ERYTHROMYCIN based AND FLU VACCINE. FAMILY HISTORY: History of cancer, throat cancer in the family. SOCIAL HISTORY: Occasional alcohol, previous smoking. REVIEW OF SYSTEMS: ENT: No diminished vision. CARDIOVASCULAR: No angina. RESPIRATORY: No cough. GI: As mentioned earlier. : As mentioned earlier. NERVOUS SYSTEM: No numbness or weakness. ALLERGY: None. MUSCULOSKELETAL: As mentioned earlier. RHEUMATOLOGY: As mentioned. ENDOCRINE: No history of diabetes. CONSTITUTIONAL: As mentioned. DERMATOLOGY: Negative. PHYSICAL EXAMINATION: Alert oriented. Pulse 80, blood pressure 98/56, respirations 18, temperature 97 degrees, pulse ox 98% on room air. HEENT: Conjunctivae normal. Oral mucosa moist. NECK: No jugular venous distention. No lymph node enlargement. CARDIOVASCULAR: S1 and S2 muffled. RESPIRATORY: Lung sounds diminished in the bases. Few scattered rhonchi heard. Few crackles also heard in the bases. ABDOMEN: Soft, nontender. Recent surgery left upper quadrant, healed scars present otherwise. LEGS: No swelling. Minimal cellulitis present on the left lower leg. Minimal edema also present. NERVOUS SYSTEM: Higher functions as mentioned earlier. Moves all 4 limbs. No focal motor motor or sensory deficits. LYMPHATICS: No lymph nodes present in the neck, axillae or groin. SKIN: As mentioned. JOINTS: No active deformity or arthropathy. LABS: At this time show WBC 6.2, hemoglobin 9.9, sodium 128, potassium 3.1, TSH 8.60. Free T is 0.89 which is lower limit of normal and free T3 is low at 2.6. ASSESSMENT: 1. Left lower pneumonia possibly healthcare associated pneumonia. 2. Hyponatremia. 3. Hypokalemia. 4. Possible urinary tract infection present on admission. 5. History of recent small bowel resection for perforated strangulated left upper quadrant hernia. 6. Hypothyroidism. 7. History atrial fibrillation. 8. History of asthma. 9. Chest pain and angina. 10.History of CHF. 11.History of CVA/TIA. 12.History of DVT. 13.History of GERD. 14.History of hiatal hernia. 15.History of DVT of the left leg. 16.History of . 17.History of hysterectomy. 18.Remote history of nicotine dependence. 19.FULL CODE. RECOMMENDATIONS AND DISCUSSION: This 83-year-old woman presented with multiple medical issues. We will initiate broad- spectrum IV antibiotics. Otherwise I would also recommend resume the home medications and obtain cultures. Otherwise surgical evaluation also will be sought. Prognosis guarded because of multiple complex medical issues. Further recommendations will follow. Dr. Manley will follow the patient on Saturday. MMFERNANDO / EDGARDON: [id number] /
[2018-11-30] MEDS: LEVOFLOXACIN 750MG-D5W PMX 750 MG in DEXTROSE/WATER 1 150ML.BAG IVPB SCH (14:39)
[2018-11-30] MEDS: FUROSEMIDE 40 MG TAB PO SCH (14:40)
[2018-11-30] MEDS: CHOLECALCIFEROL 1,000 UNIT TAB PO SCH (14:40)
[2018-11-30 17:19] VITALS: BMI 26.2
[2018-11-30 17:26] LABS: Glucose,Whole Blood 132 mg/dL (75-99)
[2018-11-30] MEDS ORDERED: Potassium Replacement Protocol 1 EACH MISC MISCELLANE PRN (18:59)
[2018-11-30] MEDS: IPRATROPIUM-ALBUTEROL 3 ML NEB INHALATION SCH (20:18)
[2018-11-30] MEDS: ASPIRIN 81 MG PO SCH (20:48)
[2018-11-30] MEDS: NITROFURANTOIN MONOHYD/M-CRYST 100 MG CAP PO SCH (20:49)
[2018-11-30] MEDS: APIXABAN 5 MG TAB PO SCH (20:49)
[2018-12-01] MEDS ORDERED: VANCOMYCIN 1,000 MG in SODIUM CHLORIDE 0.9% 250 ML IVPB SCH (06:00)
[2018-12-01] MEDS: LEVOTHYROXINE 25 MCG TAB PO SCH (06:03)
[2018-12-01 07:16] LABS: Basophils # (A) 0.1 k/uL (0-0.2); Basophils % (A) 1 %; Eosinophils # (A) 0.3 k/uL (0-0.7); Eosinophils % (A) 4 %; HCT 27.4 % (34.0-46.0); HGB 9.2 gm/dL (11.4-16.0); Lymphocytes # (A) 1.5 k/uL (1.0-4.8); Lymphocytes % (A) 24 %; MCH 28.4 pg (25.0-35.0); MCHC 33.5 g/dL (31.0-37.0); MCV 84.6 fL (80.0-100.0); Mean Platelet Volume 7.6; Monocytes # (A) 0.3 k/uL (0-1.0); Monocytes % (A) 5 %; Neutrophils # (A) 4.1 k/uL (1.3-7.7); Neutrophils % (A) 65 %; Platelet Count 253 k/uL (150-450); RBC 3.23 m/uL (3.80-5.40); RDW 14.8 % (11.5-15.5); WBC 6.4 k/uL (3.8-10.6)
[2018-12-01 07:27] LABS: Calcium 8.2 mg/dL (8.4-10.2); Potassium 3.1 mmol/L (3.5-5.1)
[2018-12-01] MEDS: IPRATROPIUM-ALBUTEROL 3 ML NEB INHALATION SCH ×3 (08:02→19:25)
[2018-12-01] MEDS: METOLAZONE 2.5 MG TAB PO SCH (08:55)
[2018-12-01] MEDS: NITROFURANTOIN MONOHYD/M-CRYST 100 MG CAP PO SCH ×2 (08:56→20:43)
[2018-12-01] MEDS: FUROSEMIDE 40 MG TAB PO SCH (08:56)
[2018-12-01] MEDS: APIXABAN 5 MG TAB PO SCH ×2 (08:56→20:43)
[2018-12-01] MEDS: POTASSIUM CHLORIDE ER 20 MEQ TAB.ER PO SCH ×3 (08:56→14:36)
[2018-12-01] MEDS: PANTOPRAZOLE 40 MG TABLET PO SCH (08:56)
[2018-12-01] MEDS: MELOXICAM 7.5 MG TAB PO SCH (08:59)
--- NOTE | 2018-12-01 13:15 | P.GSCN ---
History of Present Illness Consult date: 12/01/18 History of present illness: This is a 83-year-old female who is well known to my service. She did have a strangulated left upper quadrant Kellogg's hernia that had perforated into her subcu tissue. She underwent a bowel resection and hernia repair at that time and the wound was left open. She still has a chronic wound in the left upper quadrant. It is clean there is small amount of drainage. She's had multiple medical comorbidities recently was hospitalized with DVT. She is in the hospital now with suspected pneumonia. She's not encouraging any abdominal corrine ns tolerating a diet having normal bowel movements. Past Medical History Past Medical History: Atrial Fibrillation, Asthma, Chest Pain / Angina, Heart Failure, CVA/TIA, Deep Vein Thrombosis (DVT), GERD/Reflux Additional Past Medical History / Comment(s): hx ulcer, hiatal hernia. blood clot x 3 left leg, anemia, syncope,bruises easily History of Any Multi-Drug Resistant Organisms: None Reported Past Surgical History: Bladder Surgery, Section, Heart Catheterization, Hysterectomy, Joint Replacement Additional Past Surgical History / Comment(s): gastrectomy, stomach tumor removed, stomach stapling, surgery to reattach ureters, left knee replacement. recent hernia surgery october 2018 Past Anesthesia/Blood Transfusion Reactions: Motion Sickness Additional Past Anesthesia/Blood Transfusion Reaction / Comm: motion sickness in past Past Psychological History: No Psychological Hx Reported Smoking Status: Former smoker Past Alcohol Use History: None Reported Additional Past Alcohol Use History / Comment(s): smoked years ago socially; drinks 2 beers daily Past Drug Use History: None Reported - Past Family History Mother Family Medical History: Cancer Additional Family Medical History / Comment(s): "throat" CA Medications and Allergies Home Medications Medication Instructions Recorded Confirmed Type Aspirin EC [Ecotrin Low Dose] 81 mg PO HS 09/06/18 11/30/18 History Furosemide [Lasix] 40 mg PO DAILY 09/06/18 11/30/18 History Meloxicam 15 mg PO DAILY 09/06/18 11/30/18 History rOPINIRole HCL [Requip] 2 mg PO BID 09/06/18 11/30/18 History Cholecalciferol [Vitamin D3 (25 1,000 unit PO DAILY@1700 11/15/18 11/30/18 History Mcg = 1000 Iu)] Acetaminophen Tab [Tylenol] 650 mg PO Q6HR PRN tab 11/26/18 11/30/18 Rx Apixaban [Eliquis] 10 mg PO BID #11 tab 11/26/18 11/30/18 Rx Nitrofurantoin Monohyd/M-Cryst 100 mg PO BID #14 cap 11/26/18 11/30/18 Rx [Macrobid] Pantoprazole [Protonix] 40 mg PO DAILY tablet. 11/26/18 11/30/18 Rx Apixaban [Eliquis] 5 mg PO DIRECTED 11/30/18 11/30/18 History Bisacodyl [Dulcolax] 10 mg RECTAL DAILY PRN 11/30/18 11/30/18 History Magnesium Hydroxide [Milk of 2,400 mg PO DAILY PRN 11/30/18 11/30/18 History Magnesia] Metolazone [Zaroxolyn] 2.5 mg PO DAILY 11/30/18 11/30/18 History Na Phos,M-B/Na Phos,Di-Ba [Fleet 133 ml RECTAL DAILY PRN 11/30/18 11/30/18 Hi story Adult] Potassium Chloride ER [K-Dur 20] 20 meq PO DAILY 11/30/18 11/30/18 History Allergies Allergy/AdvReac Type Severity Reaction Status Date / Time hydromorphone HCl Allergy Itching Verified 11/30/18 08:13 [From Dilaudid] Penicillins Allergy Rash/Hives Verified 11/30/18 08:13 erythromycin base AdvReac Unknown Verified 11/30/18 08:13 [Erythromycin Base] flu vaccine Allergy Unknown Uncoded 11/30/18 08:13 Surgical - Exam Osteopathic Statement: *. No significant issues noted on an osteopathic structural exam other than those noted in the History and Physical/Consult. Vital Signs Temp Pulse Resp BP Pulse Ox 97 F L 73 16 84/64 98 11/30/18 05:48 11/30/18 05:48 11/30/18 05:48 11/30/18 05:48 11/30/18 05:48 - General well developed, well nourished, no distress - Neck no masses - Respiratory normal expansion, normal respiratory effort - Cardiovascular Rhythm: regular - Abdomen LUQ wound is clean, dressing with small amount of drainage Abdomen: soft, non tender - Neurologic normal coordination, normal sensation - Psychiatric oriented to time, oriented to person, oriented to place Results - Labs 12/01/18 06:47 12/01/18 06:47 Abnormal Lab Results - Last 24 Hours (Table) 11/30/18 12/01/18 12/01/18 Range/Units 17:15 06:47 06:47 RBC 3.23 L (3.80-5.40) m/uL Hgb 9.2 L (11.4-16.0) gm/dL Hct 27.4 L (34.0-46.0) % Sodium 127 L (137-145) mmol/L Potassium 3.1 L (3.5-5.1) mmol/L Chloride 94 L (98-107) mmol/L BUN 18 H (7-17) mg/dL POC Glucose (mg/dL) 132 H (75-99) mg/dL Calcium 8.2 L (8.4-10.2) mg/dL Diabetes panel 11/30/18 12/01/18 Range/Units 19:16 06:47 Sodium 127 L (137-145) mmol/L Potassium 3.9 3.1 L (3.5-5.1) mmol/L Chloride 94 L (98-107) mmol/L Carbon Dioxide 25 (22-30) mmol/L BUN 18 H (7-17) mg/dL Creatinine 0.87 (0.52-1.04) mg/dL Glucose 97 (74-99) mg/dL Calcium 8.2 L (8.4-10.2) mg/dL Calcium panel 12/01/18 Range/Units 06:47 Calcium 8.2 L (8.4-10.2) mg/dL Pituitary panel 11/30/18 12/01/18 Range/Units 19:16 06:47 Sodium 127 L (137-145) mmol/L Potassium 3.9 3.1 L (3.5-5.1) mmol/L Chloride 94 L (98-107) mmol/L Carbon Dioxide 25 (22-30) mmol/L BUN 18 H (7-17) mg/dL Creatinine 0.87 (0.52-1.04) mg/dL Glucose 97 (74-99) mg/dL Calcium 8.2 L (8.4-10.2) mg/dL Adrenal panel 11/30/18 12/01/18 Range/Units 19:16 06:47 Sodium 127 L (137-145) mmol/L Potassium 3.9 3.1 L (3.5-5.1) mmol/L Chloride 94 L (98-107) mmol/L Carbon Dioxide 25 (22-30) mmol/L BUN 18 H (7-17) mg/dL Creatinine 0.87 (0.52-1.04) mg/dL Glucose 97 (74-99) mg/dL Calcium 8.2 L (8.4-10.2) mg/dL Assessment and Plan Assessment: chronic LUQ wound Plan: Continue daily and PRN dressing and packing changes per nursing. No plans for surgical intervention
[2018-12-01] MEDS: HYDROcodone/APAP 5-325MG 1 EACH TAB PO PRN (13:38)
--- NOTE | 2018-12-01 17:19 | PN ---
PROGRESS NOTE DATE OF SERVICE: 12/01/2018 I am covering for Dr. Manley. This 83-year-old woman who presented with possible healthcare associated pneumonia also had recent surgery. Dr. Davis is following the patient closely. No chest pain. No palpitations. No fever. Occasional cough is reported. PHYSICAL EXAM: Alert and oriented x3. Pulse is 70, blood pressure 90/52, respirations 16, temperature 98 degrees, pulse ox 91% on room air. HEENT: Conjunctivae normal. Oral mucosa moist. NECK: No jugular venous distention. No lymph node enlargement. CARDIOVASCULAR: S1, S2. RESPIRATORY: Diminished breath sounds at the bases. Scattered rhonchi, no crackles. ABDOMEN: Soft. Left upper quadrant chronic wound. No mass palpable. No guarding, no rigidity. LEGS: No swelling. NERVOUS SYSTEM: Higher functions mentioned earlier. Moves all four limbs. No focal deficits. LYMPHATICS: No lymph node in neck or axilla. SKIN: No rash. JOINTS: No active deforming arthropathy. LABS: WBC 6, hemoglobin 9.2 sodium 127, potassium 3.1. ASSESSMENT: 1. Left lobe pneumonia, possibly healthcare associated pneumonia. 2. Hyponatremia, severe. 3. Hypokalemia, severe. 4. Possible urinary tract infection present on admission. 5. 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 6. History of recent small-bowel resection and perforated strangulated left upper quadrant hernia. 7. Hypothyroidism. 8. History atrial fibrillation. 9. History of asthma. 10.Chest pain, angina. 11.History of congestive heart failure. 12.History of cerebrovascular accident, transient ischemic attack. 13.History of deep vein thrombosis. 14.History of gastroesophageal reflux disease. 15.Hiatal hernia. 16.History of deep venous thrombosis of the left leg. 17.History of section. 18.History of hysterectomy. 19.Remote history of nicotine dependence. 20.FULL CODE. RECOMMENDATIONS AND DISCUSSION: I recommend to continue current medications, continue to monitor, continue symptomatic treatment. Otherwise, at this time I would recommend to continue to monitor, supplement potassium, monitor closely. Repeat labs. Closely follow with multiple consultants. Further recommendations to follow. Dr. Manley will follow. MMODL / IJN: [id number] /
[2018-12-01] MEDS: CHOLECALCIFEROL 1,000 UNIT TAB PO SCH (17:20)
[2018-12-01] MEDS: ASPIRIN 81 MG PO SCH (20:43)
--- NOTE | 2018-12-01 23:12 | P.CONS ---
History of Present Illness - Reason for Consult Consult date: 12/01/18 Pneumonia antibiotics Requesting physician: Minnie Mujica - Chief Complaint Weakness and no blood pressure - History of Present Illness Patient is 83-year-old female with a past medical history significant for strangulated left upper quadrant Kellogg's hernia that had perforated into her subcu tissue. She underwent a bowel resection and hernia repair at that naa e and the wound was left open. She still has a chronic wound in the left upper quadrant which is currently being treated with wet-to-dry dressing changes patient also have a history of recurrent UTIs patient is currently resident of [facility], patient has been brought to the [facility] ER for evaluation of generalized weakness low blood pressure, the patient currently denies having any headaches and no chest pain or shortness of breath or cough no nausea no vomiting no rebound. No diarrhea patient did have a chest x-ray which shows low lung volumes and possible developing infiltrate at left lower lung patient did have many positive UA but no elevated white count the patient has been started on Levaquin and Macrobid and vancomycin and infectious disease was consulted for further recommendation regarding antibiotic therapy patient has an elevated will restart his most information has been obtained from the chart Review of Systems Positive points has been mentioned in HPI complete review could not be obtained because of the patient mental status Past Medical History Past Medical History: Atrial Fibrillation, Asthma, Chest Pain / Angina, Heart Failure, CVA/TIA, Deep Vein Thrombosis (DVT), GERD/Reflux Additional Past Medical History / Comment(s): hx ulcer, hiatal hernia. blood clot x 3 left leg, anemia, syncope,bruises easily History of Any Multi-Drug Resistant Organisms: None Reported Past Surgical History: Bladder Surgery, Section, Heart Catheterization, Hysterectomy, Joint Replacement Additional Past Surgical History / Comment(s): gastrectomy, stomach tumor removed, stomach stapling, surgery to reattach ureters, left knee replacement. recent hernia surgery october 2018 Past Anesthesia/Blood Transfusion Reactions: Motion Sickness Additional Past Anesthesia/Blood Transfusion Reaction / Comm: motion sickness in past Past Psychological History: No Psychological Hx Reported Smoking Status: Former smoker Past Alcohol Use History: None Reported Additional Past Alcohol Use History / Comment(s): smoked years ago socially; drinks 2 beers daily Past Drug Use History: None Reported - Past Family History Mother Family Medical History: Cancer Additional Family Medical History / Comment(s): "throat" [place] Medications and Allergies Home Medications Medication Instructions Recorded Confirmed Type Aspirin EC [Ecotrin Low Dose] 81 mg PO HS 09/06/18 11/30/18 History Furosemide [Lasix] 40 mg PO DAILY 09/06/18 11/30/18 History Meloxicam 15 mg PO DAILY 09/06/18 11/30/18 History rOPINIRole HCL [Requip] 2 mg PO BID 09/06/18 11/30/18 History Cholecalciferol [Vitamin D3 (25 1,000 unit PO DAILY@1700 11/15/18 11/30/18 History Mcg = 1000 Iu)] Acetaminophen Tab [Tylenol] 650 mg PO Q6HR PRN tab 11/26/18 11/30/18 Rx Apixaban [Eliquis] 10 mg PO BID #11 tab 11/26/18 11/30/18 Rx Nitrofurantoin Monohyd/M-Cryst 100 mg PO BID #14 cap 11/26/18 11/30/18 Rx [Macrobid] Pantoprazole [Protonix] 40 mg PO DAILY tablet. 11/26/18 11/30/18 Rx Apixaban [Eliquis] 5 mg PO DIRECTED 11/30/18 11/30/18 History Bisacodyl [Dulcolax] 10 mg RECTAL DAILY PRN 11/30/18 11/30/18 History Magnesium Hydroxide [Milk of 2,400 mg PO DAILY PRN 11/30/18 11/30/18 History Magnesia] Metolazone [Zaroxolyn] 2.5 mg PO DAILY 11/30/18 11/30/18 History Na Phos,M-B/Na Phos,Di-Ba [Fleet 133 ml RECTAL DAILY PRN 11/30/18 11/30/18 History Adult] Potassium Chloride ER [K-Dur 20] 20 meq PO DAILY 11/30/18 11/30/18 History Allergies Allergy/AdvReac Type Severity Reaction Status Date / Time hydromorphone HCl Allergy Itching Verified 11/30/18 08:13 [From Dilaudid] Penicillins Allergy Rash/Hives Verified 11/30/18 08:13 erythromycin base AdvReac Unknown Verified 11/30/18 08:13 [Erythromycin Base] flu vaccine Allergy Unknown Uncoded 11/30/18 08:13 Physical Exam Vitals: Vital Signs Temp Pulse Pulse Resp BP Pulse Ox 12/01/18 14:08 98 F 70 16 90/54 91 L 12/01/18 13:04 76 12/01/18 12:54 72 12/01/18 08:15 76 12/01/18 08:03 76 12/01/18 07:00 98.2 F 81 17 130/71 98 12/01/18 01:07 99.0 F 79 18 94/57 98 11/30/18 20:18 70 16 11/30/18 19:30 98.4 F 75 19 87/51 97 Intake and Output 12/01/18 12/01/18 12/01/18 06:59 14:59 22:59 Output Total 700 700 Balance -700 -700 Output: Urine 700 700 Other: Voiding Method Indwelling Catheter # Bowel Movements 1 Weight 59 kg GENERAL DESCRIPTION: An daily female lying in bed, no distress. No tachypnea or accessory muscle of respiration use. HEENT: Shows Pallor , no scleral icterus. Oral mucous membrane is dry. No pharyngeal erythema or thrush NECK: Trachea central, no thyromegaly. LUNGS: Unlabored breathing. Clear to auscultation anteriorly. No wheeze or crackle. HEART: S1, S2, regular rate and rhythm. No loud murmur ABDOMEN: Soft, left upper quadrant wound with no significant slough tissue surrounding redness and no foul-smelling drainage EXTREMITIES: No edema of feet. SKIN: No rash, no masses palpable. NEUROLOGICAL: The patient is awake, alert, oriented x2, mood and affect normal. Results CBC & Chem 7: 12/01/18 06:47 12/01/18 19:37 Labs: Abnormal Lab Results - Last 24 Hours (Table) 11/30/18 12/01/18 12/01/18 Range/Units 17:15 06:47 06:47 RBC 3.23 L (3.80-5.40) m/uL Hgb 9.2 L (11.4-16.0) gm/dL Hct 27.4 L (34.0-46.0) % Sodium 127 L (137-145) mmol/L Potassium 3.1 L (3.5-5.1) mmol/L Chloride 94 L (98-107) mmol/L BUN 18 H (7-17) mg/dL POC Glucose (mg/dL) 132 H (75-99) mg/dL Calcium 8.2 L (8.4-10.2) mg/dL Microbiology - Last 24 Hours (Table) 11/30/18 13:21 Blood Culture - Preliminary Blood No Growth after 24 hours Assessment and Plan Assessment: 1-patient admitted hospital with generalized weakness which is likely multifactorial possible dehydration or metabolic, clinical suspicious for underlying pneumonia in this patient currently with no significant pulmonary symptoms is breathing comfortably on room air no white count or any fever she did have mild positivity underlying degenerative entirely excluded 2-Patient with multiple antibiotics ALLERGIES that will limit the number of antibiotic safe to use (1) UTI (urinary tract infection) Current Visit: Yes Status: Acute Code(s): N39.0 - URINARY TRACT INFECTION, SITE NOT SPECIFIED SNOMED Code(s): 44177911 (2) Dehydration Current Visit: Yes Status: Acute Code(s): E86.0 - DEHYDRATION SNOMED Code(s): 59937610 Plan: 1-May continue short course of Levaquin while waiting for the cultures to finali ze 2-discontinue the vancomycin and Macrobid to decrease risk of nephrotoxicity 3-gentle IV fluid we will follow on clinical condition and culture to further adjust medication if needed Thank you for this consultation will follow this patient along with you Time with Patient: Greater than 30
[2018-12-02] MEDS: MELATONIN 3 MG TABLET PO SCH ×2 (03:27→23:52)
[2018-12-02] MEDS: LEVOTHYROXINE 25 MCG TAB PO SCH (05:44)
[2018-12-02 06:29] LABS: Basophils # (A) 0.1 k/uL (0-0.2); Basophils % (A) 1 %; Eosinophils # (A) 0.3 k/uL (0-0.7); Eosinophils % (A) 5 %; HGB 8.7 gm/dL (11.4-16.0); Lymphocytes # (A) 1.3 k/uL (1.0-4.8); Lymphocytes % (A) 22 %; MCH 27.3 pg (25.0-35.0); MCHC 32.3 g/dL (31.0-37.0); MCV 84.6 fL (80.0-100.0); Mean Platelet Volume 7.9; Monocytes # (A) 0.3 k/uL (0-1.0); Monocytes % (A) 4 %; Neutrophils # (A) 4.1 k/uL (1.3-7.7); Neutrophils % (A) 67 %; Platelet Count 260 k/uL (150-450); RBC 3.19 m/uL (3.80-5.40); RDW 15.2 % (11.5-15.5); WBC 6.1 k/uL (3.8-10.6)
[2018-12-02 06:39] LABS: Calcium 8.5 mg/dL (8.4-10.2)
[2018-12-02] MEDS: IPRATROPIUM-ALBUTEROL 3 ML NEB INHALATION SCH ×3 (09:00→20:09)
[2018-12-02] MEDS: PANTOPRAZOLE 40 MG TABLET PO SCH (10:56)
[2018-12-02] MEDS: FUROSEMIDE 40 MG TAB PO SCH ×2 (10:56→11:07)
[2018-12-02] MEDS: POTASSIUM CHLORIDE ER 20 MEQ TAB.ER PO SCH (10:56)
[2018-12-02] MEDS: APIXABAN 5 MG TAB PO SCH ×2 (10:57→20:59)
[2018-12-02] MEDS: METOLAZONE 2.5 MG TAB PO SCH (10:57)
[2018-12-02] MEDS: MELOXICAM 7.5 MG TAB PO SCH (10:57)
[2018-12-02] MEDS: LEVOFLOXACIN 750MG-D5W PMX 750 MG in DEXTROSE/WATER 1 150ML.BAG IVPB SCH (10:58)
[2018-12-02] MEDS: SODIUM CHLORIDE 0.9% 1,000 ML IV SCH (12:35)
--- NOTE | 2018-12-02 12:44 | P.PN ---
Subjective Progress Note Date: 12/02/18 This is an 83-year-old female admitted with left lower lobe pneumonia, severe hyponatremia, severe hypokalemia, possible acute UTI and multiple other medical issues. Chronic left upper quadrant and evaluated by surgery with no surgical intervention recommended at this time. Sodium currently 124, Lasix discontinued and IV fluids initiated. Currently denies cough. Maintained on IV antibiotics as per infectious disease. Afebrile, normal WBC .Potassium has normalized after receiving supplements. Objective - Vital Signs Vital signs: Vital Signs Temp 98.4 F 12/02/18 07:00 Pulse 84 12/02/18 09:13 Resp 16 12/02/18 07:00 BP 103/60 12/02/18 07:00 Pulse Ox 98 12/02/18 07:00 Intake & Output 12/01/18 12/02/18 12/02/18 18:59 06:59 18:59 Intake Total 250 Output Total 1100 Balance -1100 250 Weight 64 kg Intake: Oral 250 Output: Urine 1100 Uretheral (Rascon) 400 Other: Voiding Method Indwelling Catheter - Exam PHYSICAL EXAM: VITAL SIGNS: As above GENERAL: Sitting up in bed, no acute distress HEENT: Conjunctivae normal. eyes normal. Oral mucosa moist NECK: No JVD. No thyroid enlargement. No LNs CARDIOVASCULAR: S1, S2 regular.. No murmur RESPIRATION: Breath sounds diminished in the bases. Scattered rhonchi, no crackles. ABDOMEN: Soft, left upper quadrant chronic wound with surrounding redness, no drainage,No guarding. no masses palpable.Bowel sounds heard. LEGS: No edema. no swelling PSYCHIATRY: Alert and oriented X2, mood and affect normal. NERVOUS SYSTEM: Cranial N 2-12 grossly normal. Moves all 4 limbs. Diffuse weakness No focal deficits. Strength and sensation grossly intact.. Skin: no rash Lymphatic system. No LN neck axilla - Labs CBC & Chem 7: 12/02/18 06:08 12/02/18 06:08 Labs: Abnormal Lab Results - Last 24 Hours (Table) 12/02/18 12/02/18 Range/Units 06:08 06:08 RBC 3.19 L (3.80-5.40) m/uL Hgb 8.7 L (11.4-16.0) gm/dL Hct 27.0 L (34.0-46.0) % Sodium 124 L (137-145) mmol/L Chloride 92 L (98-107) mmol/L BUN 19 H (7-17) mg/dL Glucose 107 H (74-99) mg/dL Microbiology - Last 24 Hours (Table) 11/30/18 13:21 Blood Culture - Preliminary Blood No Growth after 24 hours Assessment and Plan Assessment: -Acute left-sided pneumonia, possibly healthcare associated pneumonia -Severe hyponatremia -Severe hypokalemia, resolved -TMs atrial fibrillation -Possible acute UTI present on admission -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 Lasix has been placed on hold, IV fluids initiated. Nephrology consulted. [place] information being obtained regarding patient's Rascon cathete r, possibly could be discontinued with bladder scanned/post void residuals- discussed with RN. Continue on IV antibiotics as per infectious disease. Cultures pending. Further recommendations to follow. The impression and plan of care has been dictated as directed. : I performed a history and examination of this patient, discussed the same with the dictator. I agree with the dictator's note ,documented as a scribe. Any additional findings or plans will be noted.
[2018-12-02] MEDS: CHOLECALCIFEROL 1,000 UNIT TAB PO SCH (17:33)
--- NOTE | 2018-12-02 19:54 | PN ---
PROGRESS NOTE DATE OF SERVICE: 12/02/2018 REASON FOR FOLLOWUP: 1. Left upper abdominal wound. 2. Question of UTI versus pneumonia. INTERVAL HISTORY: The patient is currently afebrile. The patient has been breathing comfortably on room air. Denies having any chest pain or any cough. No nausea, no vomiting, no abdominal pain or diarrhea. PHYSICAL EXAMINATION: Blood pressure is 82/49 with a pulse of 93, temperature 98.2. She is 96% on room air. General description is an elderly female lying in bed in no distress. RESPIRATORY SYSTEM: Unlabored breathing. Clear to auscultation anteriorly. HEART: S1, S2. Regular rate and rhythm. ABDOMEN: Soft. No tenderness. EXTREMITIES: No edema of the feet. LABS: Blood culture has been negative so far. Hemoglobin 8.7, white count 6.9, BUN of 19, creatinine 0.78. DIAGNOSTIC IMPRESSION AND PLAN: Patient admitted to hospital with hypertension which is likely multifactorial, possibly drug-related or dehydration. Clinical suspicion low for underlying bacterial pneumonia in this patient with no fever or elevated white count and no respiratory symptoms. UTI not excluded, as the patient did have positive UA with cultures currently pending. Patient is currently on Levaquin; to continue while monitoring clinical course closely. Continue with supportive care. MMODL / IJN: [id number] /
[2018-12-02] MEDS: HYDROcodone/APAP 5-325MG 1 EACH TAB PO PRN (20:56)
[2018-12-02] MEDS: ASPIRIN 81 MG PO SCH (20:58)
[2018-12-03] MEDS ORDERED: SODIUM CHLORIDE 0.9% 500 ML 250 ML IV ONE (03:13)
[2018-12-03 03:25] LABS: African American GFR (CKD) 68 (>60 ml/min/1.73 sqM); Anion Gap 8 mmol/L; Blood Urea Nitrogen 19 mg/dL (7-17); C Reactive Protein <5.0 mg/L (<10.0); Calcium 8.2 mg/dL (8.4-10.2); Carbon Dioxide 22 mmol/L (22-30); Chloride 95 mmol/L (98-107); Glucose 106 mg/dL (74-99); Potassium 3.4 mmol/L (3.5-5.1); Sodium 125 mmol/L (137-145)
[2018-12-03 03:27] LABS: Basophils % (A) 1 %; Eosinophils # (A) 0.3 k/uL (0-0.7); Eosinophils % (A) 4 %; HCT 24.5 % (34.0-46.0); HGB 8.1 gm/dL (11.4-16.0); Lymphocytes # (A) 1.6 k/uL (1.0-4.8); Lymphocytes % (A) 26 %; MCH 28.1 pg (25.0-35.0); MCHC 33.1 g/dL (31.0-37.0); MCV 84.9 fL (80.0-100.0); Mean Platelet Volume 7.9; Monocytes # (A) 0.3 k/uL (0-1.0); Monocytes % (A) 4 %; Neutrophils # (A) 3.8 k/uL (1.3-7.7); Neutrophils % (A) 63 %; Platelet Count 257 k/uL (150-450); RBC 2.88 m/uL (3.80-5.40); WBC 6.1 k/uL (3.8-10.6)
[2018-12-03] MEDS: SODIUM CHLORIDE 0.9% 1,000 ML IV SCH ×2 (04:11→20:53)
[2018-12-03] MEDS: LEVOTHYROXINE 25 MCG TAB PO SCH (06:05)
[2018-12-03] MEDS: HYDROcodone/APAP 5-325MG 1 EACH TAB PO PRN ×2 (06:17→16:20)
[2018-12-03] MEDS ORDERED: Potassium Replacement Protocol 1 EACH MISC MISCELLANE PRN (07:28)
[2018-12-03] MEDS ORDERED: Magnesium Replacement Protocol 1 EACH MISC MISCELLANE PRN (07:28)
[2018-12-03] MEDS: METOLAZONE 2.5 MG TAB PO SCH ×2 (07:49→07:50)
[2018-12-03] MEDS: PANTOPRAZOLE 40 MG TABLET PO SCH (07:49)
[2018-12-03] MEDS: POTASSIUM CHLORIDE ER 20 MEQ TAB.ER PO SCH (07:50)
[2018-12-03] MEDS: APIXABAN 5 MG TAB PO SCH ×2 (07:50→20:56)
[2018-12-03] MEDS: MELOXICAM 7.5 MG TAB PO SCH (07:50)
[2018-12-03] MEDS: IPRATROPIUM-ALBUTEROL 3 ML NEB INHALATION SCH ×3 (08:15→21:21)
--- NOTE | 2018-12-03 11:19 | P.PN ---
Subjective Progress Note Date: 12/03/18 This is an 83-year-old female admitted with left lower lobe pneumonia, severe hyponatremia, severe hypokalemia, possible acute UTI and multiple other medical issues. Chronic left upper quadrant and evaluated by surgery with no surgical intervention recommended at this time. Sodium currently 124, Lasix discontinued and IV fluids initiated. Currently denies cough. Maintained on IV antibiotics as per infectious disease. Afebrile, normal WBC .Potassium has normalized after receiving supplements. 12/03/2018 hypotensive during the night with systolic pressures down into the mid 70s accompanied by chest pain. A-Team called. Cardiology consulted. Recheck of labs reported hemoglobin 8.1. Received 250 mL fluid bolus, 1 unit of packed RBCs. Troponins negative 1. Potassium 3.4, receiving potassium supplements. This morning requiring 2 L nasal cannula O2 to maintain O2 sats in the 90s. Maintained on IV sodium chloride at 60 MLS per hour. Sodium 125. BUN 19, creatinine 0.9. Chest pain subsided, no palpitations. Systolic blood pressure improved, currently in the 90s. Denies lightheadedness dizziness or focal deficits. Afebrile, normal WBC. Objective - Vital Signs Vital signs: Vital Signs Temp 98.8 F 12/03/18 09:50 Pulse 92 12/03/18 09:50 Resp 16 12/03/18 09:50 BP 92/54 12/03/18 09:50 Pulse Ox 96 12/03/18 06:43 Intake & Output 12/02/18 12/03/18 12/03/18 18:59 06:59 18:59 Intake Total 730 310 Output Total 1000 1000 Balance -1000 -270 310 Weight 65 kg Intake: Intake, IV Titration 730 Amount Sodium Chloride 0.9% 1, 480 000 ml @ 60 mls/hr IV . [id number] [facility] Rx#:[id number] Sodium Chloride 0.9% 500 250 ml 250 ml @ 999 mls/hr IV .Q16M ONE Rx#:[id number] Blood Product 0 310 Rc As-1 Unit 0 310 [id number] Output: Urine 1000 1000 Other: Voiding Method Indwelling Catheter Indwelling Catheter # Voids 2 - Exam PHYSICAL EXAM: VITAL SIGNS: As above GENERAL: Sitting up in bed, no acute distress. Mild confusion, baseline. HEENT: Conjunctivae normal. eyes normal. Oral mucosa moist NECK: No JVD. No thyroid enlargement. No LNs CARDIOVASCULAR: S1, S2 regular. No murmur RESPIRATION: Nonlabored. Breath sounds diminished in the bases. Scattered rhonchi, no crackles. ABDOMEN: Soft, left upper quadrant chronic wound with surrounding redness, no drainage,No guarding. no masses palpable.Bowel sounds heard. LEGS: No edema. no swelling PSYCHIATRY: Alert and oriented X2, mood and affect normal. NERVOUS SYSTEM: Cranial N 2-12 grossly normal. Moves all 4 limbs. Diffuse weakness, No focal deficits. Skin: no rash - Labs CBC & Chem 7: 12/03/18 02:35 12/03/18 02:35 Labs: Abnormal Lab Results - Last 24 Hours (Table) 12/03/18 12/03/18 12/03/18 Range/Units 02:35 02:35 02:35 RBC 2.88 L (3.80-5.40) m/uL Hgb 8.1 L (11.4-16.0) gm/dL Hct 24.5 L (34.0-46.0) % Sodium 125 L (137-145) mmol/L Potassium 3.4 L (3.5-5.1) mmol/L Chloride 95 L (98-107) mmol/L BUN 19 H (7-17) mg/dL Glucose 106 H (74-99) mg/dL Calcium 8.2 L (8.4-10.2) mg/dL Crossmatch See Detail Microbiology - Last 24 Hours (Table) 11/30/18 13:21 Blood Culture - Preliminary Blood No Growth after 48 hours Assessment and Plan Assessment: -Acute left-sided pneumonia, possibly healthcare associated pneumonia -Severe hyponatremia -Severe hypokalemia, -TMs atrial fibrillation -Possible acute UTI present on admission, secondary to Rascon catheter from ECF -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 Echo, chest x-ray, magnesium level ordered. Cardiology and nephrology consults in place with recommendations pending. Gentle IV fluid hydration. [place] information IV antibiotics as per infectious disease. Cultures pending. Further recommendations to follow. The impression and plan of care has been dictated as directed. : I performed a history and examination of this patient, discussed the same with the dictator. I agree with the dictator's note ,documented as a scribe. Any additional findings or plans will be noted.
[2018-12-03] MEDS ORDERED: POTASSIUM CHLORIDE ER 20 MEQ TAB.ER PO STA (12:14)
--- NOTE | 2018-12-03 12:17 | P.NPCON ---
History of Present Illness - Reason for Consult hyponatremia - History of Present Illness Reason for consultation: Hyponatremia History of present illness: Patient is a 83-year-old female seen in consultation for hyponatremia. Patient resides at an [facility]. Patient did sustain a fall last week and was down for several hours. Patient is also progressively getting weaker. Blood pressures have also been on the lower side. Patient also has a Rascon catheter in place. Urine output is good. Renal function is normal. Patient's sodium level was 128 on admission and did drop down to 124 as of yesterday. It is up to 125 today. She denies drinking excess amounts of water. Patient has been maintained on Lasix as well as metolazone as of yesterday. She's now on normal saline at 60 mL an hour. No vomiting or diarrhea. She is on Mobic once daily as well. No edema. No evidence of fluid overload noted on chest x-ray. Blood pressure has been on the lower side in the systolic 80s to 90s since admission. Echocardiogram was done this morning. Vital signs are stable. General: The patient appeared well nourished and normally developed. HEENT: Head exam is unremarkable. Neck is without jugular venous distension. LUNGS: Lungs are clear to auscultation and percussion. Breath sounds decreased. HEART: Rate and Rhythm are regular. First and second heart sounds normal. No murmurs, rubs or gallops. ABDOMEN: Abdominal exam reveals normal bowel sounds. Non-tender and non- distended. No evidence of peritonitis. EXTREMITITES: No clubbing, cyanosis, or edema. Past Medical History Past Medical History: Atrial Fibrillation, Asthma, Chest Pain / Angina, Heart Fa ilure, CVA/TIA, Deep Vein Thrombosis (DVT), GERD/Reflux Additional Past Medical History / Comment(s): hx ulcer, hiatal hernia. blood clot x 3 left leg, anemia, syncope,bruises easily History of Any Multi-Drug Resistant Organisms: None Reported Past Surgical History: Bladder Surgery, Section, Heart Catheterization, Hysterectomy, Joint Replacement Additional Past Surgical History / Comment(s): gastrectomy, stomach tumor removed, stomach stapling, surgery to reattach ureters, left knee replacement. recent hernia surgery october 2018 Past Anesthesia/Blood Transfusion Reactions: Motion Sickness Additional Past Anesthesia/Blood Transfusion Reaction / Comment(s): motion sickness in past Past Psychological History: No Psychological Hx Reported Smoking Status: Former smoker Past Alcohol Use History: None Reported Additional Past Alcohol Use History / Comment(s): smoked years ago socially; drinks 2 beers daily Past Drug Use History: None Reported - Past Family History Mother Family Medical History: Cancer Additional Family Medical History / Comment(s): "throat" [place] Medications and Allergies Home Medications Medication Instructions Recorded Confirmed Type Aspirin EC [Ecotrin Low Dose] 81 mg PO HS 09/06/18 11/30/18 History Furosemide [Lasix] 40 mg PO DAILY 09/06/18 11/30/18 History Meloxicam 15 mg PO DAILY 09/06/18 11/30/18 History rOPINIRole HCL [Requip] 2 mg PO BID 09/06/18 11/30/18 History Cholecalciferol [Vitamin D3 (25 1,000 unit PO DAILY@1700 11/15/18 11/30/18 History Mcg = 1000 Iu)] Acetaminophen Tab [Tylenol] 650 mg PO Q6HR PRN tab 11/26/18 11/30/18 Rx Apixaban [Eliquis] 10 mg PO BID #11 tab 11/26/18 11/30/18 Rx Nitrofurantoin Monohyd/M-Cryst 100 mg PO BID #14 cap 11/26/18 11/30/18 Rx [Macrobid] Pantoprazole [Protonix] 40 mg PO DAILY tablet. 11/26/18 11/30/18 Rx Apixaban [Eliquis] 5 mg PO DIRECTED 11/30/18 11/30/18 History Bisacodyl [Dulcolax] 10 mg RECTAL DAILY PRN 11/30/18 11/30/18 History Magnesium Hydroxide [Milk of 2,400 mg PO DAILY PRN 11/30/18 11/30/18 History Magnesia] Metolazone [Zaroxolyn] 2.5 mg PO DAILY 11/30/18 11/30/18 History Na Phos,M-B/Na Phos,Di-Ba [Fleet 133 ml RECTAL DAILY PRN 11/30/18 11/30/18 History Adult] Potassium Chloride ER [K-Dur 20] 20 meq PO DAILY 11/30/18 11/30/18 History Allergies Allergy/AdvReac Type Severity Reaction Status Date / Time hydromorphone HCl Allergy Itching Verified 11/30/18 08:13 [From Dilaudid] Penicillins Allergy Rash/Hives Verified 11/30/18 08:13 erythromycin base AdvReac Unknown Verified 11/30/18 08:13 [Erythromycin Base] flu vaccine Allergy Unknown Uncoded 11/30/18 08:13 Physical Exam Vitals: Vital Signs Temp Pulse Pulse Resp BP BP Pulse Ox 12/03/18 09:50 98.8 F 92 16 92/54 12/03/18 08:25 77 12/03/18 08:15 76 12/03/18 08:00 81 16 12/03/18 06:43 97.4 F L 81 18 108/71 96 12/03/18 06:27 97.7 F 79 20 100/64 97 12/03/18 06:13 97.8 F 75 20 94/57 12/03/18 06:03 97.9 F 83 18 95/58 12/03/18 03:32 18 12/03/18 03:03 96/50 12/03/18 02:31 98.1 F 81 17 75/41 97 12/03/18 01:57 78/40 12/03/18 00:20 20 12/02/18 22:05 84 20 90/50 98 12/02/18 21:52 80 20 89/48 99 12/02/18 20:50 97.6 F 98 20 94/54 98 12/02/18 20:30 20 12/02/18 20:24 80 12/02/18 20:10 80 12/02/18 15:00 98.2 F 93 16 82/49 96 12/02/18 13:51 80 12/02/18 13:43 84 Intake and Output 12/02/18 12/03/18 12/03/18 22:59 06:59 14:59 Intake Total 730 310 Output Total 700 800 Balance -700 -70 310 Intake: Intake, IV Titration 730 Amount Sodium Chloride 0.9% 1, 480 000 ml @ 60 mls/hr IV . [id number] [facility] Rx#:[id number] Sodium Chloride 0.9% 500 250 ml 250 ml @ 999 mls/hr IV .Q16M ONE Rx#:[id number] Blood Product 0 310 Rc As-1 Unit 0 310 [id number] Output: Urine 700 800 Other: Voiding Method Indwelling Catheter Indwelling Catheter Indwelling Catheter Weight 65 kg Results - Lab Results Most recent lab results Calcium 8.2 mg/dL (8.4-10.2) L 12/03/18 02:35 Magnesium 1.7 mg/dL (1.6-2.3) 12/03/18 02:35 12/03/18 02:35 12/03/18 02:35 Assessment and Plan Plan: Assessment: 1. Hypovolemic hyponatremia, further worsened with the use of thiazide diuretic, improving with IV hydration. Sodium level 125 today. Patient is also on Mobic which can induce hyponatremia. Diuretics were discontinued yesterday. 2. Hypokalemia secondary to diuresis. 3. Anemia. Rule out iron deficiency. 4. Recent small bowel resection and perforated hernia repair. 5. Possible UTI versus pneumonia maintained on antibiotics. Infectious disease following. Plan: Discontinue metolazone. Maintain normal saline. Maintain 1200 mL fluid restriction. Replace potassium. 40 mEq today. Check serum and urine osmolality and random urine sodium. Discontinue Mobic. Repeat electrolytes in the morning. Follow-up cultures. Follow-up echocardiogram. Check TSH, cortisol and uric acid level. Thank you for the consultation. I will continue to follow the patient with you during her hospital stay.
--- NOTE | 2018-12-03 13:50 | P.CRDCN ---
History of Present Illness History of present illness: This is a pleasant 83-year-old female past medical history significant for recently diagnosis of a DVT, hernia surgery with open wound LUQ, multiple abdominal surgeries, chronic anemia and asthma. She follows in the office with Dr. العراقي. We have been asked to see her in consultation for chest pain. She initially presented to the hospital 11/30/2018 with symptoms of generalized w eakness. She is currently undergoing a transfusion of packed red blood cells. She is somewhat confused at baseline and is unsure why she is getting the transfusion or if she is actively bleeding. Information is obtained from the medical record and nursing staff. She was recently diagnosed with left lower extremity partially occlusive DVT noted November 23 of this year and is maintained on Eliquis. She apparently was complaining of left anterior shoulder discomfort last evening. She states it felt tight. There was no radiation down the arm, into the back, neck or jaw. She doesn't recall feeling short of breath, dizziness, nauseated, diaphoretic or having palpitations. Currently she is chest pain free. Initial EKG is interpreted as a-fib, however it is actually sinus with first degree AV block. Repeat EKG again shows sinus with no acute ST or T- wave abnormalities. Initial chest x-ray on admission revealed a possible developing nodule infiltrate in the left lower lung. She is maintained on oral antibiotics. Laboratory data reviewed, WBC 6.1, hemoglobin 8.1, platelets 257, sodium 125, potassium 3.4, creatinine 0.9, cardiac enzymes negative 2. Current cardiac medications include aspirin 81 mg daily, Lasix 40 mg daily, Zaroxolyn 2.5 mg daily, Eliquis 5 mg twice a day. At the time of my exam: CONSTITUTIONAL: Denies fever. Denies chills. EYES: Denies blurred vision. Denies vision changes. Denies eye pain. EARS, NOSE, MOUTH & THROAT: Denies headache. Denies sore throat. Denies ear pain. CARDIOVASCULAR: Denies chest pain. Denies shortness of breath. Denies orthopnea. Denies PND. Denies palpitations. RESPIRATORY: Denies cough. GASTROINTESTINAL: Denies abdominal pain. Denies diarrhea. Denies constipation. Denies nausea. Denies vomiting. MUSCULOSKELETAL: Denies myalgias. INTEGUMENTARY: Denies pruitis. Denies rash. NEUROLOGIC: Denies numbness. Denies tingling. Denies weakness. PSYCHIATRIC: Denies anxiety. Denies depression. ENDOCRINE: Denies fatigue. Denies weight change. Denies polydipsia. Denies polyurina. GENITOURINARY: Denies burning, hematuria or urgency with micturation. HEMATOLOGIC: Denies history of anemia. Denies bleeding. Blood pressure 92/54 heart rate 79 afebrile maintaining oxygen saturation on room GENERAL: This is a 83-year-old female in no apparent distress at the time of my examination. HEENT: Head is atraumatic, normocephalic. Pupils are equal, round. Sclerae anicteric. Conjunctivae are clear. Mucous membranes of the mouth are moist. Neck is supple. There is no jugular venous distention. No carotid bruit is heard. LUNGS: Clear to auscultation no wheezes, rales or rhonchi. No chest wall tenderness is noted on palpation or with deep breathing. HEART: Regular rate and rhythm with systolic ejection murmur at the left sternal border and apex, no rubs or gallops. S1 and S2 heard. ABDOMEN: Soft, nontender. Bowel sounds are heard. No organomegaly noted. EXTREMITIES: No evidence of peripheral edema and no calf tenderness noted. VASCULAR: Radial and dorsalis pedis pulses palpated, no evidence of clubbing. NEUROLOGIC: Patient is awake, alert and oriented to self. ASSESSMENT Chest pain, atypical for angina with some pleuritic factors. An acute coronary event has been ruled out. Pneumonia Hyponatremia Urinary tract infection PLAN An acute coronary event has been ruled out. Obtain 2D echocardiogram and doppler study to assess cardiac structure and function. Symptoms are atypical for angina. Hold Zaroxolyn secondary to hyponatremia and hypotension. Thank you kindly for this consultation. Nurse Practitioner note has been reviewed, I agree with a documented findings and plan of care. Patient was seen and examined. Past Medical History Past Medical History: Atrial Fibrillation, Asthma, Chest Pain / Angina, Heart Failure, CVA/TIA, Deep Vein Thrombosis (DVT), GERD/Reflux Additional Past Medical History / Comment(s): hx ulcer, hiatal hernia. blood cl ot x 3 left leg, anemia, syncope,bruises easily History of Any Multi-Drug Resistant Organisms: None Reported Past Surgical History: Bladder Surgery, Section, Heart Catheterization, Hysterectomy, Joint Replacement Additional Past Surgical History / Comment(s): gastrectomy, stomach tumor removed, stomach stapling, surgery to reattach ureters, left knee replacement. recent hernia surgery october 2018 Past Anesthesia/Blood Transfusion Reactions: Motion Sickness Additional Past Anesthesia/Blood Transfusion Reaction / Comment(s): motion sickness in past Past Psychological History: No Psychological Hx Reported Smoking Status: Former smoker Past Alcohol Use History: None Reported Additional Past Alcohol Use History / Comment(s): smoked years ago socially; drinks 2 beers daily Past Drug Use History: None Reported - Past Family History Mother Family Medical History: Cancer Additional Family Medical History / Comment(s): "throat" [place] Medications and Allergies Home Medications Medication Instructions Recorded Confirmed Type Aspirin EC [Ecotrin Low Dose] 81 mg PO HS 09/06/18 11/30/18 History Furosemide [Lasix] 40 mg PO DAILY 09/06/18 11/30/18 History Meloxicam 15 mg PO DAILY 09/06/18 11/30/18 History rOPINIRole HCL [Requip] 2 mg PO BID 09/06/18 11/30/18 History Cholecalciferol [Vitamin D3 (25 1,000 unit PO DAILY@1700 11/15/18 11/30/18 History Mcg = 1000 Iu)] Acetaminophen Tab [Tylenol] 650 mg PO Q6HR PRN tab 11/26/18 11/30/18 Rx Apixaban [Eliquis] 10 mg PO BID #11 tab 11/26/18 11/30/18 Rx Nitrofurantoin Monohyd/M-Cryst 100 mg PO BID #14 cap 11/26/18 11/30/18 Rx [Macrobid] Pantoprazole [Protonix] 40 mg PO DAILY tablet. 11/26/18 11/30/18 Rx Apixaban [Eliquis] 5 mg PO DIRECTED 11/30/18 11/30/18 History Bisacodyl [Dulcolax] 10 mg RECTAL DAILY PRN 11/30/18 11/30/18 History Magnesium Hydroxide [Milk of 2,400 mg PO DAILY PRN 11/30/18 11/30/18 History Magnesia] Metolazone [Zaroxolyn] 2.5 mg PO DAILY 11/30/18 11/30/18 History Na Phos,M-B/Na Phos,Di-Ba [Fleet 133 ml RECTAL DAILY PRN 11/30/18 11/30/18 History Adult] Potassium Chloride ER [K-Dur 20] 20 meq PO DAILY 11/30/18 11/30/18 History Allergies Allergy/AdvReac Type Severity Reaction Status Date / Time hydromorphone HCl Allergy Itching Verified 11/30/18 08:13 [From Dilaudid] Penicillins Allergy Rash/Hives Verified 11/30/18 08:13 erythromycin base AdvReac Unknown Verified 11/30/18 08:13 [Erythromycin Base] flu vaccine Allergy Unknown Uncoded 11/30/18 08:13 Physical Exam Vitals: Vital Signs Temp Pulse Pulse Resp BP BP Pulse Ox 12/03/18 08:25 77 12/03/18 08:15 76 12/03/18 06:43 97.4 F L 81 18 108/71 96 12/03/18 06:27 97.7 F 79 20 100/64 97 12/03/18 06:13 97.8 F 75 20 94/57 12/03/18 06:03 97.9 F 83 18 95/58 12/03/18 03:32 18 12/03/18 03:03 96/50 12/03/18 02:31 98.1 F 81 17 75/41 97 12/03/18 01:57 78/40 12/03/18 00:20 20 12/02/18 22:05 84 20 90/50 98 12/02/18 21:52 80 20 89/48 99 12/02/18 20:50 97.6 F 98 20 94/54 98 12/02/18 20:30 20 12/02/18 20:24 80 12/02/18 20:10 80 12/02/18 15:00 98.2 F 93 16 82/49 96 12/02/18 13:51 80 12/02/18 13:43 84 Intake and Output 12/02/18 12/03/18 12/03/18 22:59 06:59 14:59 Intake Total 730 Output Total 700 800 Balance -700 -70 Intake: Intake, IV Titration 730 Amount Sodium Chloride 0.9% 1, 480 000 ml @ 60 mls/hr IV . [id number] [facility] Rx#:[id number] Sodium Chloride 0.9% 500 250 ml 250 ml @ 999 mls/hr IV .Q16M ONE Rx#:[id number] Blood Product 0 Rc As-1 Unit 0 [id number] Output: Urine 700 800 Other: Voiding Method Indwelling Catheter Indwelling Catheter Weight 65 kg Results 12/03/18 02:35 12/03/18 02:35 Cardiac Enzymes 12/02/18 Range/Units 21:49 Troponin I <0.012 (0.000-0.034) ng/mL CBC 12/03/18 Range/Units 02:35 WBC 6.1 (3.8-10.6) k/uL RBC 2.88 L (3.80-5.40) m/uL Hgb 8.1 L (11.4-16.0) gm/dL Hct 24.5 L (34.0-46.0) % Plt Count 257 (150-450) k/uL Comprehensive Metabolic Panel 12/03/18 Range/Units 02:35 Sodium 125 L (137-145) mmol/L Potassium 3.4 L (3.5-5.1) mmol/L Chloride 95 L (98-107) mmol/L Carbon Dioxide 22 (22-30) mmol/L BUN 19 H (7-17) mg/dL Creatinine 0.90 (0.52-1.04) mg/dL Glucose 106 H (74-99) mg/dL Calcium 8.2 L (8.4-10.2) mg/dL Current Medications Generic Name Dose Route Start Last Admin Trade Name Freq PRN Reason Stop Dose Admin Acetaminophen 650 mg 11/30/18 13:06 Tylenol Tab PO Q6HR PRN Mild Pain or Fever > 100.5 Hydrocodone Bitart/Acetaminophen 1 each 11/30/18 08:58 12/03/18 06:17 [place] 5-325 PO 1 each Q4HR PRN Administration Moderate Pain Albuterol/Ipratropium 3 ml 11/30/18 20:00 12/03/18 08:15 Duoneb 0.5 Mg-3 Mg/3 Ml Soln INHALATION 3 ml RT-TID JAILENE Administration Albuterol/Ipratropium 3 ml 11/30/18 13:11 Duoneb 0.5 Mg-3 Mg/3 Ml Soln INHALATION RT-TID PRN Shortness Of Breath Or Wheezing Apixaban 10 mg 11/30/18 21:00 12/03/18 07:50 Eliquis PO 12/03/18 12:00 10 mg BID JAILENE Administration Apixaban 5 mg 12/03/18 21:00 Eliquis PO BID JAILENE Aspirin 81 mg 11/30/18 21:00 12/02/18 20:58 Aspirin PO 81 mg HS JAILENE Administration Bisacodyl 10 mg 11/30/18 13:06 Dulcolax RECTAL DAILY PRN Constipation Cholecalciferol 1,000 unit 11/30/18 17:00 12/02/18 17:33 Vitamin D3 (25 Mcg = 1000 Iu) PO 1,000 unit DAILY@1700 JAILENE Administration Sodium Chloride 1,000 mls @ 60 mls/hr 12/02/18 11:00 12/03/18 04:11 Saline 0.9% IV 60 mls/hr .[id number] JAILENE Administration Levofloxacin 750 mg 12/04/18 10:00 Levaquin PO Q48H JAILENE Levothyroxine Sodium 25 mcg 12/01/18 06:30 12/03/18 06:05 Synthroid PO 25 mcg DAILY@0630 JAILENE Administration Magnesium Hydroxide 2,400 mg 11/30/18 13:06 Milk Of Magnesia PO DAILY PRN Constipation Melatonin 3 mg 12/01/18 21:00 12/02/18 23:52 Melatonin PO 3 mg HS JAILENE Administration Meloxicam 15 mg 12/01/18 09:00 12/03/18 07:50 Mobic PO 15 mg DAILY JAILENE Administration Metolazone 2.5 mg 12/01/18 09:00 12/03/18 07:50 Zaroxolyn PO 2.5 mg DAILY JAILENE Administration Miscellaneous Information 1 each 11/30/18 18:59 Potassium Per Protocol MISCELLANE DAILY PRN Per Protocol Protocol Miscellaneous Information 1 each 12/03/18 07:28 Magnesium Per Protocol MISCELLANE DAILY PRN Per Protocol Protocol Miscellaneous Information 1 each 12/03/18 07:28 Potassium Per Protocol MISCELLANE DAILY PRN Per Protocol Protocol Naloxone HCl 0.2 mg 11/30/18 08:58 Narcan IV Q2M PRN Opioid Reversal Pantoprazole Sodium 40 mg 12/01/18 07:30 12/03/18 07:49 Protonix PO 40 mg [id number] JAILENE Administration Potassium Chloride 20 meq 12/01/18 09:00 12/03/18 07:50 K-Dur 20 PO 20 meq DAILY JAILENE Administration Ropinirole HCl 2 mg 11/30/18 21:00 12/03/18 08:04 Requip PO 2 mg BID JAILENE Administration Sodium Biphosphate/Sodium Phosphate 133 ml 11/30/18 13:06 Fleet Adult RECTAL DAILY PRN Constipation Intake and Output 12/02/18 12/03/18 12/03/18 22:59 06:59 14:59 Intake Total 730 Output Total 700 800 Balance -700 -70 Intake: Intake, IV Titration 730 Amount Sodium Chloride 0.9% 1, 480 000 ml @ 60 mls/hr IV . [id number] JAILENE Rx#:[id number] Sodium Chloride 0.9% 500 250 ml 250 ml @ 999 mls/hr IV .Q16M ONE Rx#:[id number] Blood Product 0 Rc As-1 Unit 0 [id number] Output: Urine 700 800 Other: Voiding Method Indwelling Catheter Indwelling Catheter Weight 65 kg 12/03/18 02:35 12/03/18 02:35
--- NOTE | 2018-12-03 14:55 | XR ---
EXAMINATION TYPE: XR chest 2V DATE OF EXAM: 12/03/2018 COMPARISON: 11/30/2018 INDICATION: Hypoxia TECHNIQUE: Frontal and lateral views of the chest are obtained. FINDINGS: The heart size is normal. The pulmonary vasculature is normal. The lungs are clear. IMPRESSION: 1. No acute pulmonary process.
[2018-12-03] MEDS: CHOLECALCIFEROL 1,000 UNIT TAB PO SCH (16:20)
--- NOTE | 2018-12-03 16:40 | PN ---
PROGRESS NOTE DATE OF SERVICE: 12/03/2018 REASON FOR FOLLOWUP: 1. Left upper abdominal wound. 2. Possible UTI. INTERVAL HISTORY: The patient is currently afebrile. The patient has been breathing comfortably. The patient denies having any chest pain or any cough. No nausea, no vomiting. No abdominal pain. No diarrhea. PHYSICAL EXAMINATION: Blood pressure 92/54 with a pulse of 78, temperature 98.8. General description is an elderly female lying in bed in no distress. RESPIRATORY SYSTEM: Unlabored breathing. Clear to auscultation anteriorly. HEART: S1, S2. Regular rate and rhythm. ABDOMEN: Soft. No tenderness. EXTREMITIES: No edema of the feet. LABS/IMAGING: Chest x-ray this morning negative for any acute infiltrate. Hemoglobin 8.1, white count 6.9, BUN of 19, creatinine 0.90. DIAGNOSTIC IMPRESSION AND PLAN: Patient admitted to hospital with hypertension, weakness, which is likely multifactorial, with a possible component of urinary tract infection. Clinically doubt pneumonia, as no respiratory symptoms. Chest x-ray this morning is negative as well. Plan at this time is to continue short course of oral Levaquin while waiting for the urine culture to finalize. Continue with supportive care. MMODL / IJN: [id number] /
[2018-12-03] MEDS: ASPIRIN 81 MG PO SCH (20:56)
[2018-12-03] MEDS: MELATONIN 3 MG TABLET PO SCH (20:56)
[2018-12-04 01:18] LABS: Iron Saturation 64.9 (12.00-45.00)
[2018-12-04] MEDS: LEVOTHYROXINE 25 MCG TAB PO SCH (05:51)
--- NOTE | 2018-12-04 06:18 | ECHOF ---
Referral Reason:cp MEASUREMENTS -------- HEIGHT: 154.9 cm WEIGHT: 64.9 kg BP: 108/71 RVIDd: 3.5 cm (< 3.3) IVSd: 1.3 cm (0.6 - 1.1) LVIDd: 3.2 cm (3.9 - 5.3) LVPWd: 1.2 cm (0.6 - 1.1) IVSs: 1.8 cm LVIDs: 2.2 cm LVPWs: 1.6 cm LA Diam: 3.7 cm (2.7 - 3.8) LAESV Index (A-L): 43.70 ml/m Ao Diam: 3.0 cm (2.0 - 3.7) AV Cusp: 2.0 cm (1.5 - 2.6) MV EXCURSION: 12.907 mm (> 18.000) MV EF SLOPE: 36 mm/s (70 - 150) EPSS: 1.3 cm MV E Leonardo: 0.91 m/s MV DecT: 344 ms MV A Leonardo: 1.12 m/s MV E/A Ratio: 0.81 AV maxP.27 mmHg AV meanP.98 mmHg RAP: 5.00 mmHg RVSP: 30.47 mmHg FINDINGS -------- This was a technically adequate study. The left ventricular size is normal. There is mild concentric left ventricular hypertrophy. Overa ll left ventricular systolic function is normal with, an EF between 65 - 70 %. The right ventricle is mildly enlarged. LA is severely dilated >40 ml/m2 The right atrium is normal in size. Lipomatous Hypertrophy of the atrial septum is present There is mild aortic valve sclerosis. There is mild aortic stenosis present. Peak/mean gradient a cross the Aortic Valve is 21.27mmHg / 12.98mmHg. The mitral valve leaflets are mildly thickened. Mild mitral annular calcification present. Mild m itral regurgitation is present. Mild tricuspid regurgitation present. Right ventricular systolic pressure is normal at < 35 mmHg. The pulmonic valve was not well visualized. The aortic root size is normal. IVC Not well visulized. There is no pericardial effusion. CONCLUSIONS -------- 1. This was a technically adequate study. 2. The left ventricular size is normal. 3. There is mild concentric left ventricular hypertrophy. 4. Overall left ventricular systolic function is normal with, an EF between 65 - 70 %. 5. The right ventricle is mildly enlarged. 6. LA is severely dilated >40 ml/m2 7. The right atrium is normal in size. 8. Lipomatous Hypertrophy of the atrial septum is present 9. There is mild aortic valve sclerosis. 10. There is mild aortic stenosis present. 11. Peak/mean gradient across the Aortic Valve is 21.27mmHg / 12.98mmHg. 12. The mitral valve leaflets are mildly thickened. 13. Mild mitral annular calcification present. 14. Mild mitral regurgitation is present. 15. Mild tricuspid regurgitation present. 16. Right ventricular systolic pressure is normal at < 35 mmHg. 17. The pulmonic valve was not well visualized. 18. The aortic root size is normal. 19. IVC Not well visulized. 20. There is no pericardial effusion. CURRICULUM SUPERVISOR: Brisa Hawkins RDCS
[2018-12-04 07:19] VITALS: BP 107/58; RESP 18; TEMP 98
[2018-12-04 07:42] LABS: Calcium 8.5 mg/dL (8.4-10.2); Magnesium 1.6 mg/dL (1.6-2.3); Potassium 3.3 mmol/L (3.5-5.1)
[2018-12-04] MEDS: POTASSIUM CHLORIDE ER 20 MEQ TAB.ER PO SCH (07:47)
[2018-12-04] MEDS: APIXABAN 5 MG TAB PO SCH (07:48)
[2018-12-04] MEDS: PANTOPRAZOLE 40 MG TABLET PO SCH (07:49)
[2018-12-04] MEDS: IPRATROPIUM-ALBUTEROL 3 ML NEB INHALATION SCH ×2 (08:18→12:12)
[2018-12-04 08:51] LABS: T4, Free (Free Thyroxine) 1.1 ng/dL (0.78-2.19)
[2018-12-04] MEDS ORDERED: LEVOFLOXACIN 750 MG TAB PO SCH (10:00)
[2018-12-04 12:26] VITALS: PULSE 80
[2018-12-04] MEDS ORDERED: POTASSIUM CHLORIDE ER 20 MEQ TAB.ER PO STA (12:49)
--- NOTE | 2018-12-04 12:50 | P.PN ---
Subjective Patient is seen in follow-up for hyponatremia. Sodium level is up to 1:30. Diuretics are held and she is maintained on IV fluids. No vomiting or diarrhea. No chest pain or shortness of breath. Vital signs are stable. General: The patient appeared well nourished and normally developed. HEENT: Head exam is unremarkable. Neck is without jugular venous distension. LUNGS: Lungs are clear to auscultation and percussion. Breath sounds decreased. HEART: Rate and Rhythm are regular. First and second heart sounds normal. No murmurs, rubs or gallops. ABDOMEN: Abdominal exam reveals normal bowel sounds. Non-tender and non- distended. No evidence of peritonitis. EXTREMITITES: No clubbing, cyanosis, or edema. Objective - Vital Signs Vital signs: Vital Signs Temp 98.0 F 12/04/18 06:42 Pulse 80 12/04/18 12:26 Resp 18 12/04/18 06:42 BP 107/58 12/04/18 06:42 Pulse Ox 99 12/04/18 06:42 Intake & Output 12/03/18 12/04/18 12/04/18 18:59 06:59 18:59 Intake Total 730 240 Output Total 1200 Balance 730 -1200 240 Weight 63.5 kg Intake: Intake, IV Titration 420 Amount Sodium Chloride 0.9% 1, 420 000 ml @ 60 mls/hr IV . [id number] [facility] Rx#:[id number] Oral 240 Blood Product 310 Rc As-1 Unit 310 [id number] Output: Urine 1200 Other: Voiding Method Indwelling Catheter Indwelling Catheter Indwelling Catheter # Voids 350 # Bowel Movements 2 - Labs CBC & Chem 7: 12/03/18 02:35 12/04/18 06:39 Labs: Abnormal Lab Results - Last 24 Hours (Table) 12/03/18 12/03/18 12/03/18 Range/Units 17:32 17:32 17:32 Sodium 128 L (137-145) mmol/L Potassium (3.5-5.1) mmol/L BUN (7-17) mg/dL Osmolality 272 L (280-301) mosm/kg Iron 196 H (50-170) ug/dL Iron Saturation 64.90 H (12.00-45.00) TSH (0.465-4.680) mIU/L 12/04/18 Range/Units 06:39 Sodium 130 L (137-145) mmol/L Potassium 3.3 L (3.5-5.1) mmol/L BUN 18 H (7-17) mg/dL Osmolality (280-301) mosm/kg Iron (50-170) ug/dL Iron Saturation (12.00-45.00) TSH 9.100 H (0.465-4.680) mIU/L Microbiology - Last 24 Hours (Table) 11/30/18 07:24 Urine Culture - Final Urine,Catheterized 11/30/18 13:21 Blood Culture - Preliminary Blood No Growth after 72 hours Assessment and Plan Plan: Assessment: 1. Hypovolemic hyponatremia, further worsened with the use of thiazide diuretic, improving with IV hydration. Sodium level 130 today. Patient is also on Mobic which can induce hyponatremia. Diuretics were discontinued on December 02. Cortisol level normal. Uric acid normal. TSH noted to be high. 2. Hypokalemia secondary to diuresis and poor oral intake. 3. Anemia. Iron replete. 4. Recent small bowel resection and perforated hernia repair. 5. Possible UTI versus pneumonia maintained on antibiotics. Infectious disease following. 6. Hypothyroidism maintained on Synthroid. Plan: Discontinued metolazone on December 03. Thiazide diuretics should be avoided. Maintain normal saline. Maintain 1200 mL fluid restriction. Replace potassium. 40 mEq today. Discontinued Mobic. Repeat electrolytes in the morning. Follow-up cultures. Anticipated pressures. Repeat BMP and magnesium level 2-3 days postdischarge. Follow up outpatient in the next 1-2 weeks.
--- NOTE | 2018-12-04 12:51 | P.DS ---
Providers Date of admission: 11/30/18 08:48 Expected date of discharge: 12/04/18 Attending physician: Jack Manley Consults: 11/30/18 16:42 Consult Physician Routine Consulting Provider: Jeet Davis Consult Reason/Comments: patient readmit with pneumonia - recent surgery with Dr Davis. Do you want consulting provider notified?: Yes 12/01/18 15:09 Consult Physician Routine Consulting Provider: Mirna Bryan Consult Reason/Comments: pneumonia. antibioitcs Do you want consulting provider notified?: Yes 12/02/18 12:26 Consult Physician Routine Consulting Provider: Timmy Fan Consult Reason/Comments: hyponatremia Do you want consulting provider notified?: Yes 12/02/18 21:42 Consult Physician Stat Consulting Provider: Tyler Velázquez Consult Reason/Comments: Chest pain Do you want consulting provider notified?: Yes Primary care physician: Jack Manley Hospital Course: Final diagnoses -Acute left-sided pneumonia, possibly healthcare associated pneumonia, possibly gram-negative -Severe hyponatremia, improved, on fluid restrictions -Severe hypokalemia, improving -CHronic atrial fibrillation -Possible acute UTI present on admission, secondary to Rascon catheter from ECF. 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 Hospital course:This is an 83-year-old female admitted with left lower lobe pneumonia, severe hyponatremia, severe hypokalemia, possible acute UTI and multiple other medical issues. Chronic left upper quadrant and evaluated by surgery with no surgical intervention recommended at this time. Sodium currently 124, Lasix discontinued and IV fluids initiated. Currently denies cough. Maintained on IV antibiotics as per infectious disease. Afebrile, normal WBC .Potassium has normalized after receiving supplements. 12/03/2018 hypotensive during the night with systolic pressures down into the mid 70s accompanied by chest pain. A-Team called. Cardiology consulted. Recheck of labs reported hemoglobin 8.1. Received 250 mL fluid bolus, 1 unit of packed RBCs. Troponins negative 1. Potassium 3.4, receiving potassium supplements. This morning requiring 2 L nasal cannula O2 to maintain O2 sats in the 90s. Maintained on IV sodium chloride at 60 MLS per hour. Sodium 125. BUN 19, creatinine 0.9. Chest pain subsided, no palpitations. Systolic blood pressure improved, currently in the 90s. Denies lightheadedness dizziness or focal deficits. Afebrile, normal WBC. EXAM: GENERAL: Alert & Orieted X 2 no acute distress. Mild confusion, baseline. CARDIOVASCULAR: S1, S2 regular. No murmur RESPIRATION: Nonlabored. Breath sounds diminished in the bases. Scattered rhonchi, no crackles. No wheezing ABDOMEN: Soft, left upper quadrant chronic wound dressing clean dry and intact, No guarding. no masses palpable.Bowel sounds heard. NERVOUS SYSTEM: Cranial N 2-12 grossly normal. Moves all 4 limbs. Diffuse weakness, No focal deficits. The impression and plan of care has been dictated as directed. : I performed a history and examination of this patient, discussed the same with the dictator. I agree with the dictator's note ,documented as a scribe. Any additional findings or plans will be noted. Time Taken: 35 min. Patient Condition at Discharge: Stable Plan - Discharge Summary Discharge Rx Participant: Yes New Discharge Prescriptions: New Ipratropium-Albuterol Nebulize [Duoneb 0.5 mg-3 mg/3 ml Soln] 3 ml INHALATION RT-TID ampul.neb Ipratropium-Albuterol Nebulize [Duoneb 0.5 mg-3 mg/3 ml Soln] 3 ml INHALATION RT-TID PRN ampul.neb PRN Reason: Shortness Of Breath Or Wheezing Apixaban [Eliquis] 5 mg PO BID tab Levofloxacin [Levaquin] 750 mg PO Q48H #5 tab Levothyroxine Sodium [Synthroid] 25 mcg PO DAILY@0630 tab Melatonin 3 mg PO HS tablet Continue rOPINIRole HCL [Requip] 2 mg PO BID Aspirin EC [Ecotrin Low Dose] 81 mg PO HS Cholecalciferol [Vitamin D3 (25 Mcg = 1000 Iu)] 1,000 unit PO DAILY@1700 Pantoprazole [Protonix] 40 mg PO DAILY tablet. Acetaminophen Tab [Tylenol] 650 mg PO Q6HR PRN tab PRN Reason: Mild Pain Or Fever > 100.5 Magnesium Hydroxide [Milk of Magnesia] 2,400 mg PO DAILY PRN PRN Reason: Constipation Na Phos,M-B/Na Phos,Di-Ba [Fleet Adult] 133 ml RECTAL DAILY PRN PRN Reason: Constipation Bisacodyl [Dulcolax] 10 mg RECTAL DAILY PRN PRN Reason: Constipation Potassium Chloride ER [K-Dur 20] 20 meq PO DAILY Discontinued Meloxicam 15 mg PO DAILY Furosemide [Lasix] 40 mg PO DAILY Apixaban [Eliquis] 10 mg PO BID #11 tab Nitrofurantoin Monohyd/M-Cryst [Macrobid] 100 mg PO BID #14 cap Apixaban [Eliquis] 5 mg PO DIRECTED Metolazone [Zaroxolyn] 2.5 mg PO DAILY Discharge Medication List Aspirin EC [Ecotrin Low Dose] 81 mg PO HS 09/06/18 [History] rOPINIRole HCL [Requip] 2 mg PO BID 09/06/18 [History] Cholecalciferol [Vitamin D3 (25 Mcg = 1000 Iu)] 1,000 unit PO DAILY@1700 11/15/18 [History] Acetaminophen Tab [Tylenol] 650 mg PO Q6HR PRN tab 11/26/18 [Rx] Pantoprazole [Protonix] 40 mg PO DAILY tablet. 11/26/18 [Rx] Bisacodyl [Dulcolax] 10 mg RECTAL DAILY PRN 11/30/18 [History] Magnesium Hydroxide [Milk of Magnesia] 2,400 mg PO DAILY PRN 11/30/18 [History] Na Phos,M-B/Na Phos,Di-Ba [Fleet Adult] 133 ml RECTAL DAILY PRN 11/30/18 [History] Potassium Chloride ER [K-Dur 20] 20 meq PO DAILY 11/30/18 [History] Apixaban [Eliquis] 5 mg PO BID tab 12/04/18 [Rx] Ipratropium-Albuterol Nebulize [Duoneb 0.5 mg-3 mg/3 ml Soln] 3 ml INHALATION RT-TID ampul.neb 12/04/18 [Rx] Ipratropium-Albuterol Nebulize [Duoneb 0.5 mg-3 mg/3 ml Soln] 3 ml INHALATION RT-TID PRN ampul.neb 12/04/18 [Rx] Levofloxacin [Levaquin] 750 mg PO Q48H #5 tab 12/04/18 [Rx] Levothyroxine Sodium [Synthroid] 25 mcg PO DAILY@0630 tab 12/04/18 [Rx] Melatonin 3 mg PO HS tablet 12/04/18 [Rx] Follow up Appointment(s)/Referral(s): Ernie Haynes DO [STAFF PHYSICIAN] - 3 Days Activity/Diet/Wound Care/Special Instructions: Grisel Final restrictions 1200ml/ 24h Diet: Dysphagia level I pured (dental issues) CBC, BMP in 3 days Daily Wound care as per surgery SUJIT Rascon upon return tomorrow with with post void residuals Lasix on hold Discharge Disposition: TRANSFER TO SNF/ECF
[2018-12-04] MEDS: SODIUM CHLORIDE 0.9% 1,000 ML IV SCH (13:38)
--- NOTE | 2018-12-04 15:30 | PN ---
PROGRESS NOTE DATE OF SERVICE: 12/04/2018 REASON FOR FOLLOWUP: 1. Possible UTI. 2. Left lower abdominal wound. INTERVAL HISTORY: The patient was seen on rounds this morning. The patient was afebrile. The patient was breathing comfortably. Denies having any chest pain or any cough. No nausea, no vomiting. No abdominal pain, no diarrhea. PHYSICAL EXAMINATION: Blood pressure 107/58 with a pulse of 57, temperature 98, she is 99% on room air. General description is an elderly female, lying in bed in no distress. RESPIRATORY SYSTEM: Unlabored breathing, clear to auscultation anteriorly. HEART: S1, S2. Regular rate and rhythm. ABDOMEN: Soft, no tenderness. LABS: Culture has been negative so far. DIAGNOSTIC IMPRESSION AND PLAN: Patient admitted to the hospital with hypertension, possible dehydration, underlying urinary tract infection not entirely excluded as the patient did have a positive UA. Plan at this time is to finish a short course of oral Levaquin. Plan of care discussed in detail with the nurse practitioner for the primary team who was working on discharge. MMODL / IJN: [id number] /
== END 2018-12-04 13:55 | DRG 177 ==
LOC: EC 05:47 → 4SSUR 08:48
PROVIDERS: ADMIT Family Medicine; ATTEND Family Medicine
DX: J15.6 Pneumonia due to other Gram-negative bacteria (principal); J96.01 Acute respiratory failure with hypoxia; E87.1 Hypo-osmolality and hyponatremia; K46.0 Unspecified abdominal hernia with obstruction, without gangrene; N39.0 Urinary tract infection, site not specified; Z87.891 Personal history of nicotine dependence; D63.8 Anemia in other chronic diseases classified elsewhere; E03.9 Hypothyroidism, unspecified; E86.0 Dehydration; E86.1 Hypovolemia; E87.6 Hypokalemia; I11.0 Hypertensive heart disease with heart failure; I20.9 Angina pectoris, unspecified; I44.0 Atrioventricular block, first degree; I48.2 Chronic atrial fibrillation; I50.9 Heart failure, unspecified; J45.20 Mild intermittent asthma, uncomplicated; K21.9 Gastro-esophageal reflux disease without esophagitis; K44.9 Diaphragmatic hernia without obstruction or gangrene; T50.2X5A Adverse effect of carbonic-anhydrase inhibitors, benzothiadiazides and other diuretics, initial encounter; T39.395A Adverse effect of other nonsteroidal anti-inflammatory drugs [NSAID], initial encounter; Y95 Nosocomial condition; I95.9 Hypotension, unspecified; Z79.01 Long term (current) use of anticoagulants; Z79.1 Long term (current) use of non-steroidal anti-inflammatories (NSAID); Z79.82 Long term (current) use of aspirin; Z79.899 Other long term (current) drug therapy; Z80.8 Family history of malignant neoplasm of other organs or systems; Z86.718 Personal history of other venous thrombosis and embolism; Z86.73 Personal history of transient ischemic attack (TIA), and cerebral infarction without residual deficits; Z87.440 Personal history of urinary (tract) infections; Z90.710 Acquired absence of both cervix and uterus; Z96.652 Presence of left artificial knee joint; Z90.49 Acquired absence of other specified parts of digestive tract; Z90.3 Acquired absence of stomach [part of]; Z88.1 Allergy status to other antibiotic agents; Z88.5 Allergy status to narcotic agent; Z88.0 Allergy status to penicillin; Z88.7 Allergy status to serum and vaccine; Z91.81 History of falling
CPT/HCPCS: 36415; 71046; 80048; 80053; 81001; 82533; 82728; 83540; 83550; 83605; 83735; 83930; 83935; 84132; 84145; 84295; 84300; 84436; 84439; 84443; 84481; 84484; 84550; 85025; 85610; 85730; 86140; 86850; 86900; 86901; 86920; 87040; 87086; 93005; 93306; 94640; 96360; 96361; 99285

== ENCOUNTER 2018-12-14 21:30 | Inpatient (IN) | payer MEDICARE ==
--- NOTE | 2018-12-14 21:46 | ED ---
Abdominal Pain HPI - General Stated Complaint: Abd Pain Time Seen by Provider: 12/14/18 21:34 Source: patient, EMS Mode of arrival: EMS Limitations: physical limitation - History of Present Illness Initial Comments: Gwendolyn is a pleasant 83 -year-old female with past medical history most significant for bowel perforation requiring surgical repair in September of this year, patient has a nonhealing wound in the left upper abdomen. Patient is brought to the ER today for evaluation of abdominal distention and discomfort. Patient family member bedside state that the patient attended a picnic earlier today and was feeling well, through out the evening she's noted that her abdomen seems to be distended and uncomfortable. Patient reports some nausea but no vomiting. She reports she had 2 normal bowel movements earlier in the day today. She is no history of bowel obstruction that she is aware of. - Related Data Home Medications Medication Instructions Recorded Confirmed Aspirin EC [Ecotrin Low Dose] 81 mg PO HS@209909/06/18 12/14/18 rOPINIRole HCL [Requip] 2 mg PO BID@0800,169909/06/18 12/14/18 Cholecalciferol [Vitamin D3 (25 1,000 unit PO DAILY@169911/15/18 12/14/18 Mcg = 1000 Iu)] Bisacodyl [Dulcolax] 10 mg RECTAL DAILY PRN 11/30/18 12/14/18 Magnesium Hydroxide [Milk of 2,400 mg PO DAILY PRN 11/30/18 12/14/18 Magnesia] Na Phos,M-B/Na Phos,Di-Ba [Fleet 133 ml RECTAL DAILY PRN 11/30/18 12/14/18 Adult] Potassium Chloride ER [K-Dur 20] 20 meq PO DAILY@169911/30/18 12/14/18 Apixaban [Eliquis] 5 mg PO BID@0800,1700 12/14/18 12/14/18 Melatonin 3 mg PO HS@209912/14/18 12/14/18 Pantoprazole [Protonix] 40 mg PO DAILY@0600 12/14/18 12/14/18 Previous Rx's Medication Instructions Recorded Acetaminophen Tab [Tylenol] 650 mg PO Q6HR PRN tab 11/26/18 Levothyroxine Sodium [Synthroid] 25 mcg PO DAILY@0630 tab 12/04/18 Allergies Allergy/AdvReac Type Severity Reaction Status Date / Time hydromorphone HCl Allergy Itching Verified 12/14/18 21:35 [From Dilaudid] Penicillins Allergy Rash/Hives Verified 12/14/18 21:35 erythromycin base AdvReac Unknown Verified 12/14/18 21:35 [Erythromycin Base] flu vaccine Allergy Unknown Uncoded 12/14/18 21:35 Review of Systems ROS Statement: Those systems with pertinent positive or pertinent negative responses have been documented in the HPI. ROS Other: All systems not noted in ROS Statement are negative. Past Medical History Past Medical History: Atrial Fibrillation, Asthma, Chest Pain / Angina, Heart Failure, CVA/TIA, Deep Vein Thrombosis (DVT), GERD/Reflux Additional Past Medical History / Comment(s): hx ulcer, hiatal hernia. blood clot x 3 left leg, anemia, syncope,bruises easily History of Any Multi-Drug Resistant Organisms: None Reported Past Surgical History: Bladder Surgery, Section, Heart Catheterization, Hysterectomy, Joint Replacement Additional Past Surgical History / Comment(s): gastrectomy, stomach tumor removed, stomach stapling, surgery to reattach ureters, left knee replacement. recent hernia surgery october 2018 Past Anesthesia/Blood Transfusion Reactions: Motion Sickness Additional Past Anesthesia/Blood Transfusion Reaction / Comment(s): motion sickness in past Past Psychological History: No Psychological Hx Reported Smoking Status: Former smoker Past Alcohol Use History: None Reported Past Drug Use History: None Reported - Past Family History Mother Family Medical History: Cancer Additional Family Medical History / Comment(s): "throat" CA General Exam - General Exam Comments Initial Comments: Physical Exam GENERAL: Elderly female in no acute distress HENT: Normocephalic, Atraumatic. EYES: PERRL, EOMI PULMONARY: Unlabored respirations. No audible rales rhonchi or wheezing was noted. CARDIOVASCULAR: RRR ABDOMEN: Soft, mildly distended with no tenderness owing wound in the left upper quadrant with dressing in place. The drainage noted SKIN: Surgical incision infection left upper quadrant of abdomen as noted above : Deferred NEUROLOGIC: Patient is alert and oriented x3. Moving all extremities spontaneously MUSCULOSKELETAL: Normal extremities with adequate strength and full range of motion. No lower extremity swelling or edema. No calf tenderness. PSYCHIATRIC: Normal psychiatric evaluation. Limitations: physical limitation Course Vital Signs 12/14/18 12/14/18 12/15/18 21:36 23:49 02:00 Temperature 98.3 F 98.2 F Pulse Rate 84 91 69 Respiratory 16 18 16 Rate Blood Pressure 140/75 124/77 104/54 O2 Sat by Pulse 99 99 99 Oximetry 12/15/18 03:00 Temperature Pulse Rate 70 Respiratory 16 Rate Blood Pressure 106/66 O2 Sat by Pulse 99 Oximetry Medical Decision Making - Medical Decision Making Patient was seen and evaluated history is obtained from patient and review of medical record and patient's daughter bedside History and Physical Exam concerning for Possible Bowel Traction As the Patient Has Soft Abdominal Distention, X-Ray Reveals Copious Amount of Gas in the Bowel No Transition Point No Air-Fluid Levels Computed Tomography Scan Was Ordered for Further Evaluation Labs Are Reviewed with No Significant Abnormalities Ounces with evidence of a urinary tract infection, Rocephin ordered CT scan reveals constipation with no signs of bowel obstruction The patient's advanced age, recent surgical intervention, we will plan to admit the patient for evaluation. Patient will be admitted to the medicine team with a consult to general surgery Dr. locke. Patient care was discussed with Dr. locke who is aware of the patient's nonhealing wound, has a high suspicion for possible fistula but due to the patient's medical comorbidities is not a candidate for repair of this time. - Lab Data Result diagrams: 12/14/18 22:41 12/14/18 22:41 Lab Results 12/14/18 12/14/18 12/14/18 Range/Units 22:13 22:41 22:41 WBC 7.0 (3.8-10.6) k/uL RBC 3.99 (3.80-5.40) m/uL Hgb 11.2 L (11.4-16.0) gm/dL Hct 34.1 (34.0-46.0) % MCV 85.6 (80.0-100.0) fL MCH 28.2 (25.0-35.0) pg MCHC 32.9 (31.0-37.0) g/dL RDW 16.3 H (11.5-15.5) % Plt Count 359 (150-450) k/uL Neutrophils % 70 % Lymphocytes % 20 % Monocytes % 4 % Eosinophils % 3 % Basophils % 1 % Neutrophils # 4.9 (1.3-7.7) k/uL Lymphocytes # 1.4 (1.0-4.8) k/uL Monocytes # 0.3 (0-1.0) k/uL Eosinophils # 0.2 (0-0.7) k/uL Basophils # 0.1 (0-0.2) k/uL Anisocytosis Slight Sodium 133 L (137-145) mmol/L Potassium 4.1 (3.5-5.1) mmol/L Chloride 105 (98-107) mmol/L Carbon Dioxide 18 L (22-30) mmol/L Anion Gap 10 mmol/L BUN 12 (7-17) mg/dL Creatinine 0.61 (0.52-1.04) mg/dL Est GFR (CKD-EPI)AfAm >90 (>60 ml/min/1.73 sqM) Est GFR (CKD-EPI)NonAf 83 (>60 ml/min/1.73 sqM) Glucose 105 H (74-99) mg/dL Calcium 9.0 (8.4-10.2) mg/dL Total Bilirubin 0.5 (0.2-1.3) mg/dL AST 22 (14-36) U/L ALT 26 (9-52) U/L Alkaline Phosphatase 80 (38-126) U/L Total Protein 5.6 L (6.3-8.2) g/dL Albumin 3.2 L (3.5-5.0) g/dL Amylase 38 (30-110) U/L Lipase 37 (23-300) U/L Urine Color Light Red Urine Appearance Turbid H (Clear) Urine pH 5.5 (5.0-8.0) Ur Specific [place] 1.017 (1.001-1.035) Urine Protein 1+ H (Negative) Urine Glucose (UA) Negative (Negative) Urine Ketones Trace H (Negative) Urine Blood Large H (Negative) Urine Nitrite Negative (Negative) Urine Bilirubin Negative (Negative) Urine Urobilinogen <2.0 (<2.0) mg/dL Ur Leukocyte Esterase Large H (Negative) Urine RBC >182 H (0-5) /hpf Urine WBC Clumps Occasional H (None) /hpf Urine Mucus Moderate H (None) /hpf Urine Yeast (Budding) Many H (None) /hpf Disposition Clinical Impression: Abdominal colic, UTI (urinary tract infection), At risk for readmission to hospital Disposition: ADMITTED IP TO THIS HOSP Condition: Stable
[2018-12-14 22:52] LABS: Anisocytosis Slight; Basophils # (A) 0.1 k/uL (0-0.2); Basophils % (A) 1 %; Eosinophils # (A) 0.2 k/uL (0-0.7); Eosinophils % (A) 3 %; HCT 34.1 % (34.0-46.0); HGB 11.2 gm/dL (11.4-16.0); Lymphocytes # (A) 1.4 k/uL (1.0-4.8); Lymphocytes % (A) 20 %; MCH 28.2 pg (25.0-35.0); MCHC 32.9 g/dL (31.0-37.0); MCV 85.6 fL (80.0-100.0); Mean Platelet Volume 7.4; Monocytes # (A) 0.3 k/uL (0-1.0); Monocytes % (A) 4 %; Neutrophils # (A) 4.9 k/uL (1.3-7.7); Neutrophils % (A) 70 %; Platelet Count 359 k/uL (150-450); RBC 3.99 m/uL (3.80-5.40); RDW 16.3 % (11.5-15.5)
[2018-12-14 23:04] LABS: ALT 26 U/L (9-52); AST 22 U/L (14-36); African American GFR (CKD) >90 (>60 ml/min/1.73 sqM); Albumin 3.2 g/dL (3.5-5.0); Alkaline Phosphatase 80 U/L (38-126); Amylase 38 U/L (30-110); Anion Gap 10 mmol/L; Blood Urea Nitrogen 12 mg/dL (7-17); Carbon Dioxide 18 mmol/L (22-30); Chloride 105 mmol/L (98-107); Glucose 105 mg/dL (74-99); Potassium 4.1 mmol/L (3.5-5.1); Sodium 133 mmol/L (137-145); Total Bilirubin 0.5 mg/dL (0.2-1.3); Total Protein 5.6 g/dL (6.3-8.2)
[2018-12-14 23:06] LABS: Appearance,Urine Turbid (Clear); Bilirubin,Urine Negative (Negative); Blood,Urine Large (Negative); Budding Yeast,Urine Many /hpf; Color,Urine Light Red; Glucose,Urine (UA) Negative (Negative); Ketones,Urine Trace (Negative); Leukocyte Esterase,Urine Large (Negative); Mucus,Urine Moderate /hpf; Nitrite,Urine Negative (Negative); PH, Urine 5.5 (5.0-8.0); Protein,Urine 1+ (Negative); RBC,Urine >182 /hpf (0-5); Specific Gravity,Urine 1.017 (1.001-1.035); Urobilinogen,Urine <2.0 mg/dL (<2.0)
[2018-12-14] MEDS ORDERED: cefTRIAXone IN SWFI 1,000 MG/10 ML SYRINGE IVP STA (23:25)
[2018-12-15] MEDS ORDERED: MORPHINE SULFATE 4 MG/ML SYRINGE IVP STA (00:31)
--- NOTE | 2018-12-15 01:05 | CT ---
EXAM: CT Abdomen and Pelvis With Intravenous Contrast CLINICAL HISTORY: ITS.REASON CT Reason: abdominal pain, distention, recent bowel perf TECHNIQUE: Axial computed tomography images of the abdomen and pelvis with intravenous contrast. CTDI is 12 mGy and DLP is 621 mGy-cm. This CT exam was performed using one or more of the following dose reduction techniques: automated exposure control, adjustment of the mA and/or kV according to patient size, and/or use of iterative reconstruction technique. COMPARISON: CT abdomen 11/15/18 FINDINGS: Lung bases: No mass. No consolidation. ABDOMEN: Liver: Unremarkable. Gallbladder and bile ducts: Unremarkable. Pancreas: Unremarkable. Spleen: Unremarkable. Adrenals: Unremarkable. Kidneys and ureters: No hydronephrosis. Cysts. Stomach and bowel: No bowel obstruction. No bowel wall thickening. Copious amounts of stool throughout the colon. Prior bowel surgery. PELVIS: Appendix: No evidence of appendicitis. Bladder: [place]. Reproductive: Unremarkable. ABDOMEN and PELVIS: Intraperitoneal space: Unremarkable. Bones/joints: No acute fractures. Soft tissues: 3.5 x 2.5 cm fluid collection in the left upper abdominal wall in the subcutaneous tissue. Vasculature: No abdominal aortic aneurysm. Lymph nodes: No enlarged lymph nodes. IMPRESSION: 1. No evidence of bowel perforation. No bowel obstruction. Copious amounts of stool throughout the colon. 2. 3.5 x 2.5 cm superficial abscess in the left upper anterior abdominal wall within the subcutaneous tissue.
[2018-12-15] MEDS ORDERED: DOCUSATE 100 MG CAP PO PRN (02:08)
[2018-12-15] MEDS ORDERED: BISACODYL 10 MG SUPP RECTAL PRN (02:08)
[2018-12-15] MEDS ORDERED: MORPHINE SULFATE 4 MG/ML SYRINGE IV PRN (02:08)
[2018-12-15] MEDS ORDERED: NALOXONE 0.4 MG/ML 1 ML VIAL IV PRN (02:08)
[2018-12-15] MEDS ORDERED: ONDANSETRON 4 MG/2 ML VIAL IVP PRN (02:08)
[2018-12-15 05:21] VITALS: BMI 30.1
--- NOTE | 2018-12-15 07:14 | XR ---
EXAMINATION TYPE: XR KUB DATE OF EXAM: 12/14/2018 CLINICAL DATA: 83-year-old female with abdominal pain, [facility] COMPARISON: 11/15/2018 FINDINGS: Supine imaging limited for assessment of free intraperitoneal air. The dilated small bowel seen. Prominent gassy colon is present throughout with moderate stool. Surgical material below the GE junction and within the left abdomen. Bowel content partially obscures the renal shadows. Degenerated S-shaped scoliosis. IMPRESSION: 1. Moderate stool throughout prominent, gassy colon. 2. Overall nonobstructive bowel gas pattern.
--- NOTE | 2018-12-15 18:18 | P.GSCN ---
History of Present Illness Consult date: 12/15/18 History of present illness: Patient is a 83-year-old female very well known to my service. She has a chronic left upper quadrant wound which is being packed. Its open and draining. She is following up with wound care. She apparently was having abdominal pain found have a UTI. She denies abdominal pain at this time. She is asking to return to [facility]. She's tolerating her diet. Passing gas and bowel movements. Past Medical History Past Medical History: Atrial Fibrillation, Asthma, Chest Pain / Angina, Heart Failure, CVA/TIA, Deep Vein Thrombosis (DVT), GERD/Reflux Additional Past Medical History / Comment(s): hx ulcer, hiatal hernia. blood clot x 3 left leg, anemia, syncope,bruises easily History of Any Multi-Drug Resistant Organisms: None Reported Past Surgical History: Bladder Surgery, Section, Heart Catheterization, Hysterectomy, Joint Replacement Additional Past Surgical History / Comment(s): gastrectomy, stomach tumor removed, stomach stapling, surgery to reattach ureters, left knee replacement. recent hernia surgery october 2018 Past Anesthesia/Blood Transfusion Reactions: Motion Sickness Additional Past Anesthesia/Blood Transfusion Reaction / Comm: motion sickness in past Past Psychological History: No Psychological Hx Reported Smoking Status: Former smoker Past Alcohol Use History: None Reported Past Drug Use History: None Reported - Past Family History Mother Family Medical History: Cancer Additional Family Medical History / Comment(s): "throat" CA Medications and Allergies Home Medications Medication Instructions Recorded Confirmed Type Aspirin EC [Ecotrin Low Dose] 81 mg PO HS@2100 09/06/18 12/14/18 History rOPINIRole HCL [Requip] 2 mg PO BID@0800,1700 09/06/18 12/14/18 History Cholecalciferol [Vitamin D3 (25 1,000 unit PO DAILY@1700 11/15/18 12/14/18 History Mcg = 1000 Iu)] Acetaminophen Tab [Tylenol] 650 mg PO Q6HR PRN tab 11/26/18 12/14/18 Rx Bisacodyl [Dulcolax] 10 mg RECTAL DAILY PRN 11/30/18 12/14/18 History Magnesium Hydroxide [Milk of 2,400 mg PO DAILY PRN 11/30/18 12/14/18 History Magnesia] Na Phos,M-B/Na Phos,Di-Ba [Fleet 133 ml RECTAL DAILY PRN 11/30/18 12/14/18 History Adult] Potassium Chloride ER [K-Dur 20] 20 meq PO DAILY@1700 11/30/18 12/14/18 History Levothyroxine Sodium [Synthroid] 25 mcg PO DAILY@0630 tab 12/04/18 12/14/18 Rx Apixaban [Eliquis] 5 mg PO BID@0800,1700 12/14/18 12/14/18 History Melatonin 3 mg PO HS@2100 12/14/18 12/14/18 History Pantoprazole [Protonix] 40 mg PO DAILY@0600 12/14/18 12/14/18 History Allergies Allergy/AdvReac Type Severity Reaction Status Date / Time hydromorphone HCl Allergy Itching Verified 12/14/18 21:35 [From Dilaudid] Penicillins Allergy Rash/Hives Verified 12/14/18 21:35 erythromycin base AdvReac Unknown Verified 12/14/18 21:35 [Erythromycin Base] flu vaccine Allergy Unknown Uncoded 12/14/18 21:35 Surgical - Exam Osteopathic Statement: *. No significant issues noted on an osteopathic structural exam other than those noted in the History and Physical/Consult. Vital Signs Temp Pulse Resp BP Pulse Ox 98.3 F 84 16 140/75 99 12/14/18 21:36 12/14/18 21:36 12/14/18 21:36 12/14/18 21:36 12/14/18 21:36 - General well developed, well nourished, no distress - Respiratory normal expansion, normal respiratory effort - Abdomen S/NT/ND, chronic wound in LUQ with some drainage - Neurologic normal coordination, normal sensation - Psychiatric oriented to time, oriented to person, oriented to place Results - Labs 12/14/18 22:41 12/14/18 22:41 Abnormal Lab Results - Last 24 Hours (Table) 12/14/18 12/14/18 12/14/18 Range/Units 22:13 22:41 22:41 Hgb 11.2 L (11.4-16.0) gm/dL RDW 16.3 H (11.5-15.5) % Sodium 133 L (137-145) mmol/L Carbon Dioxide 18 L (22-30) mmol/L Glucose 105 H (74-99) mg/dL Total Protein 5.6 L (6.3-8.2) g/dL Albumin 3.2 L (3.5-5.0) g/dL Urine Appearance Turbid H (Clear) Urine Protein 1+ H (Negative) Urine Ketones Trace H (Negative) Urine Blood Large H (Negative) Ur Leukocyte Esterase Large H (Negative) Urine RBC >182 H (0-5) /hpf Urine WBC Clumps Occasional H (None) /hpf Urine Mucus Moderate H (None) /hpf Urine Yeast (Budding) Many H (None) /hpf Diabetes panel 12/14/18 Range/Units 22:41 Sodium 133 L (137-145) mmol/L Potassium 4.1 (3.5-5.1) mmol/L Chloride 105 (98-107) mmol/L Carbon Dioxide 18 L (22-30) mmol/L BUN 12 (7-17) mg/dL Creatinine 0.61 (0.52-1.04) mg/dL Glucose 105 H (74-99) mg/dL Calcium 9.0 (8.4-10.2) mg/dL AST 22 (14-36) U/L ALT 26 (9-52) U/L Alkaline Phosphatase 80 (38-126) U/L Total Protein 5.6 L (6.3-8.2) g/dL Albumin 3.2 L (3.5-5.0) g/dL Calcium panel 12/14/18 Range/Units 22:41 Calcium 9.0 (8.4-10.2) mg/dL Albumin 3.2 L (3.5-5.0) g/dL Pituitary panel 12/14/18 Range/Units 22:41 Sodium 133 L (137-145) mmol/L Potassium 4.1 (3.5-5.1) mmol/L Chloride 105 (98-107) mmol/L Carbon Dioxide 18 L (22-30) mmol/L BUN 12 (7-17) mg/dL Creatinine 0.61 (0.52-1.04) mg/dL Glucose 105 H (74-99) mg/dL Calcium 9.0 (8.4-10.2) mg/dL Adrenal panel 12/14/18 Range/Units 22:41 Sodium 133 L (137-145) mmol/L Potassium 4.1 (3.5-5.1) mmol/L Chloride 105 (98-107) mmol/L Carbon Dioxide 18 L (22-30) mmol/L BUN 12 (7-17) mg/dL Creatinine 0.61 (0.52-1.04) mg/dL Glucose 105 H (74-99) mg/dL Calcium 9.0 (8.4-10.2) mg/dL Total Bilirubin 0.5 (0.2-1.3) mg/dL AST 22 (14-36) U/L ALT 26 (9-52) U/L Alkaline Phosphatase 80 (38-126) U/L Total Protein 5.6 L (6.3-8.2) g/dL Albumin 3.2 L (3.5-5.0) g/dL Assessment and Plan Assessment: Left upper quadrant chronic wound Plan: Continue local wound care packing and dressing changes daily. No plans for surgical intervention
--- NOTE | 2018-12-15 23:32 | P.HPIM ---
History of Present Illness H&P Date: 12/15/18 This is a pleasant 83-year-old white female who [facility] discharged from the [facility]. She was known to have a left upper quadrant abscess in her abdomen which is being followed closely by Dr. locke's team and wound care. The surgery is being packed. She is also on treatment for urinary tract infection which seems to be healing he seems to be in no acute distress currently. Review of Systems GENERAL: Patient denies fever. Denies chills. EYES: Denies blurred vision. Denies vision changes. Denies eye pain. EARS, NOSE, MOUTH, & THROAT: Denies headache. Denies sore throat. Denies ear pain. RESPIRATORY: Denies cough. Chronic shortness of breath. Denies sputum production. Denies hemoptysis. CARDIOVASCULAR: Denies chest pain or pressure. Denies palpitations. Denies arrhythmias. GASTROINTESTINAL: Denies abdominal pain. Denies diarrhea. Denies constipation. Denies nausea. Denies vomiting. Denies heartburn. Denies blood in the stool. GENITOURINARY: Has urinary frequency. Denies burning. Denies dysuria. Denies cloudy urine. Denies blood in the urine. MUSCULOSKELETAL: Denies myalgias. Denies joint swelling. Denies decreased range of motion beyond patients baseline. INTEGUMENTARY: Denies pruitis. Denies rash. A missed open wound left upper quadrant abdomen being packed with saline gauze. PSYCHIATRIC: Denies suicidal or homicial ideations. ENDOCRINE: Denies weight change. Denies polydipsia. Denies polyuria. HEMATOLOGIC: Denies bleeding disorders. Past Medical History Past Medical History: Atrial Fibrillation, Asthma, Chest Pain / Angina, Heart Failure, CVA/TIA, Deep Vein Thrombosis (DVT), GERD/Reflux Additional Past Medical History / Comment(s): hx ulcer, hiatal hernia. blood clot x 3 left leg, anemia, syncope,bruises easily History of Any Multi-Drug Resistant Organisms: None Reported Past Surgical History: Bladder Surgery, Section, Heart Catheterization, Hysterectomy, Joint Replacement Additional Past Surgical History / Comment(s): gastrectomy, stomach tumor removed, stomach stapling, surgery to reattach ureters, left knee replacement. recent hernia surgery october 2018 Past Anesthesia/Blood Transfusion Reactions: Motion Sickness Additional Past Anesthesia/Blood Transfusion Reaction / Comment(s): motion sickness in past Past Psychological History: No Psychological Hx Reported Smoking Status: Former smoker Past Alcohol Use History: None Reported Past Drug Use History: None Reported - Past Family History Mother Family Medical History: Cancer Additional Family Medical History / Comment(s): "throat" [place] Medications and Allergies Home Medications Medication Instructions Recorded Confirmed Type Aspirin EC [Ecotrin Low Dose] 81 mg PO HS@2100 09/06/18 12/14/18 History rOPINIRole HCL [Requip] 2 mg PO BID@0800,1700 09/06/18 12/14/18 History Cholecalciferol [Vitamin D3 (25 1,000 unit PO DAILY@1700 11/15/18 12/14/18 History Mcg = 1000 Iu)] Acetaminophen Tab [Tylenol] 650 mg PO Q6HR PRN tab 11/26/18 12/14/18 Rx Bisacodyl [Dulcolax] 10 mg RECTAL DAILY PRN 11/30/18 12/14/18 History Magnesium Hydroxide [Milk of 2,400 mg PO DAILY PRN 11/30/18 12/14/18 History Magnesia] Na Phos,M-B/Na Phos,Di-Ba [Fleet 133 ml RECTAL DAILY PRN 11/30/18 12/14/18 History Adult] Potassium Chloride ER [K-Dur 20] 20 meq PO DAILY@1700 11/30/18 12/14/18 History Levothyroxine Sodium [Synthroid] 25 mcg PO DAILY@0630 tab 12/04/18 12/14/18 Rx Apixaban [Eliquis] 5 mg PO BID@0800,1700 12/14/18 12/14/18 History Melatonin 3 mg PO HS@2100 12/14/18 12/14/18 History Pantoprazole [Protonix] 40 mg PO DAILY@0600 12/14/18 12/14/18 History Allergies Allergy/AdvReac Type Severity Reaction Status Date / Time hydromorphone HCl Allergy Itching Verified 12/14/18 21:35 [From Dilaudid] Penicillins Allergy Rash/Hives Verified 12/14/18 21:35 erythromycin base AdvReac Unknown Verified 12/14/18 21:35 [Erythromycin Base] flu vaccine Allergy Unknown Uncoded 12/14/18 21:35 Physical Exam Osteopathic Statement: *. No significant issues noted on an osteopathic structural exam other than those noted in the History and Physical/Consult. Vitals: Vital Signs Temp Pulse Pulse Resp BP BP Pulse Ox 12/15/18 19:00 97.6 F 87 15 117/75 98 12/15/18 15:00 98.3 F 85 15 120/66 92 L 12/15/18 07:56 98.3 F 78 18 128/76 94 L 12/15/18 05:20 97.6 F 69 16 149/79 98 12/15/18 03:00 70 16 106/66 99 12/15/18 02:00 98.2 F 69 16 104/54 99 12/14/18 23:49 91 18 124/77 99 Intake and Output 12/15/18 12/15/18 12/16/18 14:59 22:59 06:59 Intake Total 680 50 Balance 680 50 Intake: Oral 680 50 Other: Voiding Method Indwelling Catheter Indwelling Catheter GENERAL: This is a -83 year-old in no apparent distress at the time of examination. Pleasant and cooperative. HEENT: Head is atraumatic, normocephalic. Pupils are equal, round, and reactive to light. Sclerae anicteric. Conjunctivae are clear. Mucus membranes of the mouth are moist. Neck is supple. RESPIRATORY: Clear to auscultation. No wheezes, rales, or rhonchi. No use of accessory muscles. Patient maintaining oxygen saturation greater than 92%. No chest wall tenderness is noted on palpation or with deep breathing. CARDIOVASCULAR: Irregular rate and rhythm. S1 and S2 noted. GASTROINTESTINAL: No distention noted. Abdomen soft and round. Normal active bowel sounds auscultated x 4 quadrants. No pain or tenderness noted upon palpation. INTEGUMENTARY: No cyanosis. No jaundice. No rashes noted. No cellulitis noted. Open wound to the left upper quadrant of the her abdomen with pad EXTREMITIES: 2+ peripheral pulses. No evidence of peripheral edema. No calf tenderness noted. NEUROLOGIC: Cranial nerves II-XII intact. PSYCHIATRIC: Awake, alert, and oriented X 3. Appropriate affect. Intact judgement and insight. Results CBC & Chem 7: 12/14/18 22:41 12/14/18 22:41 Thrombosis Risk Factor Assmnt - Choose All That Apply Any of the Below Risk Factors Present?: Yes Each Factor Represents 1 point: Swollen legs (current) Each Risk Factor Represents 3 Points: Age 75 years or older, History of DVT/PE Other congenital or acquired thrombophilia - If yes, enter type in comment: No Thrombosis Risk Factor Assessment Total Risk Factor Score: 7 Thrombosis Risk Factor Assessment Level: High Risk Assessment and Plan (1) At risk for readmission to hospital Current Visit: Yes Status: Acute Code(s): Z91.89 - OTH PERSONAL RISK FACTORS, NOT ELSEWHERE CLASSIFIED SNOMED Code(s): 3606851868656 (2) Abdominal pain Current Visit: No Status: Acute Code(s): R10.9 - UNSPECIFIED ABDOMINAL PAIN SNOMED Code(s): 79499940 Plan: Continue IV antibiotics hydration continue wound care await surgical recommendations patient most likely not a surgical candidate because of advanced age and nonemergent situation. Britta for a quick turnaround and patient can be returned back to [facility] for rehab in 24-36 hours.
[2018-12-16] MEDS: LEVOTHYROXINE 25 MCG TAB PO SCH (05:13)
[2018-12-16] MEDS: PANTOPRAZOLE 40 MG TABLET PO SCH (05:13)
--- NOTE | 2018-12-16 12:16 | P.DS ---
Providers Date of admission: 12/15/18 02:10 Expected date of discharge: 12/16/18 Attending physician: Jack Manley Consults: 12/15/18 02:08 Consult Physician Stat Consulting Provider: Jeet Davis Consult Reason/Comments: post op abscess Do you want consulting provider notified?: Already Contacted Primary care physician: Jack Manley [facility] Course: Final Diagnoses: (1) lAbdominal pain in a patient with chronic left upper quadrant abdominal wall wound, wound care as per surgery Current Visit: No Status: Acute Code(s): R10.9 - UNSPECIFIED ABDOMINAL PAIN SNOMED Code(s): 40759206 (2) At risk for readmission to hospital Current Visit: Yes Status: Acute Code(s): Z91.89 - OTH PERSONAL RISK FACTORS, NOT ELSEWHERE CLASSIFIED SNOMED Code(s): 4092441408538 -CHronic atrial fibrillation -Recent acute UTI, 3 more days of antibiotic therapy, recheck UA/CX after completed -Recent small bowel resection and perforated strangulated left upper quadrant hernia -Hypothyroidism -Chronic intermittent asthma -Chronic CHF, EF 65-70% -History of CVA, TIA -History of DVT of left leg -Gastroesophageal reflux disease -History of nicotine dependence -Anemia of chronic disease Hospital course:This is a pleasant 83-year-old white female who returned to the emergency department from [facility] rehab where she was just recently discharged from the [facility]. She was known to have a left upper quadrant abscess in her abdomen which is being followed closely by Dr. davis's team and wound care. The surgery is being packed. She is also on treatment for urinary tract infection which seems to be healing he seems to be in no acute distress currently. Evaluated by surgery, no surgical intervention recommended at this time, maintain wound care as per surgery team previously advised. Cleared by surgery for discharge. Patient is being discharged back to [facility] subacute rehab in a stable condition with guarded prognosis. EXAM: GENERAL: Alert & Orieted X 2 no acute distress. Mild confusion, baseline. CARDIOVASCULAR: S1, S2 regular. No murmur RESPIRATION: Nonlabored. Breath sounds diminished in the bases. Scattered rhonc hi, no crackles. No wheezing ABDOMEN: Soft, left upper quadrant chronic wound dressing clean dry and intact, No guarding. no masses palpable.Bowel sounds heard. NERVOUS SYSTEM: Cranial N 2-12 grossly normal. Moves all 4 limbs. Diffuse weakness, No focal deficits. The impression and plan of care has been dictated as directed. : I performed a history and examination of this patient, discussed the same with the dictator. I agree with the dictator's note ,documented as a scribe. Any additional findings or plans will be noted. Time taken: 35 minutes Patient Condition at Discharge: Stable Plan - Discharge Summary Discharge Rx Participant: Yes New Discharge Prescriptions: New Levofloxacin [Levaquin] 500 mg PO DAILY 3 Days #3 tab Continue rOPINIRole HCL [Requip] 2 mg PO BID@0800,1700 Aspirin EC [Ecotrin Low Dose] 81 mg PO HS@2100 Cholecalciferol [Vitamin D3 (25 Mcg = 1000 Iu)] 1,000 unit PO DAILY@1700 Acetaminophen Tab [Tylenol] 650 mg PO Q6HR PRN tab PRN Reason: Mild Pain Or Fever > 100.5 Magnesium Hydroxide [Milk of Magnesia] 2,400 mg PO DAILY PRN PRN Reason: Constipation Na Phos,M-B/Na Phos,Di-Ba [Fleet Adult] 133 ml RECTAL DAILY PRN PRN Reason: Constipation Bisacodyl [Dulcolax] 10 mg RECTAL DAILY PRN PRN Reason: Constipation Potassium Chloride ER [K-Dur 20] 20 meq PO DAILY@1700 Levothyroxine Sodium [Synthroid] 25 mcg PO DAILY@0630 tab Apixaban [Eliquis] 5 mg PO BID@0800,1700 Pantoprazole [Protonix] 40 mg PO DAILY@0600 Melatonin 3 mg PO HS@2100 Discharge Medication List Aspirin EC [Ecotrin Low Dose] 81 mg PO HS@2100 09/06/18 [History] rOPINIRole HCL [Requip] 2 mg PO BID@0800,1700 09/06/18 [History] Cholecalciferol [Vitamin D3 (25 Mcg = 1000 Iu)] 1,000 unit PO DAILY@1700 11/15/18 [History] Acetaminophen Tab [Tylenol] 650 mg PO Q6HR PRN tab 11/26/18 [Rx] Bisacodyl [Dulcolax] 10 mg RECTAL DAILY PRN 11/30/18 [History] Magnesium Hydroxide [Milk of Magnesia] 2,400 mg PO DAILY PRN 11/30/18 [History] Na Phos,M-B/Na Phos,Di-Ba [Fleet Adult] 133 ml RECTAL DAILY PRN 11/30/18 [History] Potassium Chloride ER [K-Dur 20] 20 meq PO DAILY@1700 11/30/18 [History] Levothyroxine Sodium [Synthroid] 25 mcg PO DAILY@0630 tab 12/04/18 [Rx] Apixaban [Eliquis] 5 mg PO BID@0800,1700 12/14/18 [History] Melatonin 3 mg PO HS@2100 12/14/18 [History] Pantoprazole [Protonix] 40 mg PO DAILY@0600 12/14/18 [History] Levofloxacin [Levaquin] 500 mg PO DAILY 3 Days #3 tab 12/16/18 [Rx] Follow up Appointment(s)/Referral(s): Jeet Davis DO [Doctor of Osteopathic Medicine] - 12/24/18 1:30 pm (as previousl advised) Ernie Haynes DO [STAFF PHYSICIAN] - 3 Days Grisel Goodwin [NON-STAFF] - As Needed Activity/Diet/Wound Care/[facility] with CX after antibx completed. cbc,bmp in 3 days Diet: Dysphagia level II; ground Activity: As tolerated Wound care as per surgery Discharge Disposition: TRANSFER TO SNF/F
[2018-12-17] MEDS: PANTOPRAZOLE 40 MG TABLET PO SCH (05:19)
[2018-12-17] MEDS: LEVOTHYROXINE 25 MCG TAB PO SCH (05:19)
[2018-12-17 08:55] VITALS: BP 140/74; PULSE 67; RESP 17; TEMP 98
--- NOTE | 2018-12-17 15:48 | P.PN ---
Subjective Progress Note Date: 12/16/18 This is a pleasant 83-year-old white female who [facility] from the [facility]. She was known to have a left upper quadrant abscess in her abdomen which is being followed closely by Dr. locke's team and wound care. The surgery is being packed. She is also on treatment for urinary tract infection which seems to be healing he seems to be in no acute distress currently. 12/16/2018 no overnight events. Feels better. Vital signs stable.cleared by surgery for discharge. Awaiting preauthorization for return back to subacute rehab. Objective - Vital Signs Vital signs: Vital Signs Temp 98.0 F 12/17/18 06:45 Pulse 67 12/17/18 06:45 Resp 17 12/17/18 06:45 BP 140/74 12/17/18 06:45 Pulse Ox 97 12/17/18 06:45 Intake & Output 12/16/18 12/17/18 12/17/18 18:59 06:59 18:59 Intake Total 280 350 220 Output Total 1 Balance 280 350 219 Intake: Oral 280 350 220 Output: Stool 1 Other: Voiding Method Indwelling Catheter Indwelling Catheter # Voids 1 # Bowel Movements 1 - Exam Vitals:temperature 97.5, pulse 73, respiratory rate 15, blood pressure 119/74, O2 sat 100% on room air. GENERAL: This is a -83 year-old in no apparent distress at the time of examination. Pleasant and cooperative. HEENT: Head is atraumatic, normocephalic. Pupils are equal, round, and reactive to light. Sclerae anicteric. Conjunctivae are clear. Mucus membranes of the mouth are moist. Neck is supple. RESPIRATORY: Clear to auscultation. No wheezes, rales, or rhonchi. No use of accessory muscles. Patient maintaining oxygen saturation greater than 92%. No chest wall tenderness is noted on palpation or with deep breathing. CARDIOVASCULAR: Irregular rate and rhythm. S1 and S2 noted. GASTROINTESTINAL: No distention noted. Abdomen soft and round. Normal active bowel sounds auscultated x 4 quadrants. No pain or tenderness noted upon palpation. INTEGUMENTARY: No cyanosis. No jaundice. No rashes noted. No cellulitis noted. Open wound to the left upper quadrant of the her abdomen with pad EXTREMITIES: 2+ peripheral pulses. No evidence of peripheral edema. No calf tenderness noted. NEUROLOGIC: Cranial nerves II-XII intact. PSYCHIATRIC: Awake, alert, and oriented X 3. Appropriate affect. Intact judgement and insight. - Labs CBC & Chem 7: 12/14/18 22:41 12/14/18 22:41 Assessment and Plan Assessment: (1) lAbdominal pain in a patient with chronic left upper quadrant abdominal wall wound, wound care as per surgery Current Visit: No Status: Acute Code(s): R10.9 - UNSPECIFIED ABDOMINAL PAIN SNOMED Code(s): 59562363 (2) At risk for readmission to hospital Current Visit: Yes Status: Acute Code(s): Z91.89 - OTH PERSONAL RISK FACTORS, NOT ELSEWHERE CLASSIFIED SNOMED Code(s): 6003117386416 -CHronic atrial fibrillation -Recent acute UTI, 3 more days of antibiotic therapy, recheck UA/CX after completed -Recent small bowel resection and perforated strangulated left upper quadrant hernia -Hypothyroidism -Chronic intermittent asthma -Chronic CHF, EF 65-70% -History of CVA, TIA -History of DVT of left leg -Gastroesophageal reflux disease -History of nicotine dependence -Anemia of chronic disease plan: Continue her medication regime ,monitoring and symptomatic treatment. As mentioned above cleared by surgery for discharge back to subacute rehab. preauthorization pending.further recommendations to follow. The impression and plan of care has been dictated as directed. : I performed a history and examination of this patient, discussed the same with the dictator. I agree with the dictator's note ,documented as a scribe. Any additional findings or plans will be noted.
== END 2018-12-17 13:37 | DRG 863 ==
LOC: EC 21:30 → 4SSUR 12-15 02:10
PROVIDERS: ADMIT Family Medicine; ATTEND Family Medicine
DX: T81.41XA Infection following a procedure, superficial incisional surgical site, initial encounter (principal); N39.0 Urinary tract infection, site not specified; D63.8 Anemia in other chronic diseases classified elsewhere; E03.9 Hypothyroidism, unspecified; I48.2 Chronic atrial fibrillation; I50.9 Heart failure, unspecified; J45.20 Mild intermittent asthma, uncomplicated; K21.9 Gastro-esophageal reflux disease without esophagitis; K59.00 Constipation, unspecified; Z79.01 Long term (current) use of anticoagulants; Z79.890 Hormone replacement therapy; Z79.899 Other long term (current) drug therapy; Z80.8 Family history of malignant neoplasm of other organs or systems; Z86.718 Personal history of other venous thrombosis and embolism; Z86.73 Personal history of transient ischemic attack (TIA), and cerebral infarction without residual deficits; Z87.891 Personal history of nicotine dependence; Z90.710 Acquired absence of both cervix and uterus; Z96.652 Presence of left artificial knee joint; Z88.1 Allergy status to other antibiotic agents; Z88.5 Allergy status to narcotic agent; Z88.0 Allergy status to penicillin; Z88.7 Allergy status to serum and vaccine; Z90.3 Acquired absence of stomach [part of]; K44.9 Diaphragmatic hernia without obstruction or gangrene; R13.10 Dysphagia, unspecified
CPT/HCPCS: 36415; 74018; 74177; 80053; 81001; 82150; 83690; 85025; 96374; 96375; 99285